=== PATIENT | female | born 1940 | race Caucasian/White ===

== ENCOUNTER → 2017-03-09 | Day surgery (SDC) | payer BC ==
[2017-02-07 15:24] VITALS: Ht 152.4 cm; Wt 79.1 kg
[~2017-03-09] VITALS: Ht 152.4 cm; Wt 79.1 kg
[~2017-03-09] MED LIST: 500ML BSS 0.3ML EPI 1:1000PF IRRIG ONE; ACETAMINOPHEN 325 MG TAB PO PRN; AMVISC PLUS 0.8ML SYRINGE INT OCU ONE; ATROPINE SULFATE 0.1 MG/ML 5ML SYR IV PRN; AcetaZOLAMIDE 250 MG TAB PO SCH; BETAXOLOL HCL 0.25% OP SUSP PER DROP CHARGE OPL SCH; BRIMONIDINE TART 0.2% OP SOLN PER DROP CHARGE ONE; BSS FLUSH ONE; CALC-354 PO; CLTP PO; ENDOCOAT 0.85ML SYRINGE INT OCU ONE; EpHEDrine SULFATE INJ 50 MG/ML AMP IV PRN; EpINEphrine INJ 1MG/ML AMP 1 MG/ML AMP ONE; FENTANYL CITRATE INJ 50 MCG/1 ML 2 ML VIAL IV PRN; FIBE1CHW PO; FLUMAZENIL 0.1 MG/1 ML 10 ML VIAL IV PRN; GLUC10007 PO; HYDROmorphone INJ 2 MG/ML SYR/VIAL IV PRN; LABETALOL HCL IV 5 MG/ML 20ML IV PRN; LACTATED RINGER'S 1000ML 1,000 ML IV SCH; LIDOCAINE 4% OP SOLN DROP CHARGE ONE; LIDOCAINE 4% OP SOLN DROP CHARGE OPL SCH; LIDOCAINE HCL 1% MPF 2 ML VIAL ONE; LISI-729 PO; MEPERIDINE HCL 25 MG/ML CARP IV PRN; MIDAZOLAM HCL 1 MG/ML 2ML VIAL ONE; MIX: 4ML BSS 1ML EPI 1:1000 PF INSTIL ONE; MOXIFLOXACIN OPH SOLN PER DROP CHARGE ONE; MULT-513 PO; NALOXONE HCL 0.4 MG/1 ML VIAL/CARP IV PRN; OCUCOAT 1 ML SOLN IO ONE; ONDANSETRON INJ 2 MG/ML 2 ML VIAL IV PRN; PANT40TA PO; PHENYLEPHRINE 100MCG/ML 5ML SYR IV PRN; POVIDONE-IODINE OP SOLN 30 ML BTL ONE; PRAV20TA PO; PROPARACAINE 0.5% OP SOLN PER DROP CHARGE OPL SCH; TOBRAMYCIN/DEXAMETHASONE OPH OINT PER APPLN CHARGE ONE
--- NOTE | 2017-03-09 06:45 | History & Physical Bridge - [place] ---
H&P Re-Evaluation Bridge Note: I have examined the patient, reviewed the History & Physical and in the interval since the performance of the History & Physical I have noted the following changes of clinical significance: No changes noted
[2017-03-09] MEDS: PHENYLEPHRINE HCL 2.5% OP SOLN PER DROP CHARGE OPL SCH ×2 (06:48→07:01)
[2017-03-09] MEDS: TROPICAMIDE 1% OP SOLN PER DROP CHARGE OPL SCH ×2 (06:49→07:02)
[2017-03-09] MEDS: CYCLOPENTOLATE HCL 1% OP SOLN PER DROP CHARGE OPL SCH ×2 (06:50→07:03)
[2017-03-09] MEDS: MOXIFLOXACIN OPH SOLN PER DROP CHARGE OPL SCH ×2 (06:51→07:04)
--- NOTE | 2017-03-09 07:36 | Discharge Instructions-SurgCtr ---
Discharge Instructions Date of Service Mar 09, 2017. Visit Reason for Visit: Cataract Left Eye Discharge Discharge Diagnosis / Problem: lens implant left eye Discharge Goals Goal(s): Improve function Activity Recommendations Activity Limitations: resume your previous activity Lifting Limitations: no more than 10 pounds Exercise/Sports Limitations: gradually increase as tolerated May Resume Sexual Activity: when tolerated Shower/Bathe: tomorrow Driving or Machine Use: resume 1 day after discharge Anesthesia . Post Anesthesia Instructions: If you have had General Anesthesia or IV Sedation: * Do not drive today. * Resume driving when surgeon permits. * Do not make important decisions or sign legal documents today. * Call surgeon for: 1. Temperature elevations greater than 101 degrees F. 2. Uncontrollable pain. 3. Excessive bleeding. 4. Persistent nausea and vomiting. 5. Medication intolerance (nausea, vomiting or rash). * For nausea and vomiting use only clear liquids such as: tea, soda, bouillon until nausea subsides, then gradually increase diet as tolerated. * If you have any concerns or questions, call your surgeon's office. If physician is unavailable and it is an emergency, call 911 or go to the nearest emergency room. . Instructions / Follow-Up Instructions / Follow-Up ACTIVITY RECOMMENDATIONS: * Light activities. * Mild irritation and blurred vision are common for the first few days. * You may walk outside, read, watch television. * Redness around the white part of the eye is common. MEDICATIONS: Resume previous medications unless instructed otherwise by your surgeon. * Take white Diamox (Acetazolamide) tablet at 1 pm today. Start all eye drops at 1 pm today: * Eye drops (today and tomorrow): Prednisone - one drop in operative eye every 3 hours while awake Ofloxacin - one drop in operative eye every 3 hours while awake SPECIAL CARE INSTRUCTIONS: * Tape plastic shield over eye to sleep at night. Call your doctor at with any concerns or problems. FOLLOW UP VISIT: Follow-up with Dr Lozano at [place] office as scheduled. Diet Recommendations Home Diet: no limitations Procedures Procedures Performed: cataract extraction with lens implant Pending Studies Studies pending at discharge: no Medical Emergencies . Who to Call and When: Medical Emergencies: If at any time you feel your situation is an emergency, please call 911 immediately. . Non-Emergent Contact Non-Emergency issues call your: Unarmed Security Guard Call Non-Emergent contact if: your pain is not controlled [phone] . . "Provider Documentation" section prepared by Oumar Lozano. .
--- NOTE | 2017-03-09 07:38 | [facility] Operative Report ---
Operative Report Date of Service Mar 09, 2017. Operative Report 1. PREOPERATIVE DIAGNOSIS: Senile nuclear cataract, left eye. 2. POSTOPERATIVE DIAGNOSIS: Senile nuclear cataract, left eye. 3. PROCEDURE: Phacoemulsification of left cataract with posterior chamber lens implant, type Bausch [employer] Lomb, model MI60L, power +22.5 diopters. ANESTHESIA: Local standby. SURGEON: Dr. Lozano. COMPLICATIONS: None. OPERATING TIME: 10 minutes. 4. OPERATION AND FINDINGS: DESCRIPTION OF PROCEDURE: The left pupil was dilated. The anesthetic was administered using a topical technique. The left eye was prepped and draped. A speculum was placed. A clear corneal incision was formed. The chamber was filled with Amvisc Plus and Endocoat. Epinephrine solution was used. A paracentesis was placed. A capsulorrhexis was performed. The nucleus was hydrodissected. The lens was removed with phacoemulsification. Time was 2.31 seconds. The aspiration unit was used to remove the cortex. The capsule was filled with Amvisc Plus. The lens implant was folded and placed into the capsule. The incision was hydrated. The Amvisc was aspirated. The wound was secure. The chamber was deep. The pupil was round. Brimonidine, TobraDex ointment and Vigamox solution were placed. The speculum was removed. The patient was returned to the Recovery Room in stable condition. I attest to the content of the Intraoperative Record and any orders documented therein. Any exceptions are noted below. The scribe's documentation has been prepared in my presence, under my direction and personally reviewed by me in its entirety. I confirm that the note above accurately reflects all work, treatment, procedures, and medical decision making performed by me. I personally scribed for Oumar Lozano M.D. (DONALD) on 03/09/17 at 07:38. Electronically submitted by Liya Martínez ([email or web address]).
[2017-03-09 07:40] VITALS: TEMP 36.5
--- NOTE | 2017-03-09 07:46 | Anesthesia Progress Nt - [facility] ---
Anesthesia Post Op Note Date & Time Mar 09, 2017 at 07:46 Vital Signs Pain Intensity: 0 Vital Signs Past 12 Hours Date Time Temp Pulse Resp B/P (MAP) Pulse Ox O2 Delivery O2 Flow Rate FiO2 03/09/17 07:40 36.5 59 16 109/57 (74) 98 Room Air 03/09/17 06:36 36.6 72 16 151/93 (112) 97 Room Air
[2017-03-09 08:10] VITALS: BP 117/81; PULSE 62; O2SAT 98
== END | disposition home or self-care (01) ==
LOC: X.SURG 06:22
PROVIDERS: ATTEND Specialist
DX: H25.12 Age-related nuclear cataract, left eye (principal); I10 Essential (primary) hypertension

== ENCOUNTER → 2017-03-23 | Day surgery (SDC) | payer BC ==
[2017-03-15 14:41] VITALS: Ht 152.4 cm; Wt 79.1 kg
[~2017-03-23] VITALS: Ht 152.4 cm; Wt 79.1 kg
[~2017-03-23] MED LIST changes: -BETAXOLOL HCL 0.25% OP SUSP PER DROP CHARGE OPL SCH; +BETAXOLOL HCL 0.25% OP SUSP PER DROP CHARGE OPR SCH; -CLTP PO; -FENTANYL CITRATE INJ 50 MCG/1 ML 2 ML VIAL IV PRN; -FLUMAZENIL 0.1 MG/1 ML 10 ML VIAL IV PRN; -HYDROmorphone INJ 2 MG/ML SYR/VIAL IV PRN; -LABETALOL HCL IV 5 MG/ML 20ML IV PRN; -LACTATED RINGER'S 1000ML 1,000 ML IV SCH; +LACTATED RINGER'S 1000ML 500 ML IV SCH; -LIDOCAINE 4% OP SOLN DROP CHARGE OPL SCH; +LIDOCAINE 4% OP SOLN DROP CHARGE OPR SCH; -MEPERIDINE HCL 25 MG/ML CARP IV PRN; -NALOXONE HCL 0.4 MG/1 ML VIAL/CARP IV PRN; -PHENYLEPHRINE 100MCG/ML 5ML SYR IV PRN; -PROPARACAINE 0.5% OP SOLN PER DROP CHARGE OPL SCH; +PROPARACAINE 0.5% OP SOLN PER DROP CHARGE OPR SCH; +TROPICAMIDE 0.5% OP SOLN 15 ML BTL OPR SCH
[2017-03-23] MEDS: PHENYLEPHRINE HCL 2.5% OP SOLN PER DROP CHARGE OPR SCH ×2 (08:22→08:29)
[2017-03-23] MEDS: TROPICAMIDE 1% OP SOLN PER DROP CHARGE OPR SCH ×2 (08:23→08:28)
[2017-03-23] MEDS: CYCLOPENTOLATE HCL 1% OP SOLN PER DROP CHARGE OPR SCH ×2 (08:24→08:27)
[2017-03-23] MEDS: MOXIFLOXACIN OPH SOLN PER DROP CHARGE OPR SCH ×2 (08:25→08:35)
--- NOTE | 2017-03-23 09:13 | Discharge Instructions-SurgCtr ---
Discharge Instructions Date of Service Mar 23, 2017. Visit Reason for Visit: Cataract Right Eye Discharge Discharge Diagnosis / Problem: lens implant right eye Discharge Goals Goal(s): Improve function Activity Recommendations Activity Limitations: resume your previous activity Lifting Limitations: no more than 10 pounds Exercise/Sports Limitations: gradually increase as tolerated May Resume Sexual Activity: when tolerated Shower/Bathe: tomorrow Driving or Machine Use: resume 1 day after discharge Anesthesia . Post Anesthesia Instructions: If you have had General Anesthesia or IV Sedation: * Do not drive today. * Resume driving when surgeon permits. * Do not make important decisions or sign legal documents today. * Call surgeon for: 1. Temperature elevations greater than 101 degrees F. 2. Uncontrollable pain. 3. Excessive bleeding. 4. Persistent nausea and vomiting. 5. Medication intolerance (nausea, vomiting or rash). * For nausea and vomiting use only clear liquids such as: tea, soda, bouillon until nausea subsides, then gradually increase diet as tolerated. * If you have any concerns or questions, call your surgeon's office. If physician is unavailable and it is an emergency, call 911 or go to the nearest emergency room. . Instructions / Follow-Up Instructions / Follow-Up ACTIVITY RECOMMENDATIONS: * Light activities. * Mild irritation and blurred vision are common for the first few days. * You may walk outside, read, watch television. * Redness around the white part of the eye is common. MEDICATIONS: Resume previous medications unless instructed otherwise by your surgeon. * Take white Diamox (Acetazolamide) tablet at 1 pm today. Start all eye drops at 1 pm today: * Eye drops (today and tomorrow): Prednisone - one drop in operative eye every 3 hours while awake Ofloxacin - one drop in operative eye every 3 hours while awake SPECIAL CARE INSTRUCTIONS: * Tape plastic shield over eye to sleep at night. Call your doctor at with any concerns or problems. FOLLOW UP VISIT: Follow-up with Dr Lozano at [place] office as scheduled. Diet Recommendations Home Diet: no limitations Procedures Procedures Performed: cataract extraction with lens implant Pending Studies Studies pending at discharge: no Medical Emergencies . Who to Call and When: Medical Emergencies: If at any time you feel your situation is an emergency, please call 911 immediately. . Non-Emergent Contact Non-Emergency issues call your: Bi Lead Call Non-Emergent contact if: your pain is not controlled [phone] . . "Provider Documentation" section prepared by Oumar Lozano. .
--- NOTE | 2017-03-23 09:14 | [facility] Operative Report ---
Operative Report Date of Service Mar 23, 2017. Operative Report 1. PREOPERATIVE DIAGNOSIS: Senile nuclear cataract, right eye. 2. POSTOPERATIVE DIAGNOSIS: Senile nuclear cataract, right eye. 3. PROCEDURE: Phacoemulsification of right cataract with posterior chamber lens implant, type Bausch [employer] Lomb, model MI60L, power +22.5 diopters. ANESTHESIA: Local standby. SURGEON: Dr. Lozano. COMPLICATIONS: None. OPERATING TIME: 10 minutes. 4. OPERATION AND FINDINGS: DESCRIPTION OF PROCEDURE: The right pupil was dilated. The anesthetic was administered using a topical technique. The right eye was prepped and draped. A speculum was placed. A clear corneal incision was formed. The chamber was filled with Amvisc Plus and Endocoat. Epinephrine solution was used. A paracentesis was placed. A capsulorrhexis was performed. The nucleus was hydrodissected. The lens was removed with phacoemulsification. Time was 3.01 seconds. The aspiration unit was used to remove the cortex. The capsule was filled with Amvisc Plus. The lens implant was folded and placed into the capsule. The incision was hydrated. The Amvisc was aspirated. The wound was secure. The chamber was deep. The pupil was round. Brimonidine, TobraDex ointment and Vigamox solution were placed. The speculum was removed. The patient was returned to the Recovery Room in stable condition. I attest to the content of the Intraoperative Record and any orders documented therein. Any exceptions are noted below. The scribe's documentation has been prepared in my presence, under my direction and personally reviewed by me in its entirety. I confirm that the note above accurately reflects all work, treatment, procedures, and medical decision making performed by me. I personally scribed for Oumar Lozano M.D. (DONALD) on 03/23/17 at 09:14. Electronically submitted by Liya Martínez ([email or web address]).
--- NOTE | 2017-03-23 09:29 | Anesthesiology Progress Note ---
Anesthesia Post Op Note Date & Time Mar 23, 2017 at 09:28 Vital Signs Pain Intensity: 0 Vital Signs Past 12 Hours Date Time Temp Pulse Resp B/P (MAP) Pulse Ox O2 Delivery O2 Flow Rate FiO2 03/23/17 08:16 36.6 73 16 122/80 (94) 98 Room Air Notes Mental Status: alert / awake / arousable, participated in evaluation Nausea / Vomiting: adequately controlled Pain: adequately controlled Airway Patency, RR, SpO2: stable & adequate BP & HR: stable & adequate Hydration State: stable & adequate Anesthetic Complications: no major complications apparent
[2017-03-23 09:46] VITALS: BP 128/79; PULSE 57; TEMP 36.5; O2SAT 97
== END | disposition home or self-care (01) ==
LOC: X.SURG 07:26
PROVIDERS: ATTEND Specialist
DX: H25.11 Age-related nuclear cataract, right eye (principal); I10 Essential (primary) hypertension; K21.9 Gastro-esophageal reflux disease without esophagitis

== ENCOUNTER → 2017-05-18 | Day surgery (SDC) | payer BC ==
[2017-05-17 12:19] VITALS: Ht 152.4 cm; Wt 79.1 kg
[~2017-05-18] VITALS: Ht 152.4 cm; Wt 79.1 kg
[~2017-05-18] MED LIST changes: -500ML BSS 0.3ML EPI 1:1000PF IRRIG ONE; +BSS 500ML IRRIG ONE; -ENDOCOAT 0.85ML SYRINGE INT OCU ONE; -MIX: 4ML BSS 1ML EPI 1:1000 PF INSTIL ONE; +MOXIFLOXACIN OPH SOLN PER DROP CHARGE OPR SCH; -OCUCOAT 1 ML SOLN IO ONE; -ONDANSETRON INJ 2 MG/ML 2 ML VIAL IV PRN; -TROPICAMIDE 0.5% OP SOLN 15 ML BTL OPR SCH; +TROPICAMIDE 1% OP SOLN PER DROP CHARGE OPR SCH; +[UNRECOGNIZED DRUG - REMARK] SCH
[2017-05-18] MEDS: TROPICAMIDE 1% OP SOLN PER DROP CHARGE OPR SCH ×2 (09:24→09:27)
[2017-05-18] MEDS: MOXIFLOXACIN OPH SOLN PER DROP CHARGE OPR SCH ×2 (09:25→09:28)
--- NOTE | 2017-05-18 09:43 | Discharge Instructions-SurgCtr ---
Discharge Instructions Date of Service May 18, 2017. Visit Reason for Visit: Right Eye Lens Fragments Discharge Discharge Diagnosis / Problem: removal of cataract fragments right eye Discharge Goals Goal(s): Improve function Activity Recommendations Activity Limitations: resume your previous activity Lifting Limitations: no more than 10 pounds Exercise/Sports Limitations: gradually increase as tolerated May Resume Sexual Activity: when tolerated Shower/Bathe: tomorrow Driving or Machine Use: resume 1 day after discharge Anesthesia . Post Anesthesia Instructions: If you have had General Anesthesia or IV Sedation: * Do not drive today. * Resume driving when surgeon permits. * Do not make important decisions or sign legal documents today. * Call surgeon for: 1. Temperature elevations greater than 101 degrees F. 2. Uncontrollable pain. 3. Excessive bleeding. 4. Persistent nausea and vomiting. 5. Medication intolerance (nausea, vomiting or rash). * For nausea and vomiting use only clear liquids such as: tea, soda, bouillon until nausea subsides, then gradually increase diet as tolerated. * If you have any concerns or questions, call your surgeon's office. If physician is unavailable and it is an emergency, call 911 or go to the nearest emergency room. . Instructions / Follow-Up Instructions / Follow-Up ACTIVITY RECOMMENDATIONS: * Light activities. * Mild irritation and blurred vision are common for the first few days. * You may walk outside, read, watch television. * Redness around the white part of the eye is common. MEDICATIONS: Resume previous medications unless instructed otherwise by your surgeon. * Take white Diamox (Acetazolamide) tablet at 1 pm today. Start all eye drops at 1 pm today: * Eye drops (today and tomorrow): Prednisone - one drop in operative eye every 3 hours while awake Ofloxacin - one drop in operative eye every 3 hours while awake SPECIAL CARE INSTRUCTIONS: * Tape plastic shield over eye to sleep at night. Call your doctor at with any concerns or problems. FOLLOW UP VISIT: Follow-up with Dr Lozano at [facility] as scheduled. Diet Recommendations Home Diet: no limitations Procedures Procedures Performed: cataract fragment removal x2 Pending Studies Studies pending at discharge: no Medical Emergencies . Who to Call and When: Medical Emergencies: If at any time you feel your situation is an emergency, please call 911 immediately. . Non-Emergent Contact Non-Emergency issues call your: Corporate Executive Chef Call Non-Emergent contact if: your pain is not controlled [phone] . . "Provider Documentation" section prepared by Oumar Lozano. .
--- NOTE | 2017-05-18 09:48 | [facility] Operative Report ---
Operative Report Date of Service May 18, 2017. Operative Report 1. PREOPERATIVE DIAGNOSIS: Retained Nuclear Fragment, right eye. 2. POSTOPERATIVE DIAGNOSIS: Same, right eye. 3. PROCEDURE: Aspiration of retained nuclear fragments right eye. ANESTHESIA: Local standby. SURGEON: Dr. Lozano. COMPLICATIONS: None. OPERATING TIME: 5 minutes. 4. OPERATION AND FINDINGS: DESCRIPTION OF PROCEDURE: The right pupil was dilated. The anesthetic was administered using a topical technique. The right eye was prepped and draped. A speculum was placed. A clear corneal incision was formed. The chamber was filled with Amvisc Plus. A paracentesis was placed. A capsulorrhexis was performed. The aspiration unit was used to remove the two cortex fragments. The Amvisc was aspirated. The wound was secure. The chamber was deep. The pupil was round. Brimonidine, TobraDex ointment and Vigamox solution were placed. The speculum was removed. The patient was returned to the Recovery Room in stable condition. I attest to the content of the Intraoperative Record and any orders documented therein. Any exceptions are noted below. The scribe's documentation has been prepared in my presence, under my direction and personally reviewed by me in its entirety. I confirm that the note above accurately reflects all work, treatment, procedures, and medical decision making performed by me. I personally scribed for Oumar Lozano M.D. (DONALD) on 05/18/17 at 09:48. Electronically submitted by Liya Martínez ([facility]).
[2017-05-18 09:49] VITALS: TEMP 36.6
--- NOTE | 2017-05-18 10:07 | Anesthesia Progress Nt - [facility] ---
Anesthesia Post Op Note Date & Time May 18, 2017 at 10:06 Vital Signs Pain Intensity: 0 Vital Signs Past 12 Hours Date Time Temp Pulse Resp B/P (MAP) Pulse Ox O2 Delivery O2 Flow Rate FiO2 05/18/17 09:49 36.6 71 20 126/81 (96) 97 Room Air 05/18/17 09:11 36.9 83 16 172/113 (132) 100 Room Air Notes Mental Status: alert / awake / arousable, participated in evaluation Pt Amnestic to Procedure: Yes Nausea / Vomiting: adequately controlled Pain: adequately controlled Airway Patency, RR, SpO2: stable & adequate BP & HR: stable & adequate Hydration State: stable & adequate Anesthetic Complications: no major complications apparent
[2017-05-18 10:14] VITALS: BP 125/81; PULSE 71; O2SAT 96
== END | disposition home or self-care (01) ==
LOC: X.SURG 08:57
PROVIDERS: ATTEND Specialist
DX: H59.021 Cataract (lens) fragments in eye following cataract surgery, right eye (principal); I10 Essential (primary) hypertension

== ENCOUNTER 2018-08-24 14:29 | Inpatient (IN) ==
[2018-08-24] MEDS ORDERED: ONDANSETRON INJ 2 MG/ML 2 ML VIAL IV PRN (16:31)
[2018-08-24] MEDS ORDERED: ACETAMINOPHEN 325 MG TAB PO PRN (16:31)
[2018-08-24] MEDS ORDERED: NITROGLYCERIN SL 0.4 MG/TAB TAB SL PRN (16:31)
--- NOTE | 2018-08-24 16:57 | History and Physical Report ---
DATE OF ADMISSION: 08/24/2018 CHIEF COMPLAINT: Palpitations, shortness of breath. HISTORY OF PRESENT ILLNESS: This is a 78-year-old female with past medical history significant for hyperlipidemia, hypertension, osteoporosis, history of breast cancer status post left partial mastectomy in 1992, presents with palpitations and shortness of breath. She was in the ER a couple of days ago. She did have palpitations and shortness of breath after walking [address]. At that time, EKG showed PVCs and first-degree AV block and was thought from dehydration, given fluids and discharged home to followup with PCP.. She has a followup appointment with the family doctor today and she is still feeling the same palpitations and short of breath on and off and on and off lightheadedness. In the PCP's office, heart rate was ranging anywhere from bradycardia to tachycardia, the question of tachybrady syndrome and she was directly admitted to the hospital. Currently, resting comfortable and denies any chest pain. She says the shortness of breath comes and goes, sometimes can happen while she was resting and also lightheadedness and palpitations on and off. Denies any headache, no blurred visions, no earache, no runny nose, no sore throat, no difficulty swallowing. Appetite is okay. No recent weight gain or weight loss. No difficulty swallowing. Sleeps okay. Otherwise, ambulates okay. Denies any nausea, no abdominal pain. Normal bowel and bladder movements. No burning micturition, no hematuria, no melena or hematochezia. Has chronic lower extremity edema, no rash seen. Denies any easy bruising or bleeding. ALLERGIES: ASPIRIN, CAUSES BLEEDING. PAST MEDICAL HISTORY: As mentioned above. PAST SURGICAL HISTORY: EGDs, colonoscopies, laparoscopy, lower abdominal hernia repair, left partial mastectomy in 2018, endoscopic ultrasound. MEDICATIONS: The patient is on glucosamine 1000 mg p.o. daily, calcium plus vitamin D 1 tablet daily, lisinopril 5 mg daily, Protonix 40 mg p.o. daily, pravastatin 20 mg p.o. daily, multivitamins tablet daily. FAMILY HISTORY: Significant for mother who had breast cancer, heart disorder and stroke. Sister has stroke. Father had prostate cancer. SOCIAL HISTORY: , quit smoking more than 30 years ago. No alcohol use, no drug use. REVIEW OF SYMPTOMS: As per HPI. Rest of review of systems is negative. PHYSICAL EXAMINATION: GENERAL: The patient is of moderate built, not in acute distress. VITAL SIGNS: Temperature 36.7, pulse 86, respiratory rate 18, blood pressure 149/83, oxygen 98% room air. HEENT: No pallor, no icterus. NECK: No JVD, no neck masses, no carotid bruits. CARDIOVASCULAR: S1, S2 heard, regular rate and rhythm, no murmur, no gallop. RESPIRATORY SYSTEM: Normal AP diameter. No accessory muscle use. No wheezing, no crackles. ABDOMEN: Soft, bowel sounds present. Nontender. No distention. CENTRAL NERVOUS SYSTEM: Cranial nerves II-XII grossly intact. Nonfocal. EXTREMITIES: Lower extremity edema present, no erythema seen. LABORATORIES: Unavailable at this time. ASSESSMENT AND PLAN: This is a 78-year-old female who presents with palpitations, shortness of breath going on for several days. 1. Palpitations and shortness of breath, going on for several days and also with lightheadedness on and off. Recently in the ER, EKG showed PVCs and first-degree AV block. Recent stress echo about 1 year ago was unremarkable. We will admit to tele floor. Monitor on tele floor. Will Get EKG. Serial cardiac enzymes, echocardiogram. Questionable tachybrady. We will consult cardiology for further recommendations. 2. Elevated dimer. CTA chest No PE. Follow lower extremity Doppler. 3. History of hyperlipidemia. Continue home statin and check fasting lipid profile. 4. Lower extremity edema. chronic. Lympedema? Follow doppler. Follow echo. 3. Gastroesophageal reflux disease. Continue Protonix. 4. Hypertension, on lisinopril. We will monitor the blood pressure. 5. History of breast cancer, status post left partial mastectomy in 1982. 6. Deep venous thrombosis prophylaxis, SCDs for now. 5. Disposition: Close monitoring in tele floor. Level 1 full code. MTDD
--- NOTE | 2018-08-24 16:58 | XRay Report ---
SINGLE VIEW CHEST CLINICAL HISTORY: Dyspnea. FINDINGS: An AP, portable, upright chest radiograph is compared to study dated 08/22/2018. The examina tion is degraded by portable technique and patient rotation. The heart is enlarged and there is athe rosclerotic calcification of the thoracic aorta. The pulmonary vasculature is noncongested. Bibasilar atelectasis is observed. No airspace consolidation or pleural effusion is identified. No pneumothora x is seen. The skeletal structures are osteopenic. The bony thorax is grossly intact. Surgical clips are noted in the left axilla. IMPRESSION: Cardiomegaly with no acute cardiopulmonary abnormality. Electronically signed by: Tej Warren M.D. 08/24/2018 4:56 PM
[2018-08-24 17:20] LABS: Basophils # (auto) 0.03 K/uL (0-0.2); Basophils % (auto) 0.4 %; Eosinophils # (auto) 0.08 K/uL (0-0.5); Hematocrit (blood only) 42.2 % (37-47); Hemoglobin 14.5 g/dL (12.0-16.0); Immature Granulocytes # (auto) 0.01 K/uL (0.00-0.02); Immature Granulocytes % (auto) 0.1 %; Lymphocytes # (auto) 2.17 K/uL (1.2-3.4); Lymphocytes % (auto) 26.2 %; Mean Corpuscular Hgb Conc 34.4 g/dL (32-36); Mean Corpuscular Volume 90.4 fL (80-100); Mean Platelet Volume 10.8 fL (7.4-10.4); Monocytes # (auto) 0.54 K/uL (0.11-0.59); Monocytes % (auto) 6.5 %; Neutrophils # (auto) 5.45 K/uL (1.4-6.5); Neutrophils % (auto) 65.8 %; Platelet Count 278 K/uL (130-400); RDW Coefficient of Variation 13.4 % (11.5-14.5); Red Blood Count 4.67 M/uL (4.2-5.4); White Blood Count 8.28 K/uL (4.8-10.8)
[2018-08-24 17:38] LABS: Partial Thromboplastin Time 27.4 Seconds (21.0-31.0); Prothrombin Time 10.6 Seconds (9.0-12.0)
[2018-08-24 17:40] LABS: Alanine Aminotransferase 21 U/L (12-78); Albumin Level 3.9 gm/dl (3.4-5.0); Aspartate Aminotransferase 16 U/L (15-37); BUN Creatinine Ratio 19.1 (10-20); Blood Urea Nitrogen 13 mg/dl (7-18); Calcium 8.8 mg/dl (8.5-10.1); Carbon Dioxide 24 mmol/L (21-32); Chloride 109 mmol/L (98-107); Creatinine Clr Calc Pharmacy 60.2 ml/min; D Dimer 690 ug/L FEU (0-500); Est GFR (African American) 96.6; Est GFR (Non-African American) 83.4; Glucose 86 mg/dl (70-99); Magnesium 2.1 mg/dl (1.8-2.4); Potassium 3.8 mmol/L (3.5-5.1); Sodium 139 mmol/L (136-145)
[2018-08-24 17:51] LABS: Albumin Globulin Ratio 1.1 (0.9-2); Alkaline Phosphatase 72 U/L (45-117); Bilirubin,Total 0.7 mg/dl (0.2-1); Globulin 3.5 gm/dl (2.5-4.0); Total Protein 7.4 gm/dl (6.4-8.2); Troponin I < 0.015 ng/ml (0-0.045)
[2018-08-24] MEDS ORDERED: OPTIRAY 320 125ml IV PRN (18:23)
--- NOTE | 2018-08-24 18:48 | CT Scan Report ---
CT ANGIOGRAM OF THE CHEST CLINICAL HISTORY: Dyspnea. COMPARISON STUDY: Chest x-ray dated 08/24/2018. TECHNIQUE: Following the IV administration of 119 cc of Optiray 320, CT angiogram of the chest was pe rformed from the upper abdomen to the thoracic inlet utilizing the pulmonary embolus protocol. Images are reviewed in the axial, sagittal, and coronal planes. 3-D MIPS images are created and assessed. I V contrast was administered without complication. A dose lowering technique was utilized adhering to the principles of ALARA. CT DOSE: 281.24 mGy.cm FINDINGS: Thyroid: Imaged portions of the thyroid gland are normal in size and attenuation. Thoracic aorta: The thoracic aorta is normal in caliber and demonstrates standard 3-vessel arch anato my. No dissection is seen. Pulmonary vasculature: The pulmonary trunk is normal in caliber. There are no filling defects identif ied in main, lobar, or segmental pulmonary branches to suggest pulmonary embolus. Heart: The heart is enlarged and without pericardial effusion. Lungs and pleural spaces: There are foci of bibasilar scarring/atelectasis. No airspace consolidation or pleural effusion is identified. The trachea and central airways are clear. Subpleural scarring is noted in the anterior left upper lobe, likely treatment related. Mediastinum: There is no mediastinal lymphadenopathy. A 2.0 cm pretracheal nodule seen on image #188 is hyperdense and likely represents thyroid tissue. Joy: Clear. Axillae: There is no axillary lymphadenopathy. Surgical clips are noted in the left axilla. Upper abdomen: Partially visualized upper abdominal viscera is within normal limits. Skeletal structures: The skeletal structures are osteopenic. Degenerative change is noted in the shou lders and thoracic spine. No lytic or blastic bony lesions are seen. IMPRESSION: 1. There is no evidence of pulmonary embolus in the main, lobar, or segmental pulmonary arteries. 2. There is no airspace consolidation or pleural effusion. 3. Cardiomegaly. Electronically signed by: Tej Warren M.D. 08/24/2018 6:47 PM
--- NOTE | 2018-08-24 21:01 | Ultrasound Report ---
ULTRASOUND BILATERAL LOWER EXTREMITY VENOUS CLINICAL HISTORY: Dyspnea. Clinical concern for deep venous thrombosis. COMPARISON STUDY: Right lower extremity venous ultrasound dated 01/12/2006. TECHNIQUE: Real-time, grayscale, and color Doppler sonography of the deep veins of the right and left lower extremity was performed from the inguinal crease to the calf. Compression and augmentation wer e utilized. FINDINGS: There is no sonographic evidence of deep venous thrombosis identified in the right or left lower extremity. The common femoral, superficial femoral, and popliteal veins are patent and normally compressible bilaterally. The greater saphenous vein and the profunda femoris vein at the junction w ith the common femoral vein are clear in both legs. The visualized calf veins are patent bilaterally. IMPRESSION: There is no sonographic evidence of deep venous thrombosis identified in the right or lef t lower extremity. Electronically signed by: Tej Warren M.D. 08/24/2018 8:59 PM
--- NOTE | 2018-08-25 03:02 | Consultation Report ---
DATE OF CONSULTATION: 08/24/2018 REFERRING PHYSICIAN: Wai Valencia MD PRIMARY CARE PHYSICIAN: Dr. Cain. INDICATIONS: Palpitations, shortness of breath. HISTORY OF PRESENT ILLNESS: The patient is a 78-year-old female whose history is notable for hypertension, hyperlipidemia, past history of breast carcinoma, who has recently developed symptoms of palpitations and mild exertional dyspnea, now intermittent dyspnea at rest, which resulted in ER presentation 2 days ago. Evaluation at that time was unrevealing, though telemetry revealed intermittent ventricular ectopy. The patient was given mild fluid hydration and discharged. Chronic first-degree AV block was noted on EKGs. No acute changes to suggest ischemia or significant electrolyte abnormality. The patient represented to primary care physician's office today once again describing symptoms of palpitations and heart pounding, symptoms of breathlessness at times and often occurring even at rest. She notes no specific exertional relationship; notes no syncope or near syncope; notes no chest pain or discomfort; notes no unexplained fevers, chills, or infections; notes no cough, hoarseness, wheeze or hemoptysis; notes no bleeding difficulties; notes no melena, hematochezia, dysuria or hematuria. Appetite and weight have been generally stable. She is usually active and feeling well. Does senior [employer] classes at least 2 days per week, and notes no specific limitations with such. She has undergone prior stress testing approximately 1 year ago in August of 2017 with patient having no evidence of stress-induced ischemia, the patient exercising for 6 minutes on a Levi protocol with appropriate heart rate and mildly hypertensive blood pressure response. She is now comfortable. Notes no complaints sitting in bed in the hospital. Telemetry on admission demonstrated sinus rhythm with first-degree AV block, intermittent ventricular ectopy, and intermittent bigeminy. REVIEW OF SYSTEMS: As above or otherwise negative. ALLERGIES: NOTED TO BE BLEEDING ISSUES WITH ASPIRIN USAGE INCLUDING GASTRIC ULCER. MEDICATIONS: On admission were calcium carbonate with D 2 tablets per day, cranberry plus vitamin C 1 capsule per day, glucosamine sulfate 1000 mg p.o. daily, Fiber Select Gummies, lisinopril 5 mg p.o. daily, multivitamin per day, pantoprazole 40 mg p.o. daily, and pravastatin 20 mg p.o. daily. PAST SURGICAL HISTORY: Notable for prior left partial mastectomy in 1992. EGD has been performed in 2012 and 2012 as well as 2019 for history of gastric ulcer. FAMILY HISTORY: Notable for mother with a pacemaker. SOCIAL HISTORY: The patient is a prior smoker, but none recently. No significant alcohol use. No [id number] medication use of significance. PHYSICAL EXAMINATION: GENERAL: The patient is a comfortable, age-appropriate female in no acute distress. VITAL SIGNS: Reveals a heart rate of 68-90, blood pressure is 149/83. The patient is afebrile. O2 saturations are 98% on room air. HEENT: Normocephalic, atraumatic. Nares without discharge. Throat was clear. NECK: Supple without thyromegaly, lymphadenopathy, or JVD. There are no carotid bruits. Carotid pulses are 2/4 without delay. LUNGS: Clear to auscultation. CARDIOVASCULAR: Regular. There are audible ventricular ectopic beats and intermittent bigeminy. ABDOMEN: Soft, nontender. There is no palpable hepatosplenomegaly. There is no hepatojugular reflux. EXTREMITIES: Without cyanosis or clubbing. There is 1+ to trace peripheral edema. There is no palpable cord or Homans sign. NEUROLOGIC: The patient is intact. DATA: EKG is pending. EKG done in outpatient setting today revealed sinus rhythm with first-degree AV block, poor R-wave progression across the anterior precordial leads and inferior leads, rate 90 beats per minute. Findings are similar to study of August 2017. LABORATORY STUDIES: Done on 08/22/2018 revealed normal white cell count, hemoglobin, electrolytes, and differential. No troponin or lipase elevation. IMAGING DATA: Chest x-ray reveals flattening of the left atrial border with a normal size cardiac silhouette. IMPRESSION: The patient is a 78-year-old female with recent symptoms of palpitations and breathlessness. Telemetry is demonstrating frequent ventricular ectopy and intermittent bigeminy with negative initial evaluation in the Emergency Room. PLAN: Echocardiogram has been ordered for today. We will maintain on telemetry overnight given symptoms. The patient will be kept n.p.o. in a.m. to assess needs for further testing. In the interim, additional laboratory studies will be ordered including TSH, D-dimer. The patient is currently comfortable without acute complaint and agreeable to plan.
[2018-08-25 05:23] LABS: Chol HDL Ratio 2; Cholesterol 145 mg/dl (0-200); HDL Cholesterol 64 mg/dl; LDL Cholesterol Calculated 73 mg/dl; Triglycerides 38 mg/dl (0-150); Troponin I < 0.015 ng/ml (0-0.045); VLDL Cholesterol 8 mg/dl
[2018-08-25 05:37] LABS: Basophils # (auto) 0.01 K/uL (0-0.2); Basophils % (auto) 0.2 %; Eosinophils # (auto) 0.15 K/uL (0-0.5); Eosinophils % (auto) 2.7 %; Hematocrit (blood only) 37.6 % (37-47); Hemoglobin 12.8 g/dL (12.0-16.0); Immature Granulocytes # (auto) 0.01 K/uL (0.00-0.02); Immature Granulocytes % (auto) 0.2 %; Lymphocytes # (auto) 1.77 K/uL (1.2-3.4); Lymphocytes % (auto) 31.5 %; Mean Corpuscular Volume 90.4 fL (80-100); Mean Platelet Volume 10.3 fL (7.4-10.4); Monocytes # (auto) 0.55 K/uL (0.11-0.59); Monocytes % (auto) 9.8 %; Neutrophils # (auto) 3.13 K/uL (1.4-6.5); Neutrophils % (auto) 55.6 %; Platelet Count 252 K/uL (130-400); RDW Coefficient of Variation 13.4 % (11.5-14.5); Red Blood Count 4.16 M/uL (4.2-5.4); White Blood Count 5.62 K/uL (4.8-10.8)
[2018-08-25 05:54] LABS: BUN Creatinine Ratio 20.4 (10-20); Calcium 7.9 mg/dl (8.5-10.1); Est GFR (African American) 94.6; Est GFR (Non-African American) 81.6; Potassium 3.9 mmol/L (3.5-5.1)
[2018-08-25] MEDS ORDERED: PRAVASTATIN SOD 20 MG TAB PO SCH (09:00)
[2018-08-25] MEDS ORDERED: MULTIVITAMIN TAB PO SCH (09:00)
[2018-08-25] MEDS ORDERED: PANTOprazole 40 MG TAB PO SCH (09:00)
[2018-08-25] MEDS ORDERED: LISINOPRIL 5 MG TAB PO SCH (09:00)
--- NOTE | 2018-08-25 15:51 | Discharge Summary ---
Date of Service August 25, 2018 Admission HPI Per Admitting Provider CHIEF COMPLAINT: Palpitations, shortness of breath. HISTORY OF PRESENT ILLNESS: This is a 78-year-old female with past medical history significant for hyperlipidemia, hypertension, osteoporosis, history of breast cancer status post left partial mastectomy in 1992, presents with palpitations and shortness of breath. She was in the ER a couple of days ago. She did have palpitations and shortness of breath after [place] [address] [place] [address]. At that time, EKG showed PVCs and first-degree AV block and was thought from dehydration, given fluids and discharged home to followup with PCP.. She has a followup appointment with the family doctor today and she is still feeling the same palpitations and short of breath on and off and on and off lightheadedness. In the PCP's office, heart rate was ranging anywhere from bradycardia to tachycardia, the question of tachybrady syndrome and she was directly admitted to the hospital. Currently, resting comfortable and denies any chest pain. She says the shortness of breath comes and goes, sometimes can happen while she was resting and also lightheadedness and palpitations on and off. Denies any headache, no blurred visions, no earache, no runny nose, no sore throat, no difficulty swallowing. Appetite is okay. No recent weight gain or weight loss. No difficulty swallowing. Sleeps okay. Otherwise, ambulates okay. Denies any nausea, no abdominal pain. Normal bowel and bladder movements. No burning micturition, no hematuria, no melena or hematochezia. Has chronic lower extremity edema, no rash seen. Denies any easy bruising or bleeding. ALLERGIES: ASPIRIN, CAUSES BLEEDING. PAST MEDICAL HISTORY: As mentioned above. PAST SURGICAL HISTORY: EGDs, colonoscopies, laparoscopy, lower abdominal hernia repair, left partial mastectomy in 2018, endoscopic ultrasound. MEDICATIONS: The patient is on glucosamine 1000 mg p.o. daily, calcium plus vitamin D 1 tablet daily, lisinopril 5 mg daily, Protonix 40 mg p.o. daily, pravastatin 20 mg p.o. daily, multivitamins tablet daily. FAMILY HISTORY: Significant for mother who had breast cancer, heart disorder and stroke. Sister has stroke. Father had prostate cancer. SOCIAL HISTORY: , quit smoking more than 30 years ago. No alcohol use, no drug use. REVIEW OF SYMPTOMS: As per HPI. Rest of review of systems is negative. Admission Exam Per Admitting Provider PHYSICAL EXAMINATION: GENERAL: The patient is of moderate built, not in acute distress. VITAL SIGNS: Temperature 36.7, pulse 86, respiratory rate 18, blood pressure 149/83, oxygen 98% room air. HEENT: No pallor, no icterus. NECK: No JVD, no neck masses, no carotid bruits. CARDIOVASCULAR: S1, S2 heard, regular rate and rhythm, no murmur, no gallop. RESPIRATORY SYSTEM: Normal AP diameter. No accessory muscle use. No wheezing, no crackles. ABDOMEN: Soft, bowel sounds present. Nontender. No distention. CENTRAL NERVOUS SYSTEM: Cranial nerves II-XII grossly intact. Nonfocal. EXTREMITIES: Lower extremity edema present, no erythema seen. Principal Diagnosis Palpitations and shortness of breath -- likely from PVCs Discharge Exam Vital Signs (Past 24 Hours): Last Vital Signs Temp 36.7 C 08/25/18 15:44 Pulse 70 08/25/18 15:44 Resp 18 08/25/18 15:44 BP 117/75 08/25/18 15:44 Pulse Ox 96 08/25/18 15:44 Physical Exam: General- oriented x 3, not in distress, speaks in sentences with no effort or accessory muscle use Head- atraumatic Eyes- PERRL, EOMI, anicteric ENT- oropharynx clear Neck- supple, no JVD, no adenopathy, no thyromegaly; carotids +2/2, no bruits appreciated Lungs- clear to auscultation bilaterally, no rales/wheezes Heart- normal rate, regular rhythm; no murmurs Abdomen- normal bowel sounds, nondistended, soft, nontender, no masses or hepatosplenomegaly Extremities- no pretibial edema, no calf tenderness; peripheral pulses intact Neuro- alert, oriented x 3; CN 2-12 grossly intact; motor 5/5 bilaterally;sensation 100% on all extremities; no other gross focal neurologic deficits Skin- warm & dry Discharge Data Allergies Allergy/AdvReac Type Severity Reaction Status Date / Time aspirin AdvReac Intermediate HX Verified 08/22/18 12:13 BLEEDING ULCERS Consultations 08/24/18 16:31 Consult Case Management - Discharge Planning Routine 08/25/18 08:00 Consult Cardiology Routine Ordered Studies 08/24/18 17:43 CT angio chest PE protocol Urgent IMPRESSION: 1. There is no evidence of pulmonary embolus in the main, lobar, or segmental pulmonary arteries. 2. There is no airspace consolidation or pleural effusion. 3. Cardiomegaly. US venous doppler LE BI Urgent IMPRESSION: There is no sonographic evidence of deep venous thrombosis identified in the right or left lower extremity. Hospital Course (1) Palpitations: 1. Palpitations and shortness of breath -- likely from PVCs -- acute coronary syndrome ruled out troponins negative, EKG non ischemic -- [facility] [employer] Dr. Pace consulted s/p stress echo:negative for stress induced ischemia -- palpitations felt to be from PVCs betablocker not recommended secondary to 1st degree av block, magnesium once a day recommended -- ff up with Cardiology Clinic for Cardiac Monitoring placement 2. Elevated dimer -- 690 -- CTA chest No PE. Doppler LE: no DVT 3. History of hyperlipidemia. -- LDL 73 Gastroesophageal reflux disease. Continue Protonix. Hypertension, on lisinopril. History of breast cancer, status post left partial mastectomy in 1982. Disposition d/c home ff up with PCP in 3-5 days ff up with [facility] in 2 weeks Total Time Total Time Spent Total Time Spent (In Minutes): 30 minutes Discharge Plan Discharge Items Patient Disposition: Home - Self-Care Reason For Visit: arrhythmia Discharge Diagnosis: PALPITATIONS, LIKELY FROM PVC'S (PREMATURE VENTRICULAR CONTRACTION) Discharge Goals: Diagnostic testing and Therapeutic intervention Activity: As commented below Activity Comment: NO HEAVY EXERTION UNTIL RE-EVALUATED BY PRIMARY CARE PHYSICIAN Lifting: Wait until after follow-up appointment Exercise/Sports: Wait until after follow-up appointment Driving/Machine Use Comment: NO DRIVING UNTIL ALLOWED BY CHEMISTRY DEPARTMENT CHAIR Non-emergency contact: Primary Care Provider and [facility] Call non-emergency contact if: you have any medication questions, your symptoms worsen and you have a fever Follow-up/Referrals: Janell Cain MD [Primary Care Provider] - 08/31/18 2:05 pm Diet: Heart Healthy Add Provider Instructions: PLEASE FOLLOW UP WITH CHEMISTRY DEPARTMENT CHAIR DR. PACE IN 2 WEEKS FOR PLACEMENT OF CELL OPERATION SUPERVISOR. TEL . NO. CALL PRIMARY CARE PHYSICIAN OR RETURN TO THE ER IMMEDIATELY IF WITH WORSENING OF SYMPTOMS, DIZZINESS, LIGHTHEADEDNESS, WEAKNESS. ALWAYS STAY WELL HYDRATED. Prescriptions: New magnesium oxide 400 mg magnesium tablet 400 mg PO DAILY Qty: 30 RF: 2 Continued multivitamin Tablet 1 tab PO DAILY RF: 0 pantoprazole 40 mg tablet,delayed release (DR/EC) 40 mg PO DAILY RF: 0 pravastatin 20 mg tablet 20 mg PO DAILY RF: 0 glucosamine sulfate 1,000 mg Capsule 1,000 mg PO QAM RF: 0 Fiber Select Gummies 2-100 gram-mcg Tablet,Chewable 1 tab PO DAILY RF: 0 Caltrate 600 + D 600 mg (1,500 mg)-800 unit Tablet,Chewable 2 tab PO DAILY RF: 0 Cranberry Plus Vitamin C 140-100 mg Capsule 1 cap PO DAILY RF: 0 lisinopril 5 mg Tablet 5 mg PO DAILY RF: 0 Stand-Alone Forms: [facility] Discharge Orders: Discharge Order (Routine); Ordered 08/25/18 Ordered By: Bulmaro Kirk Admission Data Admit Date/Time: 08/24/18 16:31 Attending Provider: Wai Valencia Admit Provider: Wai Valencia Primary Care Provider: Janell Cain Other Providers: Pablo Pace ; Bulmaro Kirk Service: Telemetry Other Interventions: Discharge Summary Assessment (RN) Last Done: 08/25/18 15:44 DC Date/Time DO NOT enter until pt leaves facility: 08/25/18 15:52
--- NOTE | 2018-08-25 15:51 | Hospitalist Progress Note ---
Date of Service August 25, 2018 delayed entry date of service as noted above Assessment & Plan (1) Palpitations: ASSESSMENT AND PLAN: This is a 78-year-old female who presents with palpitations, shortness of breath going on for several days. 1. Palpitations and shortness of breath, going on for several days and also with lightheadedness on and off. -- acute coronary syndrome ruled out troponins negative, EKG non ischemic -- [employer] Dr. Pace consulted s/p stress echo:negative for stress induced ischemia -- palpitations felt to be from PVCs betablocker not recommended secondary to 1st degree av block, magnesium once a day recommended -- ff up with Cardiology Clinic for Cardiac Monitoring placement 2. Elevated dimer -- 690 -- CTA chest No PE. Doppler LE: no DVT 3. History of hyperlipidemia. -- LDL 73 Gastroesophageal reflux disease. Continue Protonix. Hypertension, on lisinopril. History of breast cancer, status post left partial mastectomy in 1982. Disposition d/c home ff up with PCP in 3-5 days ff up with [employer] in 2 weeks Subjective ff up for palpitations seen resting in bed, comfortable denies chest pain, palpitations, dyspnea, dizziness while admitted s/p stress test no other symptoms states she is ready and would like to be discharged Physical Exam Vital Signs (Past 24 Hours): Last Vital Signs Temp 36.7 C 08/25/18 15:44 Pulse 70 08/25/18 15:44 Resp 18 08/25/18 15:44 BP 117/75 08/25/18 15:44 Pulse Ox 96 08/25/18 15:44 Physical Exam: General- oriented x 3, not in distress, speaks in sentences with no effort or accessory muscle use Head- atraumatic Eyes- PERRL, EOMI, anicteric ENT- oropharynx clear Neck- supple, no JVD, no adenopathy, no thyromegaly; carotids +2/2, no bruits appreciated Lungs- clear to auscultation bilaterally, no rales/wheezes Heart- normal rate, regular rhythm; no murmurs Abdomen- normal bowel sounds, nondistended, soft, nontender, no masses or hepatosplenomegaly Extremities- no pretibial edema, no calf tenderness; peripheral pulses intact Neuro- alert, oriented x 3; CN 2-12 grossly intact; motor 5/5 bilaterally;sensation 100% on all extremities; no other gross focal neurologic deficits Skin- warm & dry
== END 2018-08-25 15:52 | disposition home or self-care (01) | DRG 310 ==
LOC: 2S

== ENCOUNTER 2023-11-09 19:13 | Inpatient (IN) ==
[2023-11-09 20:22] LABS: Basophils # (auto) 0.05 K/uL (0.00-0.20); Basophils % (auto) 0.6 %; Eosinophils # (auto) 0.13 K/uL (0.00-0.50); Eosinophils % (auto) 1.4 %; Hematocrit (blood only) 41.3 % (37.0-47.0); Hemoglobin 14.1 g/dl (12.0-16.0); Immature Granulocytes # (auto) 0.03 K/uL (0.01-0.20); Immature Granulocytes % (auto) 0.3 %; Lymphocytes # (auto) 1.48 K/uL (1.20-3.40); Lymphocytes % (auto) 16.4 %; Mean Corpuscular Hemoglobin 30.6 pg (25.0-34.0); Mean Corpuscular Hgb Conc 34.1 g/dL (32.0-36.0); Mean Corpuscular Volume 89.6 fL (80.0-100.0); Mean Platelet Volume 10.3 fL (9.4-12.4); Monocytes # (auto) 0.47 K/uL (0.11-0.59); Monocytes % (auto) 5.2 %; Neutrophils # (auto) 6.87 K/uL (1.40-6.50); Neutrophils % (auto) 76.1 %; Platelet Count 303 K/uL (130-400); RDW Coefficient of Variation 13.2 % (11.5-14.5); Red Blood Count 4.61 M/uL (4.20-5.40); White Blood Count 9.03 K/ul (4.8-10.8)
[2023-11-09 20:35] LABS: Albumin Globulin Ratio 1.5 (0.9-2); Albumin Level 4.5 gm/dl (3.4-5.0); BUN Creatinine Ratio 21.4 (10-20); Bilirubin,Total 0.6 mg/dl (0.2-1.0); Calcium 9.9 mg/dl (8.6-10.3); Creatinine Clr Calc Pharmacy 56.8 ml/min; Est GFR (African American) 92.9 ml/min; Est GFR (Non-African American) 80.1 ml/min; Globulin 3.1 gm/dl (2.5-4.0); Total Protein 7.6 gm/dl (6.0-8.3)
[2023-11-09 21:08] LABS: Appearance Urine Clear (Clear); Bacteria Urine Automated None Seen (None Seen); Bilirubin Urine Negative (Negative); Blood Urine Negative (Negative); Cast Urine Automated 0-2 /lpf (0-2); Color Urine Yellow; Glucose Urine UA Negative (Negative); Ketones Urine Negative (Negative); Leukocyte Esterase Urine 2+ (Negative); Nitrite Urine Negative (Negative); Protein Urine Negative (Negative); RBC Urine Automated 0-2 /hpf (0-2); Specific Gravity Urine 1.012 (1.000-1.030); Urobilinogen Urine Negative (Negative)
[2023-11-09] MEDS: OPTIRAY 320 100ml IV ONE (22:01)
--- NOTE | 2023-11-09 23:11 | CT Scan Report ---
Exam(s): CT ABDOMEN + PELVIS With Contrast IV Amt: 94 cc opti 320 EXAM: CT Abdomen and Pelvis With Intravenous Contrast CLINICAL HISTORY: Reason for exam: lower abd pain, hx of diverticulitis. TECHNIQUE: Axial computed tomography images of the abdomen and pelvis with intravenous contrast. CTDI is 26.19 mGy and DLP is 1141.36 mGy-cm. Automated exposure control was utilized for the study. A dose lowering technique was utilized adhering to the principles of ALARA. CONTRAST: Patient received 94 cc opti 320 of IV contrast COMPARISON: No relevant prior studies available. FINDINGS: Lung bases: Unremarkable. No mass. No consolidation. ABDOMEN: Liver: Unremarkable. No focal hepatic lesion. Gallbladder and bile ducts: Unremarkable. No calcified stones. No ductal dilation. Pancreas: Unremarkable. No mass. No ductal dilation. Spleen: Unremarkable. No splenomegaly. Adrenals: Unremarkable. No mass. Kidneys and ureters: Unremarkable. No solid mass. No hydronephrosis. Stomach and bowel: Dilated small bowel measuring up to 3.2 cm, consistent with small bowel obstruction. Likely from postoperative adhesions. Transition point likely in the pelvis. Diverticulosis, without acute diverticulitis. PELVIS: Appendix: No findings to suggest acute appendicitis. Bladder: Unremarkable. No mass. Reproductive: Prominent endometrial complex measuring up to 3.1 cm for the patient's age. Endometrial hyperplasia/cancer cannot be excluded. ABDOMEN and PELVIS: Intraperitoneal space: Unremarkable. No free air. No significant fluid collection. Bones/joints: Degenerative changes of the spine. No acute fracture. No dislocation. Soft tissues: Status post ventral abdominal wall hernia repair. Vasculature: Atherosclerotic changes of the aorta. No abdominal aortic aneurysm. Lymph nodes: Unremarkable. No enlarged lymph nodes. IMPRESSION: 1. Dilated small bowel measuring up to 3.2 cm, consistent with small bowel obstruction. Likely from postoperative adhesions. Transition point likely in the pelvis. 2. Prominent endometrial complex measuring up to 3.1 cm for the patient's age. Endometrial hyperplasia/cancer cannot be excluded. 3. Status post ventral abdominal wall hernia repair. Electronically signed by: Sudheer Rushing MD 11/09/23 23:10 PM
[2023-11-09] MEDS: SODIUM CHLORIDE 0.9% 1,000 ML IV SCH (23:27)
--- NOTE | 2023-11-09 23:39 | History & Physical Report ---
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 Surgery consult Re: SBO Urine CS, ceftriaxone DVT prophylaxis. Lovenox subcu Full code Patient requesting updates provider. Mr. Matti Cheung, contact #[phone]. Text document was generated using [employer] voice recognition software. It may contain grammatical or spelling errors. Kindly contact undersigned for clarification of any documentation item in question. ADDENDUM 11/09, 3AM Patient heart rate noted to be 30s around 2:30 AM as per RN. Second-degree AV block Mobitz type II on rhythm strip as per phototypesetting equipment monitor. Patient felt lightheaded during episode. SBP currently 140s, heart rate 60s AP Symptomatic bradycardia PCU transfer Hold beta-tali for now Pacer pads on Atropine as needed symptomatic bradycardia Cardiology consult Re: Symptomatic bradycardia, History of Present Illness Chief Complaint: Abdominal pain Primary Care Provider: Janell Cain MD History obtained from patient, family, and records. Medical history significant for valvular heart disease (mild MR/TR, TTE 2018), hypertension, hyperlipidemia, left breast cancer status post surgery/radiation/tamoxifen Rx, prediabetes, past tobacco abuse. Last confinement August 2018 for palpitations attributed to PVCs. This morning, patient noted achy lower abdominal discomfort reminiscent of diverticulitis attack. Some constipation. No nausea, no emesis. No fever, no chills. No headache, no chest pain, no SOB. Patient brought to ER by family. Initial SBP 200s. Medical History as above Patient home beta-tali increased in frequency last month following ER visit for uncontrolled BP, dizziness, SOB, palpitations. Outpatient Zio patch ordered by PCP last month showed Fifteen patient triggered events were submitted and two diary events were submitted. Symptoms correlated with sensed premature ventricular contractions and premature atrial contractions. The overall frequency of the premature ventricular contractions was moderate, accounting for 1% of the total QRS complexes. No symptoms were associated with relatively brief episodes of supraventricular tachycardia. Surgical History : Partial mastectomy left, hernia repair, breast biopsy, cataract surgeries Family History : Dementia, breast cancer, heart disease, stroke Personal/Social history : Past tobacco abuse, no EtOH intake, retired [employer] employee Allergies Allergy/AdvReac Type Severity Reaction Status Date / Time aspirin AdvReac Intermediate HX Verified 11/09/23 23:31 BLEEDING ULCERS Home Medications Medication Instructions Recorded Confirmed Type pantoprazole 40 mg tablet,delayed 40 mg PO QAM 08/22/18 11/10/23 History release pravastatin 20 mg tablet 20 mg PO DAILY 08/22/18 11/10/23 History lisinopril 5 mg tablet 5 mg PO QAM 08/24/18 11/10/23 History hydrochlorothiazide 25 mg tablet 25 mg PO 2XWK 11/09/23 11/10/23 History metoprolol succinate 25 mg 12.5 mg PO AMHS 11/09/23 11/10/23 History tablet,extended release 24 hr B.animalis-B.bifidum-B.infantis-B.longum 1 tab PO QAM 11/10/23 11/10/23 History 10 mg-15 mg tablet,delay rel Turmeric Curcumin 5-1000mg 1,000 mg PO DAILY 11/10/23 11/10/23 History apple cider vinegar 300 mg tablet 300 mg PO DAILY 11/10/23 11/10/23 History calcium carbonate 600 mg-vitamin 2 tab PO DAILY 11/10/23 11/10/23 History D3 5 mcg (200 unit) tablet (Calcium 600 + D(3)) cholecalciferol (vitamin D3) 50 50 mcg PO DAILY 11/10/23 11/10/23 History mcg (2,000 unit) tablet (Vitamin D3) cranberry extract 500 mg capsule 1,000 mg PO DAILY 11/10/23 11/10/23 History denosumab 60 mg/mL subcutaneous 60 mg subcut .EVERY 6 MONTHS 11/10/23 11/10/23 History syringe (Prolia) glucosamine-chondroitin 250 mg-200 2 tab PO DAILY 11/10/23 11/10/23 History mg tablet (Osteo Bi-Flex) magnesium 250 mg tablet 250 mg PO QAM 11/10/23 11/10/23 History multivitamin with minerals 2 tab PO DAILY 11/10/23 11/10/23 History (Hair,Skin and Nails tablet) nutritional supplement-fiber oral 2 ea PO DAILY 11/10/23 11/10/23 History liquid Past Med/Surg History Problem List (Updated 11/10/23 @ 01:57 by Thaddeus Ferreira MD) Asymptomatic hypertensive urgency SBO (small bowel obstruction) (Acute) Palpitations HLD (hyperlipidemia) (Chronic) Senile osteoporosis (Chronic) History of breast cancer (Chronic) Peptic ulcer disease (Chronic) Diverticulosis (Chronic) History of partial mastectomy of left breast (Chronic) History of hernia repair (Chronic) History of colonoscopy with polypectomy (Chronic) History of esophagogastroduodenoscopy (EGD) (Chronic) HTN (hypertension) (Chronic) Medical History No significant family history Anemia HTN (hypertension) Surgical History No significant past surgical history Social History Smoking Status: Never smoker Second Hand Exposure: No; Do You Dip or Chew Tobacco: No; Hx Alcohol Use: No Hx Substance Use: No Preferred Language: Cameroonian Communication Ability: Effective Back Closer Required: No Beliefs That Will Affect Care: None Current Living Situation: Spouse Feels Safe at Home: Yes Assistive Devices: None Review of Systems Review of Systems: As per HPI, all other systems reviewed and negative Physical Exam Physical Exam: GENERAL: Slightly uncomfortable, obese, pleasant, no respiratory distress SKIN: Normal color, warm HEENT: [place] palpebral conjunctivae, no ptosis, dry buccal mucosa NECK : Supple, short neck, no tenderness CHEST : CTA, no tenderness HEART : RRR, no obvious murmurs ABDOMEN: distention, hypogastric tenderness EXTREMITIES : Minimal LE swelling, no LE tenderness, no other conspicuous deformities noted NEUROLOGIC : Coherent, no facial asymmetry, no other gross focality Results & Data Results & Data Vital Signs (Past 12 Hours) Vital Signs Temp Pulse Pulse Resp BP BP Pulse Ox 11/09/23 22:30 82 22 95 11/09/23 22:20 83 19 172/81 H 97 11/09/23 22:07 87 21 97 11/09/23 21:31 72 14 179/89 H 96 11/09/23 21:00 69 17 96 11/09/23 20:30 68 15 97 11/09/23 20:25 73 20 96 11/09/23 20:25 73 20 204/99 H 96 11/09/23 20:14 76 20 95 11/09/23 20:14 76 11/09/23 19:17 36.6 C 85 18 173/113 H 95 O2 Del Method 11/09/23 22:30 Room Air 11/09/23 22:20 Room Air 11/09/23 22:07 Room Air 11/09/23 21:31 Room Air 11/09/23 21:00 Room Air 11/09/23 20:30 Room Air 11/09/23 20:25 Room Air 11/09/23 20:25 Room Air 11/09/23 20:14 Room Air 11/09/23 20:14 11/09/23 19:17 Room Air Laboratory Results Laboratory Results WBC 9.03 K/ul (4.8-10.8) 11/09/23 19:45 RBC 4.61 M/uL (4.20-5.40) 11/09/23 19:45 Hgb 14.1 g/dl (12.0-16.0) 11/09/23 19:45 Hct 41.3 % (37.0-47.0) 11/09/23 19:45 MCV 89.6 fL (80.0-100.0) 11/09/23 19:45 MCH 30.6 pg (25.0-34.0) 11/09/23 19:45 MCHC 34.1 g/dL (32.0-36.0) 11/09/23 19:45 RDW Std Deviation 43.0 fL (36.4-46.3) 11/09/23 19:45 RDW Coeff of Prachi 13.2 % (11.5-14.5) 11/09/23 19:45 Plt Count 303 K/uL (130-400) 11/09/23 19:45 MPV 10.3 fL (9.4-12.4) 11/09/23 19:45 Immature Gran % (Auto) 0.3 % 11/09/23 19:45 Neut % (Auto) 76.1 % 11/09/23 19:45 Lymph % (Auto) 16.4 % 11/09/23 19:45 [place] % (Auto) 5.2 % 11/09/23 19:45 Eos % (Auto) 1.4 % 11/09/23 19:45 Baso % (Auto) 0.6 % 11/09/23 19:45 Neut # (Auto) 6.87 K/uL (1.40-6.50) H 11/09/23 19:45 Lymph # (Auto) 1.48 K/uL (1.20-3.40) 11/09/23 19:45 [place] # (Auto) 0.47 K/uL (0.11-0.59) 11/09/23 19:45 Eos # (Auto) 0.13 K/uL (0.00-0.50) 11/09/23 19:45 Baso # (Auto) 0.05 K/uL (0.00-0.20) 11/09/23 19:45 Immature Gran # (Auto) 0.03 K/uL (0.01-0.20) 11/09/23 19:45 Sodium 138 mmol/L (136-145) 11/09/23 19:45 Potassium 4.0 mmol/L (3.5-5.1) 11/09/23 19:45 Chloride 105 mmol/L (98-107) 11/09/23 19:45 Carbon Dioxide 27 mmol/L (21-32) 11/09/23 19:45 Anion Gap 6 (3-11) 11/09/23 19:45 BUN 15 mg/dl (6-23) 11/09/23 19:45 Creatinine 0.70 mg/dl (0.6-1.2) 11/09/23 19:45 Est Cr Clr Drug Dosing 56.8 ml/min 11/09/23 19:45 Est GFR ( Amer) 92.9 ml/min 11/09/23 19:45 Est GFR (Non-Af Amer) 80.1 ml/min 11/09/23 19:45 BUN/Creatinine Ratio 21.4 (10-20) H 11/09/23 19:45 Glucose 111 mg/dl (70-99(Fasting)) H 11/09/23 19:45 Calcium 9.9 mg/dl (8.6-10.3) 11/09/23 19:45 Total Bilirubin 0.6 mg/dl (0.2-1.0) 11/09/23 19:45 AST 22 U/L (13-39) 11/09/23 19:45 ALT 17 U/L (7-52) 11/09/23 19:45 Alkaline Phosphatase 49 U/L (34-104) 11/09/23 19:45 Total Protein 7.6 gm/dl (6.0-8.3) 11/09/23 19:45 Albumin 4.5 gm/dl (3.4-5.0) 11/09/23 19:45 Globulin 3.1 gm/dl (2.5-4.0) 11/09/23 19:45 Albumin/Globulin Ratio 1.5 (0.9-2) 11/09/23 19:45 Lipase 20 U/L (11-82) 11/09/23 19:45 Urine Color Yellow 11/09/23 Unknown Urine Appearance Clear (Clear) 11/09/23 Unknown Urine pH 6.0 (4.5-7.5) 11/09/23 Unknown Ur Specific [place] 1.012 (1.000-1.030) 11/09/23 Unknown Urine Protein Negative (Negative) 11/09/23 Unknown Urine Glucose (UA) Negative (Negative) 11/09/23 Unknown Urine Ketones Negative (Negative) 11/09/23 Unknown Urine Blood Negative (Negative) 11/09/23 Unknown Urine Nitrite Negative (Negative) 11/09/23 Unknown Urine Bilirubin Negative (Negative) 11/09/23 Unknown Urine Urobilinogen Negative (Negative) 11/09/23 Unknown Ur Leukocyte Esterase 2+ (Negative) H 11/09/23 Unknown Urine WBC (Auto) 6-10 /hpf (0-5) H 11/09/23 Unknown Urine RBC (Auto) 0-2 /hpf (0-2) 11/09/23 Unknown U Hyaline Cast (Auto) 0-2 /lpf (0-2) 11/09/23 Unknown U Epithel Cells (Auto) 3-5 /hpf (0-2) H 11/09/23 Unknown Urine Bacteria (Auto) None Seen (None Seen) 11/09/23 Unknown Impressions Abdomen/Pelvis CT 11/09/23 19:47 Exam(s): CT ABDOMEN + PELVIS With Contrast IV Amt: 94 cc opti 320 EXAM: CT Abdomen and Pelvis With Intravenous Contrast CLINICAL HISTORY: Reason for exam: lower abd pain, hx of diverticulitis. TECHNIQUE: Axial computed tomography images of the abdomen and pelvis with intravenous contrast. CTDI is 26.19 mGy and DLP is 1141.36 mGy-cm. Automated exposure control was utilized for the study. A dose lowering technique was utilized adhering to the principles of ALARA. CONTRAST: Patient received 94 cc opti 320 of IV contrast COMPARISON: No relevant prior studies available. FINDINGS: Lung bases: Unremarkable. No mass. No consolidation. ABDOMEN: Liver: Unremarkable. No focal hepatic lesion. Gallbladder and bile ducts: Unremarkable. No calcified stones. No ductal dilation. Pancreas: Unremarkable. No mass. No ductal dilation. Spleen: Unremarkable. No splenomegaly. Adrenals: Unremarkable. No mass. Kidneys and ureters: Unremarkable. No solid mass. No hydronephrosis. Stomach and bowel: Dilated small bowel measuring up to 3.2 cm, consistent with small bowel obstruction. Likely from postoperative adhesions. Transition point likely in the pelvis. Diverticulosis, without acute diverticulitis. PELVIS: Appendix: No findings to suggest acute appendicitis. Bladder: Unremarkable. No mass. Reproductive: Prominent endometrial complex measuring up to 3.1 cm for the patient's age. Endometrial hyperplasia/cancer cannot be excluded. ABDOMEN and PELVIS: Intraperitoneal space: Unremarkable. No free air. No significant fluid collection. Bones/joints: Degenerative changes of the spine. No acute fracture. No dislocation. Soft tissues: Status post ventral abdominal wall hernia repair. Vasculature: Atherosclerotic changes of the aorta. No abdominal aortic aneurysm. Lymph nodes: Unremarkable. No enlarged lymph nodes. IMPRESSION: 1. Dilated small bowel measuring up to 3.2 cm, consistent with small bowel obstruction. Likely from postoperative adhesions. Transition point likely in the pelvis. 2. Prominent endometrial complex measuring up to 3.1 cm for the patient's age. Endometrial hyperplasia/cancer cannot be excluded. 3. Status post ventral abdominal wall hernia repair. Electronically signed by: Sudheer Rushing MD 11/09/23 23:10 PM Diagnostic Findings EKG as per my interpretation : Rate 75, LAD, LAFB, 1 AVB, anterolateral and inferior infarcts, T wave abnormalities inferior leads
--- NOTE | 2023-11-10 00:16 | Emergency Department Note ---
History of Present Illness General Chief Complaint: GI Assessment Stated Complaint: DIVERTICULITIS, BACK PAIN, GAS/BLOATING Time Seen by Provider: 11/09/23 19:59 History of Present Illness Provider Complaint: abdominal pain Onset (ago): 7 hour(s) Pain Consistency: intermittent Location: LLQ Migration to: LUQ Severity: moderate Maximum Pain Intensity: 6 Current Pain Intensity: 6 Quality: + cramping, + stabbing, + aching, + sharp and + dull Relieved By: + nothing Exacerbated By: + nothing Context: + history of similar episodes (Feels like previous diverticulitis); no foreign travel, no possible food poisoning, no sick contacts, no recent antibiotic use, no recent surgery/procedure or no recent injury Associated Symptoms: no nausea, no vomiting, no diarrhea, no fever, no chills, no constipation, no dysuria, no hematemesis, no melena, no hematuria and no syncope Home Medications Medication Instructions Recorded Confirmed Type pantoprazole 40 mg tablet,delayed 40 mg PO QAM 08/22/18 11/10/23 History release pravastatin 20 mg tablet 20 mg PO DAILY 08/22/18 11/10/23 History lisinopril 5 mg tablet 5 mg PO QAM 08/24/18 11/10/23 History hydrochlorothiazide 25 mg tablet 25 mg PO 2XWK 11/09/23 11/10/23 History metoprolol succinate 25 mg 12.5 mg PO AMHS 11/09/23 11/10/23 History tablet,extended release 24 hr Allergies Allergy/AdvReac Type Severity Reaction Status Date / Time aspirin AdvReac Intermediate HX Verified 11/09/23 23:31 BLEEDING ULCERS Past Med/Surg History Problem List (Updated 11/10/23 @ 00:24 by Cortes Marcos MD) SBO (small bowel obstruction) (Acute) Palpitations HLD (hyperlipidemia) (Chronic) Senile osteoporosis (Chronic) History of breast cancer (Chronic) Peptic ulcer disease (Chronic) Diverticulosis (Chronic) History of partial mastectomy of left breast (Chronic) History of hernia repair (Chronic) History of colonoscopy with polypectomy (Chronic) History of esophagogastroduodenoscopy (EGD) (Chronic) HTN (hypertension) (Chronic) Medical History No significant family history Anemia HTN (hypertension) Surgical History No significant past surgical history Social History Smoking Status: Never smoker Second Hand Exposure: No; Do You Dip or Chew Tobacco: No; Hx Alcohol Use: No Hx Substance Use: No Preferred Language: Frisian Communication Ability: Effective Preschool Program Director Required: No Beliefs That Will Affect Care: None Current Living Situation: Spouse Feels Safe at Home: Yes Assistive Devices: None Physical Exam 2 Vital Signs: Vital Signs - 24 hr 11/09/23 19:17 11/09/23 20:14 11/09/23 20:14 Temperature 36.6 C Temperature Source Temporal Artery Sc an Pulse Rate 85 76 76 Pulse Rate [Apical ] Pulse Rate from Sp O2 Sensor 75 Pulse Rhythm Pulse Rhythm [Apic al] Respiratory Rate 18 20 Respiratory Effort / Characteristics Non-Labored Respiratory Depth Normal Respiratory Patter n Blood Pressure 173/113 H Blood Pressure [Le ft Arm] Blood Pressure [place] 133 Blood Pressure [place] [Left Arm] Pulse Oximetry 95 95 Oxygen Delivery Me thod Room Air Room Air Sepsis Recent Feve r Within 48 Hours No Sepsis New/Unexpla ined Change in Men conrad Status No Sepsis Action Take n by Nursing No Action Required 11/09/23 20:25 11/09/23 20:25 11/09/23 20:30 Temperature Temperature Source Pulse Rate 73 68 Pulse Rate [Apical ] 73 Pulse Rate from Sp O2 Sensor 68 Pulse Rhythm Regular Pulse Rhythm [Apic al] Regular Respiratory Rate 20 20 15 Respiratory Effort / Characteristics Non-Labored Sponta neous Respiratory Depth Normal Respiratory Patter n Regular Blood Pressure Blood Pressure [Le ft Arm] 204/99 H Blood Pressure [place] Blood Pressure [place] [Left Arm] 134 Pulse Oximetry 96 96 97 Oxygen Delivery Me thod Room Air Room Air Room Air Sepsis Recent Feve r Within 48 Hours Sepsis New/Unexpla ined Change in Men conrad Status Sepsis Action Take n by Nursing 11/09/23 21:00 11/09/23 21:31 11/09/23 22:07 Temperature Temperature Source Pulse Rate 69 72 87 Pulse Rate [Apical ] Pulse Rate from Sp O2 Sensor 69 72 Pulse Rhythm Pulse Rhythm [Apic al] Respiratory Rate 17 14 21 Respiratory Effort / Characteristics Respiratory Depth Respiratory Patter n Blood Pressure 179/89 H Blood Pressure [Le ft Arm] Blood Pressure [place] 119 Blood Pressure [place] [Left Arm] Pulse Oximetry 96 96 97 Oxygen Delivery Me thod Room Air Room Air Room Air Sepsis Recent Feve r Within 48 Hours Sepsis New/Unexpla ined Change in Men conrad Status Sepsis Action Take n by Nursing 11/09/23 22:20 11/09/23 22:30 Temperature Temperature Source Pulse Rate 83 82 Pulse Rate [Apical ] Pulse Rate from Sp O2 Sensor 83 82 Pulse Rhythm Pulse Rhythm [Apic al] Respiratory Rate 19 22 Respiratory Effort / Characteristics Respiratory Depth Respiratory Patter n Blood Pressure 172/81 H Blood Pressure [Le ft Arm] Blood Pressure [place] 111 Blood Pressure [place] n [Left Arm] Pulse Oximetry 97 95 Oxygen Delivery Me thod Room Air Room Air Sepsis Recent Feve r Within 48 Hours Sepsis New/Unexpla ined Change in Men conrad Status Sepsis Action Take n by Nursing Physical Exam: Physical Exam GENERAL: She is oriented to person, place, and time. She appears well-developed and well-nourished. She does not appear distressed. HENT: Exam performed. -Head: Normocephalic and atraumatic. -Right Ear: External ear normal. No mastoid erythema -Left Ear: External ear normal. No mastoid erythema -Mouth/Throat: The oropharynx is clear and moist. No trismus in the jaw. No dental abscesses or uvula swelling. No oropharyngeal exudate or tonsillar abscesses. EYES: Conjunctivae and EOM are normal.Right eye exhibits no discharge. Left eye exhibits no discharge. No scleral icterus. NECK: Normal range of motion. Neck supple. No JVD present. No tracheal deviation and normal range of motion present. CV: Normal rate, regular rhythm, normal heart sounds and intact distal pulses. There is no peripheral edema. Palpable radial pulses bue. PULM/CHEST: Effort normal and breath sounds normal. No respiratory distress. No stridor. She has no wheezes. She has no rales. -Chest Wall: She exhibits no tenderness. ABD: The abdomen is soft. Bowel sounds are normal. She has no distension. No mass is present. There is tenderness to palpation of the left lower quadrant and left upper quadrant. There is no rebound, no guarding, no Barnett's sign and no tenderness at McBurney's point. Rovsig negative MUSC/SKEL: Normal range of motion. There is no peripheral edema, tenderness or deformity. NEURO: Motor and sensation grossly intact. SKIN: Skin is warm and dry. She is not diaphoretic. PSYCH: She has a normal mood and affect. Behavior is normal. Judgment and thought content normal. Course Course 1958: The patient was evaluated in room B8. A complete history and physical exam was performed Cardiac monitoring: An order was placed for continuous cardiac monitoring. The monitor shows a rate of 80 with sinus rhythm interpreted by de 2315: Vital signs stable. Labs within normal limits. Imaging shows SBO. [facility] on [facility]. Administered Medications Sodium Chloride (Nss) 1,000 mls @ 60 mls/hr IV .[id number] GABY Stop: 12/09/23 23:14 Last Admin: 11/09/23 23:27 Dose: 80 mls/hr Documented By: GLADYS Discontinued Medications Ioversol (Optiray 320 100ml) 94 ml IV ONCE ONE Stop: 11/09/23 22:01 Last Admin: 11/09/23 22:01 Dose: 94 ml Documented By: BRYSON Medical Decision Making Laboratory Data Attestation: I reviewed the patient's lab results. 11/09/23 19:45 11/09/23 19:45 Lab Results 11/09/23 11/09/23 Range/Units 19:45 Unknown WBC 9.03 (4.8-10.8) K/ul RBC 4.61 (4.20-5.40) M/uL Hgb 14.1 (12.0-16.0) g/dl Hct 41.3 (37.0-47.0) % MCV 89.6 (80.0-100.0) fL MCH 30.6 (25.0-34.0) pg MCHC 34.1 (32.0-36.0) g/dL RDW Std Deviation 43.0 (36.4-46.3) fL RDW Coeff of Prachi 13.2 (11.5-14.5) % Plt Count 303 (130-400) K/uL MPV 10.3 (9.4-12.4) fL Immature Gran % (Auto) 0.3 % Neut % (Auto) 76.1 % Lymph % (Auto) 16.4 % [place] % (Auto) 5.2 % Eos % (Auto) 1.4 % Baso % (Auto) 0.6 % Neut # (Auto) 6.87 H (1.40-6.50) K/uL Lymph # (Auto) 1.48 (1.20-3.40) K/uL [place] # (Auto) 0.47 (0.11-0.59) K/uL Eos # (Auto) 0.13 (0.00-0.50) K/uL Baso # (Auto) 0.05 (0.00-0.20) K/uL Immature Gran # (Auto) 0.03 (0.01-0.20) K/uL Sodium 138 (136-145) mmol/L Potassium 4.0 (3.5-5.1) mmol/L Chloride 105 (98-107) mmol/L Carbon Dioxide 27 (21-32) mmol/L Anion Gap 6 (3-11) BUN 15 (6-23) mg/dl Creatinine 0.70 (0.6-1.2) mg/dl Est Cr Clr Drug Dosing 56.8 ml/min Est GFR ( Amer) 92.9 ml/min Est GFR (Non-Af Amer) 80.1 ml/min BUN/Creatinine Ratio 21.4 H (10-20) Glucose 111 H (70-99(Fasting)) mg/dl Calcium 9.9 (8.6-10.3) mg/dl Total Bilirubin 0.6 (0.2-1.0) mg/dl AST 22 (13-39) U/L ALT 17 (7-52) U/L Alkaline Phosphatase 49 (34-104) U/L Total Protein 7.6 (6.0-8.3) gm/dl Albumin 4.5 (3.4-5.0) gm/dl Globulin 3.1 (2.5-4.0) gm/dl Albumin/Globulin Ratio 1.5 (0.9-2) Lipase 20 (11-82) U/L Urine Color Yellow Urine Appearance Clear (Clear) Urine pH 6.0 (4.5-7.5) Ur Specific [place] 1.012 (1.000-1.030) Urine Protein Negative (Negative) Urine Glucose (UA) Negative (Negative) Urine Ketones Negative (Negative) Urine Blood Negative (Negative) Urine Nitrite Negative (Negative) Urine Bilirubin Negative (Negative) Urine Urobilinogen Negative (Negative) Ur Leukocyte Esterase 2+ H (Negative) Urine WBC (Auto) 6-10 H (0-5) /hpf Urine RBC (Auto) 0-2 (0-2) /hpf U Hyaline Cast (Auto) 0-2 (0-2) /lpf U Epithel Cells (Auto) 3-5 H (0-2) /hpf Urine Bacteria (Auto) None Seen (None Seen) Imaging Data Radiologist's Impression: Abdomen/Pelvis CT 11/09/23 19:47 Exam(s): CT ABDOMEN + PELVIS With Contrast IV Amt: 94 cc opti 320 EXAM: CT Abdomen and Pelvis With Intravenous Contrast CLINICAL HISTORY: Reason for exam: lower abd pain, hx of diverticulitis. TECHNIQUE: Axial computed tomography images of the abdomen and pelvis with intravenous contrast. CTDI is 26.19 mGy and DLP is 1141.36 mGy-cm. Automated exposure control was utilized for the study. A dose lowering technique was utilized adhering to the principles of ALARA. CONTRAST: Patient received 94 cc opti 320 of IV contrast COMPARISON: No relevant prior studies available. FINDINGS: Lung bases: Unremarkable. No mass. No consolidation. ABDOMEN: Liver: Unremarkable. No focal hepatic lesion. Gallbladder and bile ducts: Unremarkable. No calcified stones. No ductal dilation. Pancreas: Unremarkable. No mass. No ductal dilation. Spleen: Unremarkable. No splenomegaly. Adrenals: Unremarkable. No mass. Kidneys and ureters: Unremarkable. No solid mass. No hydronephrosis. Stomach and bowel: Dilated small bowel measuring up to 3.2 cm, consistent with small bowel obstruction. Likely from postoperative adhesions. Transition point likely in the pelvis. Diverticulosis, without acute diverticulitis. PELVIS: Appendix: No findings to suggest acute appendicitis. Bladder: Unremarkable. No mass. Reproductive: Prominent endometrial complex measuring up to 3.1 cm for the patient's age. Endometrial hyperplasia/cancer cannot be excluded. ABDOMEN and PELVIS: Intraperitoneal space: Unremarkable. No free air. No significant fluid collection. Bones/joints: Degenerative changes of the spine. No acute fracture. No dislocation. Soft tissues: Status post ventral abdominal wall hernia repair. Vasculature: Atherosclerotic changes of the aorta. No abdominal aortic aneurysm. Lymph nodes: Unremarkable. No enlarged lymph nodes. IMPRESSION: 1. Dilated small bowel measuring up to 3.2 cm, consistent with small bowel obstruction. Likely from postoperative adhesions. Transition point likely in the pelvis. 2. Prominent endometrial complex measuring up to 3.1 cm for the patient's age. Endometrial hyperplasia/cancer cannot be excluded. 3. Status post ventral abdominal wall hernia repair. Electronically signed by: Sudheer Rushing MD 11/09/23 23:10 PM [facility] Narrative 195: The patient was evaluated in room B8. A complete history and physical exam was performed Cardiac monitoring: An order was placed for continuous cardiac monitoring. The monitor shows a rate of 80 with sinus rhythm interpreted by de 2315: Vital signs stable. Labs within normal limits. Imaging shows SBO. [facility] on consult. Impression & Plan SBO (small bowel obstruction) Discharge Plan Visit Data Chief Complaint: GI Assessment Stated Complaint: DIVERTICULITIS, BACK PAIN, GAS/BLOATING ED Provider: Cortes Marcos Discharge Problem: SBO (small bowel obstruction) Patient Disposition: Admitted As Inpatient Forms Stand Alone Forms: [facility] Prescriptions Prescriptions: No Action pantoprazole 40 mg tablet,delayed release (DR/EC) 40 mg PO QAM pravastatin 20 mg tablet 20 mg PO DAILY lisinopril 5 mg Tablet 5 mg PO QAM metoprolol succinate 25 mg tablet extended release 24 hr 12.5 mg PO AMHS hydrochlorothiazide 25 mg tablet 25 mg PO 2XWK Rx Instructions: may take as needed for edema Referrals Referrals: Janell Cain MD [Primary Care Provider] -
[2023-11-10] MEDS ORDERED: PROMETHAZINE HCL 6.25 MG in SODIUM CHLORIDE 0.9% 50 ML IV PRN (00:22)
[2023-11-10] MEDS ORDERED: MoRPHine SULFATE 2 MG/ML CARP IV PRN (00:22)
[2023-11-10] MEDS: ACETAMINOPHEN 1,000 MG/100 ML VIAL IV STA (00:59)
[2023-11-10] MEDS: METOPROLOL TARTRATE 1 MG/ML VIAL IV STA (00:59)
[2023-11-10] MEDS: bisacodyL 10 MG SUPP PR STA (00:59)
[2023-11-10] MEDS: cefTRIAXone SODIUM 2,000 MG/50 ML BAG IV STA (01:51)
[2023-11-10] MEDS ORDERED: ATROPINE SULFATE 0.1 MG/ML 10ML SYR IV PRN (03:06)
[2023-11-10 05:14] LABS: Thyroid Stimulating Hormone 2.686 uIu/ml (0.300-4.500)
--- NOTE | 2023-11-10 07:54 | Electrocardiogram Report ---
Test Reason : Blood Pressure : / mmHG Vent. 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
[2023-11-10] MEDS: ENOXAPARIN INJ 40 MG/0.4 ML SYR SQ SCH (08:14)
[2023-11-10] MEDS: PANTOprazole 40 MG TAB PO SCH (08:15)
[2023-11-10] MEDS: lisinopril 5 MG TAB PO SCH (08:15)
[2023-11-10] MEDS: PRAVASTATIN SOD 20 MG TAB PO SCH (08:16)
--- NOTE | 2023-11-10 08:25 | Cardiology Consultation ---
Date of Consultation November 10, 2023 Assessment & Plan (1) SBO (small bowel obstruction): (2) Asymptomatic hypertensive urgency: (3) Premature ventricular contraction: Plan Patient admitted for abdominal pain and diagnosed with small bowel obstruction. Hypertensive on arrival to ER. Strong situational component and underlying discomfort contributing. Treated with IV Lopressor overnight for HTN urgency and there was concern regarding episode of transient bradycardia on security monitor. After further review, these strips are consistent with NSR with 1st degree AV block and PVC's in the form of bigeminy. The PVC's were not being conducted and counted by the security monitor. There was no evidence of significant bradycardia or high degree AV block. Home dose metoprolol succinate 12.5 mg BID was held/discontinued. She had recent outpatient ZIO without bradyarrhythmias and rare PVC's. Recommend resuming metoprolol succinate 12.5 mg BID at this time. Acceptable to titrate lisinopril as needed for BP support. Surgery has been consulted for SBO obstruction. Will proceed with updated echo for further potential preop risk stratification given HTN, PVC's and outpatient echo pending. Acceptable to remove pacer pads at this time. Case discussed with Dr. Pace I spent a total of 60 minutes on the date of service in preparation, delivery, and documentation of the care provided to this patient, excluding any time spent in the performance of separately billed services. Meenakshi Doshi PA-C Department of Cardiology, [facility] This chart was completed in part utilizing Speech Voice Recognition Software. Grammatical errors, random word insertions, pronoun errors, and incomplete sentences are an occasional consequence of this system due to software limitations, ambient noise, and hardware issues. Any formal questions or concerns about the content, text, or information contained within the body of this dictation should be directly addressed to the provider for clarification. Supervising Physician Co-Signing Physician Notes Patient was seen and personally examined. Full assessment and plan as outlined by advanced provider as above. Care and management discussed and personally endorsed 83-year-old female presented with abdominal pain and discomfort evidence of partial small bowel obstruction. While on telemetry was noted to have transient bigeminy with artifactual lowering of heart rate on the monitor (ventricular ectopy not detected) No pauses or bradycardia arrhythmias As above beta-tali resumed for chronic ventricular ectopy suppression Echocardiogram to be completed this hospitalization Will follow as clinical course progresses I spent a total of 25 minutes on the date of service in preparation, delivery, and documentation of the care provided to this patient, excluding any time spent in the performance of separately billed services. This chart was completed in part utilizing Speech Voice Recognition Software. Grammatical errors, random word insertions, pronoun errors, and incomplete sentences are an occasional consequence of this system due to software limitations, ambient noise, and hardware issues. Any formal questions or concerns about the content, text, or information contained within the body of this dictation should be directly addressed to the provider for clarification. History of Present Illness Reason for Consultation: Bradycardia Requesting Physician: Dr. Cancion Attending Physician: Mundo Cancino MD History of Present Illness Patient is a 83 year old female who was admitted to [facility] with abdominal pain. Diagnosed with SBO. Upon admission found to have hypertensive urgency and possible transient bradycardia noted on telemetry. Cardiology was consulted. Known to [facility], Dr. Pace. History includes: 1. Hypertension 2. PVC's 3. Dyslipidemia Several months ago, patient was in to see PCP due to dizziness and SOB. Her BP was high and metoprolol was increased. She was scheduled for an echo and ZIO monitor. Echo not yet done as an outpatient. ZIO monitor in September 2023 demonstrated NSR with occ PVC and non sustained runs of SVT. No bradyarrhythmias. Echo was not yet done. Patient reported interval improvement in her dizziness and BP with metoprolol adjustment to 12.5 mg BID. Patient reports she has been in normal state of health until yesterday morning when she developed lower abdominal discomfort. She felt she had recurrent diverticulitis. She presented to the ER. Systolic blood pressure was elevated. CT scan revealed possible SBO. Also possible 3.1 cm endometrial mass. To treat systolic BP, she was treated with IV Lopressor. There was concerns where she developed transient bradycardia after this initiation. Strips reviewed personally demonstrated NSR with long 1st degree AV block and PVC's in pattern of ventricular bigeminy. NO significant bradycardia or high degree AV block noted. Patient reports she was asymptomatic and unaware of anything wrong until everyone rushed into her room. This morning, patient resting in bed. Abdominal pain persists, but improved from admission. Small BM noted this morning per patient. No nausea or vomiting. Surgery has been consulted. Currently patient denies chest pain, dyspnea, palpitations, dizziness. Allergies Allergy/AdvReac Type Severity Reaction Status Date / Time aspirin AdvReac Intermediate HX Verified 11/09/23 23:31 BLEEDING ULCERS Home Medications Medication Instructions Recorded Confirmed Type pantoprazole 40 mg tablet,delayed 40 mg PO QAM 08/22/18 11/10/23 History release pravastatin 20 mg tablet 20 mg PO DAILY 08/22/18 11/10/23 History lisinopril 5 mg tablet 5 mg PO QAM 08/24/18 11/10/23 History hydrochlorothiazide 25 mg tablet 25 mg PO 2XWK 11/09/23 11/10/23 History metoprolol succinate 25 mg 12.5 mg PO AMHS 11/09/23 11/10/23 History tablet,extended release 24 hr B.animalis-B.bifidum-B.infantis-B.longum 1 tab PO QAM 11/10/23 11/10/23 History 10 mg-15 mg tablet,delay rel Turmeric Curcumin 5-1000mg 1,000 mg PO DAILY 11/10/23 11/10/23 History apple cider vinegar 300 mg tablet 300 mg PO DAILY 11/10/23 11/10/23 History calcium carbonate 600 mg-vitamin 2 tab PO DAILY 11/10/23 11/10/23 History D3 5 mcg (200 unit) tablet (Calcium 600 + D(3)) cholecalciferol (vitamin D3) 50 50 mcg PO DAILY 11/10/23 11/10/23 History mcg (2,000 unit) tablet (Vitamin D3) cranberry extract 500 mg capsule 1,000 mg PO DAILY 11/10/23 11/10/23 History denosumab 60 mg/mL subcutaneous 60 mg subcut .EVERY 6 MONTHS 11/10/23 11/10/23 History syringe (Prolia) glucosamine-chondroitin 250 mg-200 2 tab PO DAILY 11/10/23 11/10/23 History mg tablet (Osteo Bi-Flex) magnesium 250 mg tablet 250 mg PO QAM 11/10/23 11/10/23 History multivitamin with minerals 2 tab PO DAILY 11/10/23 11/10/23 History (Hair,Skin and Nails tablet) nutritional supplement-fiber oral 2 ea PO DAILY 11/10/23 11/10/23 History liquid Patient History Medical History No significant family history Anemia HTN (hypertension) Surgical History No significant past surgical history Social History Smoking Status: Never smoker Second Hand Exposure: No; Do You Dip or Chew Tobacco: No; Hx Alcohol Use: No Hx Substance Use: No Preferred Language: Icelandic Communication Ability: Effective Video Manager Required: No Beliefs That Will Affect Care: None Current Living Situation: Spouse Feels Safe at Home: Yes Assistive Devices: None Review of Systems Review of Systems: All systems reviewed & are unremarkable except as noted in HPI & below Physical Exam Constitutional: well developed; no acute distress Respiratory: normal respiratory effort, lungs clear to auscultation Cardiovascular: Rate/Rhythm: regular rate and regular rhythm Heart Sounds: no murmur Vessels: no JVD Extremities: + edema (1+ LE edema) Gastrointestinal (Abdomen): Inspection/Auscultation: abdomen normal to inspection; abdomen not distended Percussion/Palpation: + abdomen tender (mild diffuse tenderness) Neurologic: PERRL, EOMI, accommodation nl, no face palsy, no dysarthria Psychiatric: A+Ox3, euthymic affect Results & Data Vital Signs (Past 12 Hours) Vital Signs Pulse Pulse Resp BP BP Pulse Ox O2 Del Method 11/10/23 07:33 61 11/10/23 03:00 56 L 13 147/81 H 94 Room Air 11/10/23 02:45 63 13 164/78 H 97 Room Air 11/10/23 02:26 36 L 11/10/23 02:00 72 17 165/72 H 95 Room Air 11/10/23 01:40 82 19 153/94 H 95 Room Air 11/10/23 01:16 77 21 163/84 H 95 Room Air 11/10/23 01:00 85 178/90 H 11/10/23 01:00 85 17 178/90 H 96 Room Air 11/10/23 00:59 86 178/90 H 11/10/23 00:48 85 20 96 Room Air 11/10/23 00:30 85 17 179/97 H 96 Room Air 11/10/23 00:22 86 11/10/23 00:00 88 19 177/130 H 96 Room Air 11/09/23 23:30 81 16 189/92 H 96 Room Air 11/09/23 23:28 84 15 171/97 H 96 Room Air 11/09/23 23:00 81 23 93 Room Air 11/09/23 22:30 82 22 95 Room Air 11/09/23 22:20 83 19 172/81 H 97 Room Air 11/09/23 22:07 87 21 97 Room Air 11/09/23 21:31 72 14 179/89 H 96 Room Air 11/09/23 21:00 69 17 96 Room Air 11/09/23 20:30 68 15 97 Room Air 11/09/23 20:25 73 20 96 Room Air 11/09/23 20:25 73 20 204/99 H 96 Room Air Laboratory Results Cardiac Enzymes 11/09/23 Range/Units 19:45 AST 22 (13-39) U/L CBC 11/09/23 Range/Units 19:45 WBC 9.03 (4.8-10.8) K/ul RBC 4.61 (4.20-5.40) M/uL Hgb 14.1 (12.0-16.0) g/dl Hct 41.3 (37.0-47.0) % Plt Count 303 (130-400) K/uL Neut # (Auto) 6.87 H (1.40-6.50) K/uL Lymph # (Auto) 1.48 (1.20-3.40) K/uL [place] # (Auto) 0.47 (0.11-0.59) K/uL Eos # (Auto) 0.13 (0.00-0.50) K/uL Baso # (Auto) 0.05 (0.00-0.20) K/uL Comprehensive Metabolic Panel 11/09/23 Range/Units 19:45 Sodium 138 (136-145) mmol/L Potassium 4.0 (3.5-5.1) mmol/L Chloride 105 (98-107) mmol/L Carbon Dioxide 27 (21-32) mmol/L BUN 15 (6-23) mg/dl Creatinine 0.70 (0.6-1.2) mg/dl Glucose 111 H (70-99(Fasting)) mg/dl Calcium 9.9 (8.6-10.3) mg/dl AST 22 (13-39) U/L ALT 17 (7-52) U/L Alkaline Phosphatase 49 (34-104) U/L Total Protein 7.6 (6.0-8.3) gm/dl Albumin 4.5 (3.4-5.0) gm/dl Intake and Output 11/09/23 11/10/23 11/10/23 22:59 06:59 14:59 Intake Total 278 / 278 Balance 278 / 278 Intake: IV 278 / 278 Acetaminophen 1,000 mg In 100 100 / 100 ml @ 400 mls/hr IV NOW STA Rx#: [id number] Sodium Chloride 0.9% 1,000 ml @ 128 / 128 60 mls/hr IV .[id number] Rx#: [id number] SODIUM 2,000 mg In 50 / 50 50 ml @ 100 mls/hr IV ONE STA Rx#:[id number] Other: Weight 83 kg 83.2 kg Weight Measurement Method Chair Scale Built in [facility] Patient Weight 11/11/23 06:59 Weight 83.2 kg Diagnostic Findings Telemetry reviewed: NSR with occ PVC's. The telemetry strips in question in regards to the bradycardic episode are Sinus with 1st degree AV block and PVC's (low voltage) in a pattern of bigeminy. EKG from admission: NSR with long first degree AV block. Possible old inferior and anterior infarct with poor R wave progression No significant change from previous Repeat EKG from 3:00AM: NSR with PVC and 1st degree AV block poor R wave progression. No change from previous other than PVC's Abdominal CT report reviewed from admission: IMPRESSION: 1. Dilated small bowel measuring up to 3.2 cm, consistent with small bowel obstruction. Likely from postoperative adhesions. Transition point likely in the pelvis. 2. Prominent endometrial complex measuring up to 3.1 cm for the patient's age. Endometrial hyperplasia/cancer cannot be excluded. 3. Status post ventral abdominal wall hernia repair. Prior outside data: ZIO monitor report reviewed from September 2023 Final Interpretation Patient had a min HR of 51 bpm, max HR of 156 bpm, and avg HR of 69 bpm. Predominant underlying rhythm was Sinus Rhythm. First Degree AV Block was present. 27 Supraventricular Tachycardia runs occurred, the run with the fastest interval lasting 15 beats with a max rate of 156 bpm, the longest lasting 18 beats with an avg rate of 96 bpm. Isolated SVEs were rare (<1.0%), SVE Couplets were rare (<1.0%), and SVE Triplets were rare (<1.0%). Isolated VEs were occasional (1.0%, [id number]), VE Couplets were rare (<1.0%, 155), and VE Triplets were rare (<1.0%, 13). Ventricular Bigeminy and Trigeminy were present. Fifteen patient triggered events were submitted and two diary events were submitted. Symptoms correlated with sensed premature ventricular contractions and premature atrial contractions. The overall frequency of the premature ventricular contractions was moderate, accounting for 1% of the total QRS complexes. No symptoms were associated with relatively brief episodes of supraventricular tachycardia. Medications Administered Current Inpatient Medications Atropine Sulfate (Atropine Sulfate 0.1 Mg/Ml 10ml Syr) 1 mg IV Q3M PRN PRN Reason: symptomatic bradycardia Stop: 12/10/23 03:05 Enoxaparin Sodium (Enoxaparin Inj 40 Mg/0.4 Ml Syr) 40 mg SQ [facility] Stop: 12/10/23 08:59 Last Admin: 11/10/23 08:14 Dose: 40 mg Sodium Chloride (Nss) 1,000 mls @ 60 mls/hr IV .[id number] [facility] Stop: 12/09/23 23:14 Last Infusion: 11/10/23 01:03 Dose: 60 mls/hr Promethazine HCl 6.25 mg/ (Sodium Chloride) 50.25 mls @ 201 mls/hr IV Q6H PRN PRN Reason: Nausea And Vomiting Stop: 12/10/23 00:21 Acetaminophen (Ofirmev) 1,000 mg in 100 mls @ 400 mls/hr IV Q8H PRN PRN Reason: pain/fever Stop: 11/13/23 00:21 Ceftriaxone Sodium (Rocephin) 2,000 mg in 50 mls @ 100 mls/hr IV Q24H [facility] Stop: 11/21/23 05:59 Lisinopril (Lisinopril 5 Mg Tab) 5 mg PO QAM [facility] Stop: 12/10/23 08:59 Last Admin: 11/10/23 08:15 Dose: 5 mg Morphine Sulfate (Morphine Sulfate 2 Mg/Ml Carp) 2 mg IV Q6H PRN PRN Reason: Pain Stop: 11/24/23 00:21 Pantoprazole Sodium (Pantoprazole 40 Mg Tab) 40 mg PO QAM [facility] Stop: 12/10/23 08:59 Last Admin: 11/10/23 08:15 Dose: 40 mg Pravastatin Sodium (Pravastatin Sod 20 Mg Tab) 20 mg PO DAILY [facility] Stop: 12/10/23 08:59 Last Admin: 11/10/23 08:16 Dose: 20 mg
[2023-11-10] MEDS ORDERED: METOPROLOL SUCC 25MG EXT REL TAB PO SCH (09:00)
--- NOTE | 2023-11-10 11:06 | Surgery Consultation ---
Date of Consultation November 10, 2023 Assessment & Plan (1) SBO (small bowel obstruction): Her CT images and results were personally viewed and interpreted by myself She is already improved since admission and has a fairly benign abdominal exam No plans for surgery at this point Keep NPO for today If she has a more significant return of bowel function, can give clears later Will follow History of Present Illness Reason for Consultation: SBO Attending Physician: Mundo Cancino MD History of Present Illness This is an 83 yo female who presented last evening with several hours of left- sided abdominal pain, sharp in nature that would come in waves. She is never had this type of pain in the past. She was belching a fair amount, but had no nausea or vomiting. She came to the emergency room and a CT of the abdomen pelvis was performed that revealed a small bowel obstruction. She states that her abdominal pain is much improved at this point compared to when she was admitted. She had a small bowel movement this morning. She states she is passing some flatus. She did have a large ventral hernia repair in the with mesh, otherwise no other abdominal surgeries. She does not take any blood thinners. Allergies Allergy/AdvReac Type Severity Reaction Status Date / Time aspirin AdvReac Intermediate HX Verified 11/09/23 23:31 BLEEDING ULCERS Home Medications Medication Instructions Recorded Confirmed Type pantoprazole 40 mg tablet,delayed 40 mg PO QAM 08/22/18 11/10/23 History release pravastatin 20 mg tablet 20 mg PO DAILY 08/22/18 11/10/23 History lisinopril 5 mg tablet 5 mg PO QAM 08/24/18 11/10/23 History hydrochlorothiazide 25 mg tablet 25 mg PO 2XWK 11/09/23 11/10/23 History metoprolol succinate 25 mg 12.5 mg PO AMHS 11/09/23 11/10/23 History tablet,extended release 24 hr B.animalis-B.bifidum-B.infantis-B.longum 1 tab PO QAM 11/10/23 11/10/23 History 10 mg-15 mg tablet,delay rel Turmeric Curcumin 5-1000mg 1,000 mg PO DAILY 11/10/23 11/10/23 History apple cider vinegar 300 mg tablet 300 mg PO DAILY 11/10/23 11/10/23 History calcium carbonate 600 mg-vitamin 2 tab PO DAILY 11/10/23 11/10/23 History D3 5 mcg (200 unit) tablet (Calcium 600 + D(3)) cholecalciferol (vitamin D3) 50 50 mcg PO DAILY 11/10/23 11/10/23 History mcg (2,000 unit) tablet (Vitamin D3) cranberry extract 500 mg capsule 1,000 mg PO DAILY 11/10/23 11/10/23 History denosumab 60 mg/mL subcutaneous 60 mg subcut .EVERY 6 MONTHS 11/10/23 11/10/23 History syringe (Prolia) glucosamine-chondroitin 250 mg-200 2 tab PO DAILY 11/10/23 11/10/23 History mg tablet (Osteo Bi-Flex) magnesium 250 mg tablet 250 mg PO QAM 11/10/23 11/10/23 History multivitamin with minerals 2 tab PO DAILY 11/10/23 11/10/23 History (Hair,Skin and Nails tablet) nutritional supplement-fiber oral 2 ea PO DAILY 11/10/23 11/10/23 History liquid Patient History Medical History No significant family history Anemia HTN (hypertension) Surgical History No significant past surgical history Social History Smoking Status: Never smoker Second Hand Exposure: No; Do You Dip or Chew Tobacco: No; Hx Alcohol Use: No Hx Substance Use: No Preferred Language: Guyanese Communication Ability: Effective Stage Set Designer Required: No Beliefs That Will Affect Care: None Current Living Situation: Spouse Other Information That Helps Us Care for You: No Feels Safe at Home: Yes Safety Concerns: Feels Safe At This Time Assistive Devices: Glasses and Hearing Aid - Bilateral Review of Systems Constitutional: no fever and no chills Eyes: no blind spots and no worsening vision Ear, Nose, Mouth, Throat: no ear pain and no dizziness Respiratory: no cough and no dyspnea Cardiovascular: no chest pain and no dyspnea on exertion Gastrointestinal: + abdominal pain and + belching; no naus ea, no vomiting, no constipation and no diarrhea/loose stools Genitourinary: no dysuria and no urinary urgency Musculoskeletal: no back pain and no neck pain Integumentary: no acne, no skin ulcer and no erythema Neurologic: no headache(s), no confusion and no memory loss Psychiatric: no behavioral changes and no depression Hematologic / Lymphatic: no easy bleeding and no easy bruising Physical Exam Constitutional: WD/WN, vitals as above Eyes: PERRL, conjunctivae normal, anicteric sclerae ENMT: external ear and nose normal, oropharynx normal Neck: trachea midline, no thyromegaly Respiratory: normal respiratory effort, lungs clear to auscultation Cardiovascular: RRR, no murmur, no edema Gastrointestinal (Abdomen): Inspection/Auscultation: abdomen normal to inspection; abdomen not distended Percussion/Palpation: + abdomen tender (Mild generalized) and abdomen soft; no guarding and no hernia Musculoskeletal: no cyanosis or clubbing, extremities motor strength 5/5 Skin: no rashes, warm and dry Neurologic: PERRL, EOMI, accommodation nl, no face palsy, no dysarthria Psychiatric: A+Ox3, euthymic affect Results & Data Vital Signs (Past 12 Hours) Vital Signs Temp Pulse Pulse Resp BP BP Pulse Ox 11/10/23 10:31 36.5 C 69 16 179/86 H 96 11/10/23 07:33 61 11/10/23 03:00 56 L 13 147/81 H 94 11/10/23 02:45 63 13 164/78 H 97 11/10/23 02:26 36 L 11/10/23 02:00 72 17 165/72 H 95 11/10/23 01:40 82 19 153/94 H 95 11/10/23 01:16 77 21 163/84 H 95 11/10/23 01:00 85 178/90 H 11/10/23 01:00 85 17 178/90 H 96 11/10/23 00:59 86 178/90 H 11/10/23 00:48 85 20 96 11/10/23 00:30 85 17 179/97 H 96 11/10/23 00:22 86 11/10/23 00:00 88 19 177/130 H 96 11/09/23 23:30 81 16 189/92 H 96 11/09/23 23:28 84 15 171/97 H 96 O2 Del Method 11/10/23 10:31 Room Air 11/10/23 07:33 11/10/23 03:00 Room Air 11/10/23 02:45 Room Air 11/10/23 02:26 11/10/23 02:00 Room Air 11/10/23 01:40 Room Air 11/10/23 01:16 Room Air 11/10/23 01:00 11/10/23 01:00 Room Air 11/10/23 00:59 11/10/23 00:48 Room Air 11/10/23 00:30 Room Air 11/10/23 00:22 11/10/23 00:00 Room Air 11/09/23 23:30 Room Air 11/09/23 23:28 Room Air PG Care Time/CCT Total # of Minutes Spent Total Time Spent with Patient: Total time spent is greater than 50% in coordination of care (as documented) at patient's floor/unit and/or counseling patient: Coding Level of Care Code 28840 INT INP/OBS CARE 3/75MIN Diagnoses SBO (small bowel obstruction) K56.609
--- NOTE | 2023-11-10 12:20 | Electrocardiogram Report ---
Test Reason : Blood Pressure : / mmHG Vent. 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
[2023-11-10] MEDS: METOPROLOL SUCC 25MG EXT REL TAB PO SCH (13:31)
[2023-11-10 13:51] LABS: Cdiff Toxin B Gene (2yr or >) Positive Cdiff Gene (Neg)
[2023-11-10 14:25] LABS: Cdiff Antigen Negative; Cdiff Toxin A+B Negative Cdiff Toxin (Negative)
[2023-11-10] MEDS ORDERED: hydrALAZINE HCL 20 MG/ML VIAL IV PRN (14:36)
--- NOTE | 2023-11-10 14:42 | Hospitalist Progress Note ---
Date of Service November 10, 2023 Assessment & Plan (1) Asymptomatic hypertensive urgency: Plan: 83-year-old female with PMH of HTN, HLD, left breast cancer status post surgery/radiation/tamoxifen treatment, prediabetes, past tobacco abuse presented to the ED 11/08 with complaint of lower abdominal discomfort reminiscent of diverticulitis attack. Patient also complained of constipation. Denied any nausea or vomiting or fever or chills or headache or dizziness. Her initial labs SBPs was in 200s at presentation. She is being managed for the following: Small bowel obstruction Patient presenting with lower abdominal pain and constipation Admitting CTAP consistent with small bowel obstruction likely from postoperative adhesions. N.p.o., IV fluids. Pain management. General surgery on board, appreciate recommendation. Patient is moving gas, reports improvement in her lower belly pain. Hypertensive urgency: Initial SBP's in 200s, likely secondary to pain secondary to a small bowel obstruction. Expect to improve with improvement in SBO. As needed blood pressure medication, continue home blood pressure medication. Telemetry monitoring. Blood pressure getting better. Abnormal admitting CTAP: Endometrial complex measuring up to 3.1 cm, follow-up with gynecology upon discharge. Complicated UTI: Continue with ceftriaxone 11/10, follow urine culture. Concern for symptomatic bradycardia: Patient heart rate noted to be 30s around 2:30 AM as per RN on 11/09. Patient felt lightheaded during episode per HnP. Card io on board - no evidence of significant bradycardia or high degree AV block, appreciate recs. Other chronic medical conditions: Continue with/resume home meds as and when a ble. valvular heart disease (mild MR/TR, TTE 2018) hyperlipidemia on statin Rx left breast cancer status post surgery/radiation/tamoxifen Rx, in remission prediabetes, 5.9 last July 2023 past tobacco abuse DVT prophylaxis. Lovenox subcu Full code Patient Mr. Matti Cheung, contact #[phone]. Text document was generated using [email or web address] voice recognition software. It may contain grammatical or spelling errors. Kindly contact undersigned for clarification of any documentation item in question. Admission and Anticipated Discharge Date Admission Date: November 09, 2023 Subjective Patient was seen and examined at bedside. Patient was lying in bed, on room air, NAD, resting comfortably. Patient reports moving gas today, reports improvement in her abdominal pain. Patient denies febrile illness or cough or chest pain or dizziness. Physical Exam Physical Exam: GENERAL: Slightly uncomfortable, obese, pleasant, no respiratory distress SKIN: Normal color, warm HEENT: [place] palpebral conjunctivae, no ptosis, dry buccal mucosa NECK : Supple, short neck, no tenderness CHEST : CTA, no tenderness HEART : RRR, no obvious murmurs ABDOMEN: distention, hypogastric tenderness mild EXTREMITIES : Minimal LE swelling, no LE tenderness, no other conspicuous deformities noted NEUROLOGIC : Coherent, no facial asymmetry, no other gross focality Results & Data Results & Data Vital Signs (Past 12 Hours) Vital Signs Temp Pulse Pulse Resp BP BP Pulse Ox 11/10/23 13:21 36.5 C 78 16 162/80 H 97 11/10/23 11:26 36.5 C 70 19 173/100 H 99 11/10/23 10:31 36.5 C 69 16 179/86 H 96 11/10/23 07:33 61 11/10/23 03:00 56 L 13 147/81 H 94 11/10/23 02:45 63 13 164/78 H 97 O2 Del Method 11/10/23 13:21 Room Air 11/10/23 11:26 Room Air 11/10/23 10:31 Room Air 11/10/23 07:33 11/10/23 03:00 Room Air 11/10/23 02:45 Room Air
--- OUTSIDE RECORDS SUMMARY | 2023-11-10 22:51 | External Medical Summary | Summary of Care ---
Author Name Unknown Organization [facility] Address [address] [place] [address] Phone [phone] Care Team Providers Care Field Reviewer Name Role Phone Janell Cain MD Primary Care Provider + Reason for Visit * Reason Onset Date Comments Adult Annual Wellness Visit, Subsequent Visit Encounter Details Date Type Department Care Team (Late st Contact Info) Description 11/09/2023 10:00 AM EDT Nurse Only Ancillary [facility] [address] [place] [address] [facility] [address] [place] [address] Adult Annual Wellness Visit, Subsequent Visit Allergies Active Allergy Reactions Criticality Noted Date Comments Aspirin 11/28/2015 bleeding Bleeding-stomach ulcers documented as of this encounter (statuses as of 11/09/2023) Medications Medication Sig Dispensed Refills Start Date End Date Status metroNIDAZOLE, topical, (METROCREAM) 0.75 % creamIndications :Rosacea Apply topically to affected area 2 times a day. apply to affected area. 45 g 1 08/31/2017 Active Cranberry-Vitami n C 81830-866 MG Oral Capsule 02/20/2018 Active Calcium Citrate-Vitamin D (CITRACAL/VITAMI N D) 250-200 MG-UNIT per tablet Take 1 Tab by mouth daily. 30 Tab 11 06/01/2018 Active Additional Information Patient taking differently: 2 TabletOral Daily(AM), Informant: Patient, Reported on 08/03/2022 denosumab (PROLIA) 60 MG/ML injection Inject 60 mg under the skin every 6 months. Active Glucosamine Sulfate 1000 MG CAPS DAILY IN THE MORNING 08/22/2018 Active Apple Cider Vinegar 188 MG Oral Capsule Take by mouth. Active Vitamin D 50 MCG (2000 UT) Oral Capsule Take 2,000 Units by mouth daily. Active Triamcinolone Acetonide 0.5 % External CreamIndications :Insect bite of left upper arm with local reaction, initial encounter Apply topically to affected area 4 times a day. To affected area for one week 60 g 12/21/2020 Active hydroCHLOROthiaz aj 25 MG Oral Tablet (Hydrodiuril)Ind ications:HTN, goal below 140/90,Contusion of left chest wall, initial encounter Take two days per week and as needed for edema 100 Tablet 3 10/13/2022 Active Nystatin 992217 UNIT/GM External OintmentIndicati ons:Candidal intertrigo Apply topically to affected area 2 times a day. To affacted area for two weeks. 30 g 2 12/01/2022 Active Pantoprazole Sodium 40 MG Oral Tablet Delayed Release (Protonix)Indica tions:GERD (gastroesophagea l reflux disease) Take 1 Tablet by mouth in the morning. 90 Tablet 3 12/16/2022 Active Pravastatin Sodium 20 MG Oral Tablet (Pravachol) TAKE 1 TABLET DAILY 90 Tablet 3 04/04/2023 Active Lisinopril 5 MG Oral Tablet (Prinivil) Take 1 Tablet by mouth in the morning. 90 Tablet 1 05/26/2023 Active Metoprolol Succinate ER 25 MG Oral Tablet Extended Release 24 Hour (toPROL XL)Indications:H TN, goal below 140/90 Take 0.5 Tablets by mouth in the morning and 0.5 Tablets before bedtime. 90 Tablet 3 10/06/2023 Active Magnesium 250 MG Oral Tablet Take 1 Tablet by mouth in the morning. Active Turmeric Curcumin 5-1000 MG Oral Capsule Take by mouth. Activ e Hair Skin & Nails Advanced Oral Tablet Take by mouth. Active Probiotic Daily Oral Capsule Take 1 Capsule by mouth in the morning. Active Juice Plus Fibre Oral Liquid Take by mouth. Active DAILY MULTIPLE VITAMINS PO TABS 1 TABLET DAILY 05/28/2014 4 Discontinued Magnesium Oxide 400 MG Tablet DAILY 08/25/2018 4 Discontinued documented as of this encounter (statuses as of 11/09/2023) Active Problems Problem Noted Date Diagnosed Date Prediabetes 08/22/2023 Overview: Per Prediabetes protocol Senile osteoporosis 03/05/2020 Personal history of malignant neoplasm of breast 02/24/2018 BMI 35-39 ISOLATED (SEE ACTUAL BMI) 11/24/2009 Overview: Per Obesity Protocol, #19 Other osteoporosis without current pathological fracture 11/15/2008 Overview: ICD-10 update of inactive term ADVANCE DIRECTIVE INFORMATION 02/08/2005 HTN, goal below 140/90 Hyperlipidemia with target LDL less than 130 Overview: ICD-10 update of inactive term Aspirin contraindicated documented as of this encounter (statuses as of 11/09/2023) Resolved Problems Problem Noted Date Diagnosed Date Resolved Date Malignant neoplasm of lower- inner quadrant of female breast 02/08/2005 02/24/2018 Overview: 1992 HTN, goal below 140/90 11/30 documented as of this encounter (statuses as of 11/09/2023) Immunizations Name Administration Dates Next Due COVID-19 mRNA, LNP-s, No Pre serve, 2-Dose Series ([employer]) 09/17/2021,04/04/2021,08/25/2020,07/21 COVID-19, MRNA-LNP, 23-24, P F, 30 MCG/0.3 mL, 12 YRS AND ABOVE, IM (PFIZER-Comirnaty) 03/30/2023 Covid-19, Mrna, Lnp-s, Pf, B ivalent, 30 Mcg, IM, 12 yrs and above (Pfizer) 03/25/2022 H1N1 2009 Influenza, IM 07/03/2009 Pneumococcal Conjugate Vacc, 13 Valent (Prevnar) 11/28/2015 Pneumococcal Conjugate Vacci ne, 7 Valent 08/09/2005 Pneumococcal Polysaccharide PPV23 (Pneumovax) 01/05/2010 Seasonal Influenza Virus Vac cine, Unspecified Formulation 03/30/2023,03/25/2022,05/26/2021,03/20,03/18/2020,04/16/2019,04/17/2018 ,04/13/2017,06/01/2016,03/08/2014,04/14,03/28/2012,04/08/2011, 0,04/27/2009,04/27/2008,04/19/2006 Seasonal Influenza, Quad, Na ronal (Flumist) 04/17/2018 Seasonal Influenza, Quadrivalent, ID 05/26/2021, 03/18/2020 Seasonal Influenza, Quadriva lent, No Preserve, IM 04/13/2017,06/01/2016,04/20/2015 Seasonal Influenza, Split, I IV3, With Preserve, Inj 03/08/2014,05/11/2013,03/28/2012,04/08,03/24/2010,04/27/2009,04/27/2008 ,04/19/2006 Seasonal Influenza, Trivalen t, Adjuvanted, 65+ yrs 03/20/2020,04/16/2019 Seasonal Influenza, Trivalen t, High Dose, No Preserve, IM 03/25/2022 TD, Preservative Free 11/19/2002 TDAP (age 10 and older)(Boostrix) 09/07/2022, Varicella Zoster Vaccine (Adult) 01/12/2013 Zoster Vaccine Recombinant (Shingrix) ,03/28/2020,03/28/2020,07/26 documented as of this encounter Social History Tobacco Use Types Packs/Day Years Used Date Smoking Tobacco: Former Smokeless Tobacco: Never Tobacco Cessation:Counseling Given: Not Answered Comments:>30 yrs. ago quit / only smoked for a couple yrs. Alcohol Use Standard Drinks/Week Comments No 0 (1 standard drink = 0.6 oz pur e alcohol) PHQ-2 Answer Date Recorded PHQ Adult Total Score 0 11/02/2022 Hunger Vital Sign Answer Date Recorded Within the past 12 months, y ou worried that your food would run out before you got the money to buy more. Never true 11/03/19 Within the past 12 months, t he food you bought just didn't last and you didn't have money to get more. Never true 11/02/2022 Sex and Gender Information Value Date Recorded Sex Assigned at Female 01/16/2019 8:36 AM EDT Gender Identity Female 01/16/2019 8:36 AM EDT Sexual Orientation Straight 10/24/2021 11 :24 PM EDT Job Start Date Occupation Industry Not on file Not on file Not on file documented as of this encounter Last Filed Vital Signs Vital Sign Reading Time Taken Comments Blood Pressure 134/70 11/09/2023 10:10 AM EDT Pulse 76 11/09/2023 10:10 AM EDT Temperature 37.2 C (98.9 F) 11/09/2023 10:10 AM E DT Respiratory Rate - - Oxygen Saturation - - Inhaled Oxygen Concentration - - Weight 83 kg (182 lb 14.4 oz) 11/09/2023 10:10 A M EDT Height 152.4 cm (5') 11/09/2023 10:10 AM EDT Body Mass Index 35.72 11/09/2023 10:10 AM EDT documented in this encounter Patient Instructions * Patient Instructions* Alxea Real RN - 11/09/2023 10:03 AM EDT Hi Ms. Cheung, As your primary care physician, I know that regular visits with my patients who have several chronic conditions can go a long way in helping you stay healthy. Many times, the clinic team and I are in touch with you and/or other care team members between office visits to adjust medications, discuss any changes in your health, and review our care plan to make sure it is still meeting your needs. I am dedicated to helping you take a more active role in your overall care. It is important that there are resources available to you, so I created a personalized plan of care with a Health Calendar for you, which is included on the next page of this letter. Below is a list that summarizes your electronic health record: Health Maintenance Due: Health Maintenance Due Topic Date Due COVID-19 Vaccine ( season) 2023 *NEPHROLOGY REFERRAL DUE TO RESISTANT HTN Never done Current Medication List: (as of Visit date not found (in office), Visit date not found (telemedicine) ) Current Outpatient Medications Medication Sig Dispense Refill DAILY MULTIPLE VITAMINS PO TABS 1 TABLET DAILY metroNIDAZOLE, topical, (METROCREAM) 0.75 % cream Apply topically to affected area 2 times a day. apply to affected area. 45 g 1 Cranberry-Vitamin C 33199-235 MG Oral Capsule Calcium Citrate-Vitamin D (CITRACAL/VITAMIN D) 250-200 MG-UNIT per tablet Take 1 Tab by mouth daily. (Patient taking differently: Take 2 Tablets by mouth in the morning.) 30 Tab 11 denosumab (PROLIA) 60 MG/ML injection Inject 60 mg under the skin every 6 months. Glucosamine Sulfate 1000 MG CAPS DAILY IN THE MORNING Magnesium Oxide 400 MG Tablet DAILY Apple Cider Vinegar 188 MG Oral Capsule Take by mouth. Vitamin D 50 MCG (2000 UT) Oral Capsule Take 2,000 Units by mouth daily. Triamcinolone Acetonide 0.5 % External Cream Apply topically to affected area 4 times a day. Toaffected area for one week 60 g 0 hydroCHLOROthiazide 25 MG Oral Tablet (Hydrodiuril) Take two days per week and as needed for edema 100 Tablet 3 Nystatin 246565 UNIT/GM External Ointment Apply topically to affected area 2 times a day. To affacted area for two weeks. 30 g 2 Pantoprazole Sodium 40 MG Oral Tablet Delayed Release (Protonix) Take 1 Tablet by mouth in the morning. 90 Tablet 3 Pravastatin Sodium 20 MG Oral Tablet (Pravachol) TAKE 1 TABLET DAILY 90 Tablet 3 Lisinopril 5 MG Oral Tablet (Prinivil) Take 1 Tablet by mouth in the morning. 90 Tablet 1 Metoprolol Succinate ER 25 MG Oral Tablet Extended Release 24 Hour (toPROL XL) Take 0.5 Tabletsby mouth in the morning and 0.5 Tablets before bedtime. 90 Tablet 3 No current facility-administered medications for this visit. Current List of Allergies: (as of Visit date not found (in office), Visit date not found (telemedicine) ) Review of patient's allergies indicates: Allergen Reactions Aspirin bleeding Bleeding-stomach ulcers Most Recent Lab Results: Results for orders placed or performed in visit on 09/28/23 25-HYDROXY VITAMIN D Result Value Ref Range 25-Hydroxy Vitamin D 42 >19 ng/mL CALCIUM Result Value Ref Range Calcium 9.8 8.4 - 10.2 mg/dL CREATININE Result Value Ref Range Creatinine 0.8 0.5 - 1.0 mg/dL Estimated Glomerular Filtration Rate 74 >=60 mL/min Sincerely, Janell Cain MD 11/09/2023 [facility] Calendar (as of Visit date not found (in office), Visit date not found (telemedicine) ) Care needs Care needs Last completed Due next COVID-19 Vaccine ( season) 2023 07/31/2023 Discussion about referral to a hypertension specialist --- Never done Bone Density 06/09/2022 06/09/2024 A1C blood sugar test 07/29/2023 07/29/2024 Kidney Function Test 09/28/2023 09/27/2024 Urine albumin/creatinine test 01/28/2022 01/28/2025 Colonoscopy 02/12/2021 02/12/2026 Diphtheria, tetanus & pertussis vaccines (3 - Td or Tdap) 09/07/2022 09/07/2032 As you look over the recommended services, be sure to check with your insurance company to determine what's covered. [employer] is a great tool that helps you review your medical record online, including test results, doctor notes and your health summary. You can also schedule appointments with me and other members of your care team, request prescription refills and ask for advice related to your medical conditions at [email or web address]. Patient Instructions - Fall Prevention (This education is for all patients over 65 regardless of symptoms) Remember to take your current medications as prescribed. In order to prevent falls, you are encouraged to: Exercise Utilize assistive/adaptive devices Avoid multifocal lenses when walking Avoid hazards in home Maintain a regular toileting schedule Any questions please contact our office. Preventing Falls in the Home (This education is for all patients over 65 regardless of symptoms) As you get older, falls are more likely. Thats because your reaction time slows. Your muscles and joints may also get stiffer, making them less flexible. Illness, medications, and vision changes can also affect your balance. A fall could leave you unable to live on your own. To make your home safer, follow these tips: Floors Put nonskid pads under area rugs Remove throw rugs Replace worn floor coverings Tack carpets firmly to each step on carpeted stairs. Put nonskid strips on the edges of uncarpeted stairs Keep floors and stairs free of clutter and cords Arrange furniture so there are clear pathways Clean up any spills right away Bathrooms Install grab bars in the tub or shower Apply nonskid strips or put a nonskid rubber mat in the tub or shower Sit on a bath chair to bathe Use bathmats with nonskid backing Lighting Keep a flashlight in each room Put a nightlight along the pathway between the bedroom and the bathroom Pat Patient Education Copyright 2008 - 2010 Pat except where otherwise noted Kegel Exercises Kegel exercises dont require special clothing or equipment. Theyre easy to learn and simple to do. And if you do them right, no one can tell youre doing them, so they can be done almost anywhere. Your doctor, nurse, or physical therapist can answer any questions you have and help you get started. A Weak Pelvic Floor The pelvic floor muscles may weaken due to aging, and vaginal childbirth, injury, surgery, chronic cough, or lack of exercise. If the pelvic floor is weak, your bladder and other pelvic organs may sag out of place. The urethra may also open too easily and allow urine to leak out. Kegel exercises can help you strengthen your pelvic floor muscles so they can better support the pelvic organs and control urine flow. How Kegel Exercises Are Done Try each of the Kegel exercises described below. When youre doing them, try not to move your leg, buttock, or stomach muscles. While youre urinating, try to stop the flow of urine. Start and stop it as often as you can. Contract as if you were stopping your urine stream, but do it when youre not urinating. Tighten your rectum as if trying not to pass gas. Contract your anus, but dont move your buttocks. Helpful Hints Do your Kegels as often as you can. The more you do them, the faster youll feel the results. Pick an activity you do often as a reminder. For instance, do your Kegels every time you sit down. Tighten your pelvic floor before you sneeze, get up from a chair, cough, laugh, or lift. This protects your pelvic floor from injury and can help prevent urine leakage. Try to hold each Kegel for a slow count to five. You probably wont be able to hold them for thatlong at first, but keep practicing. It will get easier as your pelvic floor gets stronger. Eventually, special weights that you place in your vagina may be recommended to help make your Kegels even more effective. Pat Patient Education Copyright 2008 - 2010 Pat except where otherwise noted. documented in this encounter Progress Notes * Alexa Real, RN - 11/09/2023 10:03 AM EDT Adult Annual Wellness Visit: Maria A Cheung is a 83 year old female who presents for an Adult Annual Wellness Visit. Depression Screening: Did the patient complete the screening questionnaire for Depression? Yes Is the patient's total score for Depression 15 or greater? No, no further intervention needed, unless requested by patient. Did the patient answer positively to the suicide question? No, no further intervention needed, unless requested by patient. In general, compared to other people your age, what would you say that your health is? Very Good Ht Readings from Last 1 Encounters: 11/09/23 1.524 m (5') Wt Readings from Last 1 Encounters: 11/09/23 83 kg (182 lb 14.4 oz) Body Mass Index: BMI Greater than 30 Body mass index is 35.72 kg/m. 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 Bite by unspecified animal(E906.5) cat bite ~11/19/02, completed 1/2 of rabies series, cat ok after ~14 days Breast cancer (HCC) 1991 left breast Diverticulitis of colon 2004 Cscope HTN, goal below 140/90 Hyperlipidemia LDL goal < 130 Malignant neoplasm of female breast (HCC) 1992 Breast; s/p XRT L breast lumpctomy and tamoxifen; in clinical trial now Peptic ulcer Personal history of radiation therapy 1992 Past Surgical History: Procedure Laterality Date ANESTH, LOWER ABDOMEN HERNIA REPAIR 1999 laprascopic BREAST BIOPSY Left 1991 malignant CATARACT SURGERY,COMPLEX Bilateral 2019 CATARACT SURGERY,COMPLEX 2015 COLONOSCOPY 10/2004 polyp ascending colon COLONOSCOPY, DIAGNOSTIC (RECTUM) 02/03/2011 diverticulosis COLONOSCOPY, DIAGNOSTIC (RECTUM) 01/07/2016 hyperplastic polyp, diverticulosis, repeat 5 yrs/COLONOSCOPY FLEXIBLE PROXIMAL DIAGNOSTIC performedby Santiago Kelly DO at ENDOSCOPY [facility] COLONOSCOPY, DIAGNOSTIC (RECTUM) 02/12/2021 non-thrombosed external hemorrhoids, 1-5mm ceceum, moderate diverticulosis in sigmoid colon, internal hemorrhoids /benign adenomatous polyp / 5 year recall / COLONOSCOPY FLEXIBLE PROXIMAL DIAGNOSTIC performed by Santiago Kelly DO at [facility] EGD, FLEXIBLE, DIAGNOSTIC 05/19/2012 UPPER GI ENDOSCOPY DIAGNOSTIC performed by Aleyda Bender MD at [facility] EGD, FLEXIBLE, DIAGNOSTIC 06/14/2012 UPPER GI ENDOSCOPY DIAGNOSTIC performed by Aleyda Bender MD at [facility] NO EVIDENCE OF CANCEROUS CHANGES EGD, FLEXIBLE, DIAGNOSTIC 04/17/2014 healing antral ulcer, with possible submucosal antral mass/ESOPHAGOGASTRODUODENOSCOPY (EGD), FLEXIBLE, TRANSORAL, DIAGNOSTIC performed by Aleyda Bender MD at [facility] EGD, FLEXIBLE, DIAGNOSTIC 03/04/2014 PUD, repeat 6-8 wks/inpt @ [facility] EGD, FLEXIBLE, DIAGNOSTIC 04/29/2015 normal, repeat EUS 1 yr/ESOPHAGOGASTRODUODENOSCOPY (EGD), FLEXIBLE, TRANSORAL, DIAGNOSTIC performedby Aleyda Bender MD at [facility] EGD, FLEXIBLE, DIAGNOSTIC 02/12/2021 z-line regular 38cm, enlarged gastric folds of the antrum / no speicmens collected / ESOPHAGOGASTRODUODENOSCOPY (EGD), FLEXIBLE, TRANSORAL, DIAGNOSTIC performed by Santiago Kelly DO at [facility] EGD, W/ENDOSCOPIC US 04/23/2014 benign cells on bx, repeat EGD 1 yr/ESOPHAGOGASTRODUODENOSCOPY (EGD), FLEXIBLE, TRANSORAL, ENDOSCOPIC ULTRASOUND performed by Santiago Kelly DO at [facility] EGD, W/ENDOSCOPIC US 04/27/2016 stromal cell (smooth muscle) neoplasm, inflammatory changes on bx, repeat 1.5 yrs/ESOPHAGOGASTRODUODENOSCOPY (EGD), FLEXIBLE, TRANSORAL, ENDOSCOPIC ULTRASOUND performed by Santiago Kelly DO at [facility] EGD, W/ENDOSCOPIC US 06/15/2018 gastric ulcer, inflammatory changes on bx, stromal cell (smooth muscle) neoplasm, repeat 2 yrs/ESOPHAGOGASTRODUODENOSCOPY (EGD), FLEXIBLE, TRANSORAL, ENDOSCOPIC ULTRASOUND performed by Santiago Kelly DO at [facility]COPY [facility] INFORMATION Left 06/29/2017 06/29/2017 excision of lipoma from left side of neck - office procedure DR. Francois MASTECTOMY, PARTIAL Left 1992 RADIATION THERAPY Left 1991 STRESS ECHO (EXERCISE) 06/2005 nl EF, no ischemia Family History Problem Relation Name Age of Onset Heart Disorder Mother Stroke Mother Breast Cancer Mother Dementia Mother Prostate cancer Father Stroke Sister No Known Problems Son No Known Problems Son No Known Problems Son No Known Problems Daughter Has patient ever had cancer? History of cancer, type: breast and location: left Social History Tobacco Use Smoking status: Former Smokeless tobacco: Never Tobacco comments: >30 yrs. ago quit / only smoked for a couple yrs. Substance Use Topics Alcohol use: No Vaping/E-Cigarette Use Vaping/E-Cigarette Use Never User Vaping/E-Cigarette Substances Vaping/E-Cigarette Devices Tobacco/Alcohol screening completed today? Yes Hospital Care: Admissions (within the last year): Not Applicable ER within 30 days: No Does the patient have an Advance Directives/Living Will? Yes Last Physical Exam: Last physical exam: 10/05 Does patient see primary provider regularly? Yes Does patient see other providers? Yes, Specialist Patient Care Team updated? Yes Review of patient's allergies indicates: Allergen Reactions Aspirin bleeding Bleeding-stomach ulcers Immunization History Administered Date(s) Administered COVID-19 mRNA, LNP-s, No Preserve, 2-Dose Series ([employer]) 07/21/2020, 08/25/2020, 04/04/2021, 09/17/2021 COVID-19, LNP-s, No Preserve, Andre-sucrose, Ages 12+ (Pfizer) 09/17/2021 COVID-19, MRNA-LNP, 23-24, PF, 30 MCG/0.3 mL, 12 YRS AND ABOVE, IM (PFIZER- Comirnaty) 03/30/2023 Covid-19, Mrna, Lnp-s, Pf, Bivalent, 30 Mcg, IM, 12 yrs and above (Pfizer) 03/25/2022 H1N1 2009 Influenza, IM 07/03/2009 Pneumococcal Conjugate Vacc, 13 Valent (Prevnar) 11/28/2015 Pneumococcal Conjugate Vaccine, 7 Valent 08/09/2005 Pneumococcal Polysaccharide PPV23 (Pneumovax) 01/05/2010 Seasonal Influenza Virus Vaccine, Unspecified Formulation 04/19/2006, 04/27/2008, 04/27/2009, 03/24/2010, 04/08/2011, 03/28/2012, 05/11/2013, 03/08/2014, 06/01/2016, 04/13/2017, 04/17/2018, 04/16/2019, 03/18/2020, 03/20/2020, 05/26/2021, 03/25/2022, 03/30/2023 Seasonal Influenza, Quad, Nasal (Flumist) 04/17/2018 Seasonal Influenza, Quadrivalent, ID 03/18/2020, 05/26/2021 Seasonal Influenza, Quadrivalent, No Preserve, IM 04/20/2015, 06/01/2016, 04/13/2017 Seasonal Influenza, Split, IIV3, With Preserve, Inj 04/19/2006, 04/27/2008, 04/27/2009, 03/24/2010,04/08/2011, 03/28/2012, 05/11/2013, 03/08/2014 Seasonal Influenza, Trivalent, Adjuvanted, 65+ yrs 04/16/2019, 03/20/2020 Seasonal Influenza, Trivalent, High Dose, No Preserve, IM 03/25/2022 TD - Tetanus/Diptheria (ADULT) 11/19/2002 TD, Preservative Free 11/19/2002 TDAP (age 10 and older)(Boostrix) 06/28/2012, 09/07/2022 Varicella Zoster Vaccine (Adult) 01/12/2013 Zoster Vaccine Recombinant (Shingrix) 07/26/2019, 03/28/2020, 03/28/2020, 06/10/2020 Current Outpatient Medications Medication Sig Dispense Refill metroNIDAZOLE, topical, (METROCREAM) 0.75 % cream Apply topically to affected area 2 times a day. apply to affected area. 45 g 1 Cranberry-Vitamin C 16185-218 MG Oral Capsule Calcium Citrate-Vitamin D (CITRACAL/VITAMIN D) 250-200 MG-UNIT per tablet Take 1 Tab by mouth daily. (Patient taking differently: Take 2 Tablets by mouth in the morning.) 30 Tab 11 Glucosamine Sulfate 1000 MG CAPS DAILY IN THE MORNING Apple Cider Vinegar 188 MG Oral Capsule Take by mouth. Vitamin D 50 MCG (2000 UT) Oral Capsule Take 2,000 Units by mouth daily. Triamcinolone Acetonide 0.5 % External Cream Apply topically to affected area 4 times a day. To affected area for one week 60 g 0 hydroCHLOROthiazide 25 MG Oral Tablet (Hydrodiuril) Take two days per week and as needed for edema 100 Tablet 3 Nystatin 608832 UNIT/GM External Ointment Apply topically to affected area 2 times a day. To affacted area for two weeks. 30 g 2 Pantoprazole Sodium 40 MG Oral Tablet Delayed Release (Protonix) Take 1 Tablet by mouth in the morning. 90 Tablet 3 Pravastatin Sodium 20 MG Oral Tablet (Pravachol) TAKE 1 TABLET DAILY 90 Tablet 3 Lisinopril 5 MG Oral Tablet (Prinivil) Take 1 Tablet by mouth in the morning. 90 Tablet 1 Metoprolol Succinate ER 25 MG Oral Tablet Extended Release 24 Hour (toPROL XL) Take 0.5 Tablets by mouth in the morning and 0.5 Tablets before bedtime. 90 Tablet 3 Magnesium 250 MG Oral Tablet Take 1 Tablet by mouth in the morning. Turmeric Curcumin 5-1000 MG Oral Capsule Take by mouth. Hair Skin & Nails Advanced Oral Tablet Take by mouth. Probiotic Daily Oral Capsule Take 1 Capsule by mouth in the morning. Juice Plus Fibre Oral Liquid Take by mouth. denosumab (PROLIA) 60 MG/ML injection Inject 60 mg under the skin every 6 months. No current facility-administered medications for this visit. Patient Active Problem List Diagnosis ADVANCE DIRECTIVE INFORMATION Other osteoporosis without current pathological fracture HTN, goal below 140/90 BMI 35-39 ISOLATED (SEE ACTUAL BMI) Hyperlipidemia with target LDL less than 130 Aspirin contraindicated Personal history of malignant neoplasm of breast Senile osteoporosis Prediabetes Medication Compliance: Patient is able to obtain all of her medications? Yes Patient takes medications as prescribed? Yes Patient manages own medications: Yes Patient uses a pill box? No Dental Exam: Yes: Every 6 Months Eye Screening: Yes: Every year Are you having trouble with hearing? Yes Do you use an assistive device to help your hearing? Yes Exercise Screening: does not exercise regularly Nutrition Assessment: Eats a balanced diet Pain Screening: Are you having any pain? No Sleep Screening Tool 'STOP': Do you snore? No Do you feel fatigued during the day? No Do you wake up feeling like you haven't slept? No Have you been told you stop breathing at night? No Do you gasp for air or choke while sleeping? No Have you been told you have Sleep Apnea? No Do you have high blood pressure or are on medication(s) to control high blood pressure? Yes SCORE: If you check YES to two or more questions, make a referral for Obstructive Sleep Apnea Patient and Caregiver Support System: Patient lives with a spouse Means of Transportation: Drives. Not a concern. Patient lives in Two Story - How many stairs: 17 steps with a railing to the 2nd floor and 11 stepsto the 2nd floor with a railing Community Resources: Not Applicable Functional Status and ADL Skills: Has patient ever had an amputation? No Functional Assessment: 100- Normal, no complaints, no evidence of disease Ambulation: Patient ambulates without assistive device. Independent Dressing: Gets clothes and dresses without any assistance: Independent Able to move freely in chair or bed including turning over: Independent Repositioning (bed or chair): Not applicable Transfers: Independent Toileting: Goes to bathroom, uses toilet, arranges clothes and returns without any assistance: Independent Toileting: continent of bladder and continent of bowel Feeding: Self Bathing: Self; tub/shower Requires none assistance with ADLs. Instrumental ADL's: Shopping: Independent Housekeeping: Independent Handling Finances: Independent DME Vendor Name: Not Applicable Fall Risk Assessment: Can the patient demonstrate that she can stand from a sitting position? Yes Has the patient had a fall within the last 6 months? No Does the patient have a problem with her gait or balance? No Does the patient take 4 or more prescription medicines? Yes Does the patient use sedatives or narcotics? No Fall Risk Factors Present: Uses more than 4 medications Older than age 70 Orv-Ka-zbo-Go Test: Time began at 1000. Patient stood from sitting position and walked approximately 10 feet, returned and sat down. Total time for tqh-qz-vne-go test was 10 seconds. Qlz-Yi-dky-Go Test completed? Yes Gender Specific Preventative Plan: Health Maintenance Topic Date Due COVID-19 Vaccine ( season) 2023 *NEPHROLOGY REFERRAL DUE TO RESISTANT HTN Never done DXA Scan 06/09/2024 HbA1c 07/29/2024 GFR 09/27/2024 Depression Screening 11/08/2024 Albumin/Creatinine Ratio 01/28/2025 Colonoscopy 02/12/2026 DTaP,Tdap,and Td Vaccines (3 - Td or Tdap) 09/07/2032 VITAMIN D LEVEL ONCE IN A LIFETIME-USE SMARTSET# [id number] Completed Influenza Vaccine (FLU shot) Completed Zoster Vaccines Completed Pneumococcal Vaccine: 65+ Years Completed Hepatitis B Aged Out MENINGOCOCCAL (MENACTRA/MENVEO) Aged Out GARDASIL-HPV IMMUNIZATION SERIES Aged Out RETIRED - COLONOSCOPY-EVERY 5 YRS AGES 18-100 Discontinued Follow Up/ Referrals/Handouts: No further action needed Routine general medical examination at a health care facility (Primary) Risk and functional assessment AWV completed today Senile osteoporosis -continue following with Rheumatology Prediabetes -continue following with pcp Hemoglobin AIC Results: Lab Results Component Value Date/Time HEMOGLOBIN A1C - [facility] 5.9 (H) 07/29/2023 08:58 AM HEMOGLOBIN A1C - [facility] 5.6 02/03/2023 07:27 AM HEMOGLOBIN A1C - [facility] 5.5 01/28/2022 01:24 PM HEMOGLOBIN A1C - [facility] 5.8 (H) 07/10/2019 11:46 AM HEMOGLOBIN A1C - [facility] 5.4 11/11/2015 10:09 AM HEMOGLOBIN A1C - [facility] 5.6 02/16/2012 07:58 AM Personal history of malignant neoplasm of breast -continue yearly mammograms Hyperlipidemia with target LDL less than 130 - Med reconciliation completed and compliance discussed. - pt to continue present medications. Lipid Panel Results: Results for orders placed or performed in visit on 07/29/20 LIPID PANEL WITHOUT DIRECT LDL Result Value Ref Range Triglycerides 66 <=174 mg/dL Cholesterol 182 <200 mg/dL HDL Cholesterol 74 >49 mg/dL Non-HDL Cholesterol 108 <=159 mg/dL LDL Cholesterol 95 <=129 mg/dL Results for orders placed or performed in visit on 07/29/23 LIPID PANEL WITH DIRECT LDL IF TG IS HIGH Result Value Ref Range Triglycerides 59 <=174 mg/dL Cholesterol 197 <200 mg/dL HDL Cholesterol 80 >49 mg/dL Non-HDL Cholesterol 117 <=159 mg/dL LDL Cholesterol 105 <=129 mg/dL HTN, goal below 140/90 - Med reconciliation completed and compliance discussed. - pt to continue present medications. BP Readings from Last 3 Encounters: 11/09/23 134/70 10/06/23 152/80 10/05/23 156/90 BMI 35-39 ISOLATED (SEE ACTUAL BMI) -start working on exercising now that the weather is nice again BMI Readings from Last 3 Encounters: 11/09/23 35.72 kg/m 10/06/23 34.94 kg/m 08/11/23 33.42 kg/m Follow Up: Return in 1 year (on 11/08/2024) for 12 month Subsequent Adult Wellness Visit. | For: 12 month Subsequent Adult Wellness Visit | Check-out note: 12 month Subsequent Adult Wellness Visit Would patient like to schedule next AWV visit? Yes Alexa Real RN AD8 Dementia Screening Interview Person answering questions: patient Remember, "Yes, a change" indicates that there has been a change in the last several years caused by cognitive (thinking and memory) problems 1. Problems with judgement (eg: problems making decisions, bad financial decisions, problems with thinking). No (0) 2. Less interest in hobbies/activities. No (0) 3. Repeats the same things over and over (questions, stories, or statements). No (0) 4. Trouble learning how to use a tool, appliance, or gadget (eg: VCR, computer, microwave, remote control). No (0) 5. Forgets correct month or year. No (0) 6. Trouble handling complicated financial affairs (eg: balancing checkbook, income taxes, paying bills). No (0) 7. Trouble remembering appointments. No (0) 8. Daily problems with thinking and/or memory. No (0) TOTAL AD8: 0 - AD8 Dementia Screening Score The final score is a sum of the number items marked "Yes, A Change". 0 - 1: Normal cognition; 2 or greater: Cognitive impairments is likely to be present - further testing required documented in this encounter Miscellaneous Notes * Pt Handout (on AVS) - Alexa Real RN - 11/09/2023 10:25 AM EDT 71690 Preventing Falls: How to Prepare and What to Do Falling is not something you want to think about. But it can make a big difference to plan ahead. If you're prepared, you'll know how to get help. And you'll be less likely to panic if you fall. Thismeans you'll be able to do what's needed to get help right away. How to prepare Have someone check on you daily, either in person or by phone. Keep a list of emergency numbers near the phone. Always have a way to call for help. Keep a cell phone with you at all times. Or talk with your healthcare provider about how to set up a home monitoring service. This involves wearing a small device around your neck or wrist. If you fall, you can press the button on the device. This alerts emergency responders. Talk with your healthcare provider about an exercise program that's right for you. Regular exercise may reduce the risk of falling and the risk for injury related to a fall. Have good lighting in your home. Don't use throw rugs, because they can raise your risk of tripping and falling. Add grab bars in the bathroom to help reduce the risk of falling. Small changes canmake your home safer. Talk with your healthcare provider about making your home safer. What to do if you fall Above all, try to stay calm: If you start to fall, try to relax your body. This will reduce the impact of the fall. After you fall, press your monitor button, or use your phone to call for help. Don't davidson to get up. First, make sure you're not hurt. Roll onto your side, then crawl to a chair. Pull yourself up onto the chair slowly. Get checked if you struck your head, lost consciousness, were confused afterward, or have any other concerns for injury. Tell your healthcare provider that you fell. They can check you for injuries as needed, try to determine what made you fall, and help prevent you from falling again. A note to family and friends If you're with a loved one when they start to fall, don't try to stop the fall. Ease the person to the floor carefully, so neither of you gets hurt. Don't leave the person alone. And don't try to move them, especially if they may have hurt their head or neck. Check for injuries. If help is needed right away, call 911. Last Reviewed Date: 05/13/202219996955-3308 [employer]. All rights reserved. This information is not intended as a substitute for professional medical care. Always follow your healthcare professional's instructions. * Pt Handout (on AVS) - Alexa Real RN - 11/09/2023 10:24 AM EDT Images from the original note were not included. 78562 Exercises to Prevent Falls Certain types of exercises may help make you less likely to fall. Try the ones below or do other exercises that your healthcare provider suggests. Depending on your health, you may need to start slowly. Don't let that stop you. Even small amountsof exercise can help you. Talk with your healthcare provider before starting any exercise program. Improve balance Many types of exercise can help improve balance. Abida chi and yoga are good examples. Here's anotherone to try. You can do it anytime and almost anywhere. Stand next to a counter or solid support. Push yourself up onto your tiptoes. Hold for 5 seconds. If you start to lose your balance, hold on to the counter. Rest and repeat 5 times. Work up to holding for 20 to 30 seconds, if you can. Increase flexibility Being more flexible makes it easier for you to move around safely. Try exercises like the seatedhamstring stretch. o Sit in a chair and put one foot on a stool. o Straighten your leg and reach with both hands down either side of your leg. Reach as far down your leg as you can. o Hold for about 20 seconds. o Go back to the starting position. Then repeat 5 times. Switch legs. o o Build strength o Resistance exercises help build strength. You can do them without equipment. Or you can use weights, elastic bands, or special machines. One such exercise is called the biceps curl. You can hold a 1-pound weight or even a can of soup. Do this exercise at least 3 times a week. Strive for every day. Sit up straight in a chair. Keep your elbow close to your body and your wrist straight. Bend your arm, moving your hand up to your shoulder. Then slowly lower your arm. Repeat 5 times. Switch to the other arm. Build your staying power Aerobic exercises make your heart and lungs stronger so you can keep moving longer. Walking and swimming are 2 of the best types of exercises you can do. Using a stationary bike is great, too. Find an aerobic exercise that you enjoy. Start slowly and build up. Even 5 minutes is helpful. Aim for a goal of 30 minutes, at least 3 times a week. You don't have to do 30 minutes in 1 session. Break it up and walk a little throughout the day. Starting out safely and slowly Start easy. Slowly work up to doing more. Talk with your healthcare provider about the best exercises for you. Call senior centers or health clubs about exercise programs. If needed, have a family member watch you walk every so often to check your stability. Exercise with a friend. Choose an activity you both enjoy. Be sure to gently warm up and cool down. Drink fluids, such as water, to stay hydrated. If your provider recommended that you limit fluids, ask them how much is OK to drink while exercising. Consider abida chi or yoga to strengthen your balance. Try exercises that you can do anytime, anywhere. Here are 2 examples. Have someone with you whenyou first try these: o Practice walking by placing one foot right in front of the other. o Stand up and sit down 10 times. Repeat this throughout the day. Last Reviewed Date: 04/13/202219991628-2827 [employer]. All rights reserved. This information is not intended as a substitute for professional medical care. Always follow your healthcare professional's instructions. documented in this encounter Plan of Treatment Upcoming Encounters Date Type Department Care Team (Late st Contact Info) Description 12/13/2023 9:00 AM EDT Office Visit Cardiology, [facility] [place] [address] [id number] Pablo Pace MD [address] [address] 12/23/2023 2:30 PM EDT Cardiac Studies Cardiac Studies, [facility] [place] [address] [id number] 02/09/2024 8:20 AM EDT Office Visit General Internal Medicine [facility] [place] [address] [facility] [place] [address] Janell Cain MD [address] [facility] [place] [address] [address] 04/03/2024 10:00 AM EDT Office Visit [address] [place] [address] Liya Meade PA-C [address] [place] [address] [place] [address] 04/10/2024 8:30 AM EDT Office Visit Rheumatology [facility] [address] [place] [address] Espinoza Lazo CRNP [address] [place] [address] 04/11/2024 11:00 AM EDT Office Visit General Internal Medicine [facility] [place] [address] [facility] [place] [address] Janell Cain MD [address] [facility] [place] [address] Health Maintenance Due Date Last Done Comments COVID-19 Vaccine ( season) 2023 03/30/2023, 03/25/2022, 09/17/2021, Additional history exists *NEPHROLOGY REFERRAL DUE TO RESISTANT HTN 10/08/2023 DXA Scan 06/09/2024 06/09/2022, 05/14, 05/30/2018, Additional history exists HbA1c 07/29/2024 07/29/2023, 01/12, 01/28/2022, Additional history exists GFR 09/27/2024 09/28/2023, 07/14, 02/03/2023, Additional history exists Depression Screening 11/08/2024 11/09/2023, 11/03/19 24 Albumin/Creatinine Ratio 01/28/2025 022, 07/10/2019, 08/25/2017, Additional history exists Colonoscopy 02/12/2026 02/12/2021, 07/2020, 01/07/2016, Additional history exists DTaP,Tdap,and Td Vaccines (3 - Td or Tdap) 09/07/2032 09/07/2022, 06/28/2012, 11/19/2002, Additional history exists Pneumococcal Vaccine: 65+ Years Completed 11/28/2015, 01/05/2010 Zoster Vaccines Completed 06/10/2020, 03/13, 03/28/2020, Additional history exists RETIRED - COLONOSCOPY-EVERY 5 YRS AGES 18-100 Discontinued 02/12/2021, 02/12/2021, 01/07/2016, Additional history exists Influenza Vaccine (FLU shot) Completed 03/30/2023, 03/25/2022, 03/25/2022, Additional history exists VITAMIN D LEVEL ONCE IN A LIFETIME-USE SMARTSET# [id number] Completed 09/28/2023, 03/30/2023, 01/26/2021, Additional history exists GARDASIL-HPV IMMUNIZATION SERIES Aged Out No longer eligible based on patient's age to complete this topic Hepatitis B Aged Out No longer eligi ble based on patient's age to complete this topic MENINGOCOCCAL (MENACTRA/MENVEO) Aged Out No longer eligible based on patient's age to complete this topic documented as of this encounter Medical Devices Not on filedocumented as of this encounter Visit Diagnoses Diagnosis Routine general medical examination at a health care facility- Primary Risk and functional assessment Screening for unspecified condition Senile osteoporosis Prediabetes Other abnormal glucose Personal history of malignant neoplasm of breast Hyperlipidemia with target LDL less than 130 Other and unspecified hyperlipidemia HTN, goal below 140/90 Unspecified essential hypertension BMI 35-39 ISOLATED (SEE ACTUAL BMI) Morbid obesity documented in this encounter Care Teams Field Reviewer Relationship Specialty Start Date End Date Janell Cain MD [address] [place] [address] PCP - General 10/28/08 documented as of this encounter
--- OUTSIDE RECORDS SUMMARY | 2023-11-10 22:52 | External Medical Summary | Summary of Care ---
Author Name Unknown Organization [facility] Address [address] [place] [address] Phone [phone] Care Team Providers Care Intelligence Chief Name Role Phone Janell Cain MD Primary Care Provider + Reason for Visit * Reason Onset Date Comments Order Request 09/23/2023 prolia Encounter Details Date Type Department Care Team (Late st Contact Info) Description 09/23/2023 Telephone Rheumatology [facility] [address] [place] [address] Espinoza Lazo CRNP [address] [place] [address] Order Request (prolia) Allergies Active Allergy Reactions Criticality Noted Date Comments Aspirin 11/28/2015 bleeding Bleeding-stomach ulcers documented as of this encounter (statuses as of 10/10/2023) Medications Medication Sig Dispensed Refills Start Date End Date Status DAILY MULTIPLE VITAMINS PO TABS 1 TABLET DAILY 0 05/28/2014 Acti ve metroNIDAZOLE, topical, (METROCREAM) 0.75 % creamIndications :Rosacea Apply topically to affected area 2 times a day. apply to affected area. 45 g 1 08/31/2017 Active Cranberry-Vitami n C 53019-398 MG Oral Capsule 0 02/20/2018 Active Calcium Citrate-Vitamin D (CITRACAL/VITAMI N D) 250-200 MG-UNIT per tablet Take 1 Tab by mouth daily. 30 Tab 11 06/01/2018 Active Additional Information Patient taking differently: 2 TabletOral Daily(AM), Informant: Patient, Reported on 08/03/2022 denosumab (PROLIA) 60 MG/ML injection Inject 60 mg under the skin every 6 months. 0 Active Glucosamine Sulfate 1000 MG CAPS DAILY IN THE MORNING 0 08/22/2018 Active Magnesium Oxide 400 MG Tablet DAILY 0 08/25/2018 Active Apple Cider Vinegar 188 MG Oral Capsule Take by mouth. 0 Active Vitamin D 50 MCG (2000 UT) Oral Capsule Take 2,000 Units by mouth daily. 0 Active Triamcinolone Acetonide 0.5 % External CreamIndications :Insect bite of left upper arm with local reaction, initial encounter Apply topically to affected area 4 times a day. To affected area for one week 60 g 0 12/21/2020 Active hydroCHLOROthiaz aj 25 MG Oral Tablet (Hydrodiuril)Ind ications:HTN, goal below 140/90,Contusion of left chest wall, initial encounter Take two days per week and as needed for edema 100 Tablet 3 10/13/2022 Active Nystatin 898002 UNIT/GM External OintmentIndicati ons:Candidal intertrigo Apply topically [...] Take 0.5 Tablets by mouth in the morning. 45 Tablet 3 06/20/2023 4 Discontinue d(Medicatio n/Dose Changed) Hospital, Clinic, or Other Facility Administered Medication Ordered Dose Route Frequency Start Date End Date Status Denosumab (Prolia) subcut inj 60 mgIndications:Senile osteoporosis 60 mg SC ONCE 10/05/2023 10/05/2023 Ended documented as of this encounter (statuses as of 10/10/2023) Active Problems Problem Noted Date Diagnosed Date [...] as of this encounter (statuses as of 10/10/2023) Resolved Problems Problem Noted Date Diagnosed Date Resolved Date Malignant neoplasm of lower- inner quadrant of female breast 02/08/2005 02/24/2018 Overview: 1992 HTN, goal below 140/90 11/30 documented as of this encounter (statuses as of 10/10/2023) Immunizations Name Administration Dates Next Due COVID-19 mRNA, LNP-s, No Pre serve, 2-Dose Series ([place]) 09/17/2021,04/04/2021,08/25/2020,07/21 Covid-19, Mrna, Lnp-s, Pf, B ivalent, 30 Mcg, IM, 12 yrs and above ([place]) 03/25/2022 H1N1 2009 Influenza, IM 07/03/2009 Pneumococcal Conjugate Vacc, 13 Valent (Prevnar) 11/28/2015 Pneumococcal Conjugate Vacci ne, 7 Valent 08/09/2005 Pneumococcal Polysaccharide PPV23 (Pneumovax) 01/05/2010 Seasonal Influenza Virus Vac cine, Unspecified Formulation 03/25/2022,05/26/2021,03/20/2020,03/18,04/16/2019,04/17/2018,04/13/2017 ,06/01/2016,03/08/2014,05/11/2013,03/13,04/08/2011,03/24/2010, 9,04/27/2008,04/19/2006 Seasonal Influenza, Quad, Na ronal (Flumist) 04/17/2018 Seasonal Influenza, Quadrivalent, ID 05/26/2021, 03/18/2020 Seasonal Influenza, Quadriva lent, No Preserve, IM 04/13/2017,06/01/2016,04/20/2015 Seasonal Influenza, Split, I IV3, With Preserve, Inj 03/08/2014,05/11/2013,03/28/2012,04/08,03/24/2010,04/27/2009,04/27/2008 ,04/19/2006 Seasonal Influenza, Trivalen t, Adjuvanted, 65+ yrs 03/20/2020,04/16/2019 Seasonal Influenza, Trivalen t, High Dose, No Preserve, IM 03/25/2022 TD - Tetanus/Diptheria (ADULT) 11/19/2002 TDAP (age 10 and older)(Boostrix) 09/07/2022, Varicella Zoster Vaccine (Adult) 01/12/2013 Zoster Vaccine Recombinant (Shingrix) ,03/28/2020,03/28/2020,07/26 documented as of this encounter Social History Tobacco Use Types Packs/Day Years Used Date Smoking Tobacco: Former Smokeless Tobacco: Never Comments:>30 yrs. ago quit / only smoked [...] money to buy more. Never true 11/03/19 23 Within the past 12 months, t he [...] on file documented as of this encounter Miscellaneous Notes * Telephone Encounter - Fany Bhat LPN - 10/10/2023 3:51 PM EDT Pt had her labs done on 09/28/23 * Telephone Encounter - Espinoza Lazo CRNP - 09/23/2023 3:23 PM EDT Please note patient needs updated labs before next Prolia in March. Please advise patient to get updated labs before fall appointment. Orders placed at this time. Thank you, [facility] Rheumatology Department * Telephone Encounter - Brook Bhat LPN - 09/23/2023 3:02 PM EDT Chart reviewed and labs noted to be within normal limits. Patient has been seen within the last 12 months by a Rheumatology provider. Prolia authorization approved and updated in referral. Last injection has been > 6 months and 1 day. CAM orders pended for signature. documented in this encounter Plan of Treatment Upcoming Encounters Date Type Department Care Team (Late st Contact Info) Description 11/08/2023 11:00 AM EDT Nurse Only Ancillary [facility] [address] [place] [address] Ju[place], Nurse Annual Wellness [facility] [address] [place] [address] 12/13/2023 9:00 AM EDT [facility] [address] [address] Pablo Pace MD [address] [place] [address] 12/22/2023 10:20 AM EDT Office Visit Otolaryngology [facility] [address] [place] [address] Mar Singh PA-C [address] [place] [address] 12/23/2023 2:30 PM EDT Cardiac Studies Cardiac Studies, [facility] [address] [place] [address] 02/09/2024 8:20 AM EDT Office Visit General Internal Medicine [facility] [address] [place] [address] [address] Janell Cain MD 200 [facility] [place] [address] 04/03/2024 10:00 AM EDT Office Visit [address] [place] [address] Liya Meade PA-C [address] [place] [address] [place] [address] 04/10/2024 8:30 AM EDT Office Visit Rheumatology [place] [address] [facility] [place] [address] Espinoza Lazo CRNP [facility]0 [address] [facility] [place] [address] 04/11/2024 11:00 AM EDT Office Visit General Internal Medicine [facility] [address] [place] [address] [address] Janell Cain MD 200 [facility] [place] [address] Health Maintenance Due Date Last Done Comments *NEPHROLOGY REFERRAL DUE TO RESISTANT HTN 10/08/2023 Depression Screening 11/03/2023 11/02/2022 DXA Scan 06/09/2024 06/09/2022, 05/14, 05/30/2018, Additional history exists HbA1c 07/29/2024 07/29/2023, 01/12, 01/28/2022, Additional history exists GFR 09/27/2024 09/28/2023, 07/14, 02/03/2023, Additional history exists Albumin/Creatinine Ratio 01/28/2025 022, 07/10/2019, 08/25/2017, Additional history exists Colonoscopy 02/12/2026 02/12/2021, 07/2020, 01/07/2016, Additional history exists DTaP,Tdap,and Td Vaccines (3 - Td or Tdap) 09/07/2032 09/07/2022, 06/28/2012, 11/19/2002, Additional history exists Pneumococcal Vaccine: 65+ Years Completed 11/28/2015, 01/05/2010 Zoster Vaccines Completed 06/10/2020, 03/13, 03/28/2020, Additional history exists RETIRED - COLONOSCOPY-EVERY 5 YRS AGES 18-100 Discontinued 02/12/2021, 02/12/2021, 01/07/2016, Additional history exists COVID-19 Vaccine Completed 03/30/2023, , 09/17/2021, Additional history exists Influenza Vaccine (FLU shot) Completed 03/30/2023, 03/25/2022, 03/25/2022, Additional history exists VITAMIN D LEVEL ONCE IN A LIFETIME-USE SMARTSET# [id number] Completed 09/28/2023, 03/30/2023, 01/26/2021, Additional history exists [...] Not on filedocumented as of this encounter Results * CREATININE (09/28/2023 9:52 AM EDT) Creatinine 0.8 0.5 - 1.0 mg/dL 09/28/2023 12:00 PM EDT [facility] 56-02 Estimated Glomerular Filtration Rate 74 >=60 mL/min 09/28/2023 12:00 PM EDT [facility] [place] [address] Comment:eGFR is calculated b ased on the CKD-EPI 2020 equation Blood Venous blood specimen / Unknown Venipuncture / Unknown 09/28/2023 9:52 AM EDT 09/28/2023 9:52 AM EDT Espinoza MALONEY LAB BLOOD ORDERAB LES Performing Organization Address City/[facility] Co de Phone Number [place] [address] [address] [place] [address] * CALCIUM (09/28/2023 9:52 AM EDT) Calcium 9.8 8.4 - 10.2 mg/dL 09/28/2023 12:00 PM EDT [facility] [place] [address] Blood Venous blood specimen / Unknown Venipuncture / Unknown 09/28/2023 9:52 AM EDT 09/28/2023 9:52 AM EDT Espinoza MALONEY LAB BLOOD ORDERAB LES Performing Organization Address [facility] de Phone Number [place] [address] [address] [place] [address] * 25-HYDROXY VITAMIN D (09/28/2023 9:52 AM EDT) 25-Hydroxy Vitamin D 42 >19 ng/mL 09/28/2023 7:53 PM EDT LABORATORY [facility] Blood Venous blood specimen / Unknown Venipuncture / Unknown 09/28/2023 9:52 AM EDT 09/28/2023 9:52 AM EDT Narrative LABORATORY [facility] - 09/28/2023 7:53 PM EDT Deficient: <20 ng/mL Insufficient: 20-29 ng/mL Recommended/Optimum:30-50 ng/mL Vitamin D intoxication is rare. If suspicious of Vitamin D toxicity, evaluation of serum Calcium and PTH is recommended. Espinoza MALONEY LAB BLOOD ORDERAB LES LABORATORY [facility] [address] [place] [facility] [place] [address] documented in this encounter Visit Diagnoses Diagnosis Senile osteoporosis- Primary documented in this encounter Care Teams Intelligence Chief Relationship Specialty Start Date End Date Janell Cain MD 200 [facility] [place] [address] PCP - General 10/28/08 documented as of this encounter
--- OUTSIDE RECORDS SUMMARY | 2023-11-10 22:52 | External Medical Summary | Summary of Care ---
Author Name Unknown Organization [facility] Address [address] [place] [address] Phone [phone] Care Team Providers Care Public Health Veterinarian Name Role Phone Janell Cain MD Primary Care Provider + Reason for Visit * Reason Onset Date Comments Appointment 10/06/2023 Encounter Details Date Type Department Care Team (Late st Contact Info) Description 10/06/2023 Telephone General Internal Medicine [facility] [address] [place] [address] Janell Cain MD [address] [place] [address] Appointment Allergies Active Allergy Reactions Criticality Noted Date Comments Aspirin 11/28/2015 bleeding Bleeding-stomach ulcers documented as of this encounter (statuses as of 10/06/2023) Medications Medication Sig Dispensed Refills Start Date End Date Status DAILY MULTIPLE VITAMINS PO TABS 1 TABLET DAILY 0 05/28/2014 Acti ve metroNIDAZOLE, topical, (METROCREAM) 0.75 % creamIndications:R osacea Apply topically to affected area 2 times a day. apply to affected area. 45 g 1 08/31/2017 Active Cranberry-Vitamin C 61757-308 MG Oral Capsule 0 02/20/2018 Active Calcium Citrate-Vitamin D (CITRACAL/VITAMIN D) 250-200 MG-UNIT [...] 0 Active Triamcinolone Acetonide 0.5 % External CreamIndications:I nsect bite of left upper arm with local reaction, initial encounter Apply topically to affected area 4 times a day. To affected area for one week 60 g 0 12/21/2020 Active hydroCHLOROthiazid e 25 MG Oral Tablet (Hydrodiuril)Indic ations:HTN, goal below 140/90,Contusion of left chest wall, initial encounter Take two days per week and as needed for edema 100 Tablet 3 10/13/2022 Active Nystatin 141714 UNIT/GM External OintmentIndication s:Candidal intertrigo Apply topically to affected area 2 times a day. To affacted area for two weeks. 30 g 2 12/01/2022 Active Pantoprazole Sodium 40 MG Oral Tablet Delayed Release (Protonix)Indicati ons:GERD (gastroesophageal reflux disease) Take 1 Tablet by mouth in the morning. 90 Tablet 3 12/16/2022 Active Pravastatin Sodium 20 MG Oral Tablet (Pravachol) TAKE 1 TABLET DAILY 90 Tablet 3 04/04/2023 Active Lisinopril 5 MG Oral Tablet (Prinivil) Take 1 Tablet by mouth in the morning. 90 Tablet 1 05/26/2023 Active Metoprolol Succinate ER 25 MG Oral Tablet Extended Release 24 Hour (toPROL XL)Indications:HTN , goal below 140/90 Take 0.5 Tablets by mouth in the morning and 0.5 Tablets before bedtime. 90 Tablet 3 10/06/2023 Active documented as of this encounter (statuses as of 10/06/2023) Active Problems Problem Noted Date Diagnosed Date [...] as of this encounter (statuses as of 10/06/2023) Resolved Problems Problem Noted Date Diagnosed Date Resolved Date Malignant neoplasm of lower- inner quadrant of female breast 02/08/2005 02/24/2018 Overview: 1992 HTN, goal below 140/90 11/30 documented as of this encounter (statuses as of 10/06/2023) Immunizations Name Administration Dates Next Due COVID-19 mRNA, LNP-s, No Pre serve, 2-Dose Series (dotloop) 09/17/2021,04/04/2021,08/25/2020,07/21 Covid-19, Mrna, Lnp-s, Pf, B ivalent, 30 Mcg, IM, 12 yrs and above (dotloop) 03/25/2022 H1N1 2009 Influenza, IM 07/03/2009 Pneumococcal [...] t, High Dose, No Preserve, IM 03/25/2022 TDAP (age 10 and older)(Boostrix) 09/07/2022, Varicella [...] encounter Miscellaneous Notes * Telephone Encounter - Osiel Aguilar OSA - 10/06/2023 2:14 PM EDT Procedure: CARDIOLOGY REFERRAL OP Status: Needs Scheduling (Mgum-dk-Wuzerqh Pending) Requested appt date: Authorizing: Janell Cain MD in GEN INT [facility] POD3 Referral: [id number] (Pending Review) Priority: Within 30 days (routine) Diagnosis: SOB (shortness of breath) [R06.02] Please assist patient with scheduling appointment within [address] Pace documented in this encounter Plan of Treatment Upcoming Encounters Date Type Department Care Team (Late st Contact Info) Description 11/08/2023 11:00 AM EDT Nurse Only Ancillary [facility] 132 [facility] [place] [address] [facility], Nurse Annual Wellness [facility] 132 [facility] [address] 12/22/2023 10:20 AM EDT Office Visit [facility] [place] 132 [facility] [place] [address] Mar Singh PA-C 132 [facility] [place] [address] 02/09/2024 8:20 AM EDT Office Visit General Internal Medicine [facility] [address] [place] [address] Janell Cain MD 200 [facility] [place] [address] 04/03/2024 10:00 AM EDT Office Visit Dermatology, [address] [place] [address] Liya Meade PA-C [address] [place] [address] [place] [address] 04/10/2024 8:30 AM EDT Office Visit Rheumatology [facility] [address] [facility] [place] [address] Espinoza Lazo CRNP [facility]0 [facility] [place] [address] 04/11/2024 11:00 AM EDT Office Visit General Internal Medicine [facility] [address] [place] [address] Janell Cain MD [address] [facility] [place] [address] Health Maintenance Due Date Last Done Comments Depression Screening 11/03/2023 11/02/2022 DXA Scan 06/09/2024 06/09/2022, 05/14, 05/30/2018, Additional history exists HbA1c 07/29/2024 07/29/2023, 01/12, 01/28/2022, Additional history exists GFR 09/27/2024 09/28/2023, 07/14, 02/03/2023, Additional history exists Albumin/Creatinine Ratio 01/28/2025 022, 07/10/2019, 08/25/2017, Additional history exists COLONOSCOPY-EVERY 5 YRS AGES 18-100 02/12/2026 02/12/2021, 02/12/2021, 01/07/2016, Additional history exists DTaP,Tdap,and Td Vaccines (3 - Td or Tdap) 09/07/2032 09/07/2022, 06/28/2012, 11/19/2002, Additional history exists Pneumococcal Vaccine: 65+ Years Completed 11/28/2015, 01/05/2010 Zoster Vaccines Completed 06/10/2020, 03/13, 03/28/2020, Additional history exists COVID-19 Vaccine Completed 03/30/2023, , 09/17/2021, Additional history exists Influenza Vaccine (FLU shot) Completed , 03/25/2022, 03/25/2022, Additional history exists VITAMIN D LEVEL ONCE IN A LIFETIME-USE SMARTSET# [id number] Completed 09/28/2023, 03/30/2023, 01/26/2021, Additional history exists [...] Not on filedocumented as of this encounter Care Teams Public Health Veterinarian Relationship Specialty Start Date End Date Janell Cain MD 200 [facility] [place] [address] PCP - General 10/28/08 documented as of this encounter
--- OUTSIDE RECORDS SUMMARY | 2023-11-10 22:52 | External Medical Summary | Summary of Care ---
Author Name Unknown Organization [facility] Address [address] [place] [address] Phone [phone] Care Team Providers Care X Ray Equipment Tester Name Role Phone Janell Cain MD Primary Care Provider + Reason for Visit * Reason Onset Date Comments Appointment 10/06/2023 Encounter Details Date Type Department Care Team (Late st Contact Info) Description 10/06/2023 Telephone General Internal Medicine [facility] [address] [place] [address] Janell Cain MD [address] [place] [address] Appointment Allergies Active Allergy Reactions Criticality Noted [...] 45 g 1 08/31/2017 Active Cranberry-Vitamin C 45308-251 MG Oral Capsule 0 02/20/2018 Active Calcium [...] edema 100 Tablet 3 10/13/2022 Active Nystatin 439382 UNIT/GM External OintmentIndication s:Candidal intertrigo Apply topically [...] mRNA, LNP-s, No Pre serve, 2-Dose Series (Optisort) 09/17/2021,04/04/2021,08/25/2020,07/21 Covid-19, Mrna, Lnp-s, Pf, B ivalent, 30 Mcg, IM, 12 yrs and above (Optisort) 03/25/2022 H1N1 2009 Influenza, IM 07/03/2009 Pneumococcal [...] encounter Miscellaneous Notes * Telephone Encounter - Sukhwinder Copeland, EMILY - 10/10/2023 11:29 AM EDT Called patient she has a ZIO patch coming for 14 days, sending back on October 19. Patient is now rescheduled on: Tuesday Arrive by 8:45 AM Appt at 9:00 AM (30 min) Patient is aware of the date and time. * Telephone Encounter - Sukhwinder Copeland OSA - 10/10/2023 8:13 AM EDT Will call patient, set up for: Tuesday October 24, 2023 Arrive by 10:15 AM Appt at 10:30 AM (30 min) * Telephone Encounter - Sukhwinder Copeland OSA - 10/06/2023 3:08 PM EDT LM for patient to call back, currently do not have any openings for Dr. Pace within two weeks. * Telephone Encounter - Osiel Aguilar OSA - 10/06/2023 2:14 PM EDT Procedure: CARDIOLOGY REFERRAL OP Status: Needs Scheduling (Yjaj-of-Zobajpl Pending) Requested appt date: Authorizing: Janell Cain MD in [facility] POD3 Referral: [id number] (Pending Review) Priority: Within 30 days (routine) Diagnosis: SOB (shortness of breath) [R06.02] Please assist patient with scheduling appointment within [address] Pace documented in this encounter Plan of Treatment Upcoming Encounters Date Type Department Care Team (Late st Contact Info) Description 11/08/2023 11:00 AM EDT Nurse Only Ancillary [facility] [address] [place] [address] Ju[place], Nurse Annual Wellness [address] [place] [address] 12/13/2023 9:00 AM EDT Office Visit Cardiology, [place] [address] [place] [address] Pablo Pace MD [address] [place] [address] 12/22/2023 10:20 AM EDT Office Visit Otolaryngology [facility] 132 [facility] [place] [address] Mar Singh PA-C [facility] [place] [address] 12/23/2023 2:30 PM EDT Cardiac Studies Cardiac Studies, [facility] 132 [facility] [place] [address] 02/09/2024 8:20 AM EDT Office Visit General Internal Medicine [facility] [address] [place] [address] Janell Cain MD 200 [facility] [place] [address] 04/03/2024 10:00 AM EDT Office Visit [address] [address] Liya Meade PA-C [address] [place] [address] [place] [address] 04/10/2024 8:30 AM EDT Office Visit Rheumatology [place] [address] [facility] [place] [address] Espinoza Lazo CRNP [facility] [place] [address] 04/11/2024 11:00 AM EDT Office Visit General Internal Medicine [facility] [address] [place] [address] Janell Cain MD 200 [facility] [place] [address] Health Maintenance Due Date Last Done Comments [...] D LEVEL ONCE IN A LIFETIME-USE SMARTSET# [id number] Completed 09/28/2023, 03/30/2023, 01/26/2021, Additional history exists [...] filedocumented as of this encounter Care Teams X Ray Equipment Tester Relationship Specialty Start Date End Date Janell Cain MD [address] [place] [address], [place] [address] PCP - General 10/28/08 documented as of this encounter
--- OUTSIDE RECORDS SUMMARY | 2023-11-10 22:52 | External Medical Summary | Summary of Care ---
Author Name Unknown Organization [facility] Address [address] [place] [address] Phone [phone] Care Team Providers Care Material Handling Equipment Stevedore Name Role Phone Janell Cain MD Primary Care Provider + Encounter Details Date Type Department Care Team (Late st Contact Info) Description 11/09/2023 Orders Only General Internal Medicine [facility] 200 [facility] [place] [id number] Janell Cain MD 200 [place] [address] Encounter for screening mammogram for breast cancer* Allergies Active Allergy Reactions Criticality Noted Date Comments Aspirin 11/28/2015 bleeding Bleeding-stomach ulcers documented as of this encounter (statuses as of 11/09/2023) Medications Medication Sig Dispensed Refills Start Date End Date Status metroNIDAZOLE, topical, (METROCREAM) 0.75 % creamIndications:R osacea Apply topically to affected area 2 times a day. apply to affected area. 45 g 1 08/31/2017 Active Cranberry-Vitamin C 99517-880 MG Oral Capsule 02/20/2018 Active Calcium Citrate-Vitamin D (CITRACAL/VITAMIN D) [...] daily. Active Triamcinolone Acetonide 0.5 % External CreamIndications:I nsect bite of left upper arm with local reaction, initial encounter Apply topically to affected area 4 times a day. To affected area for one week 60 g 12/21/2020 Active hydroCHLOROthiazid e 25 MG Oral Tablet (Hydrodiuril)Indic ations:HTN, goal below 140/90,Contusion of left chest wall, initial encounter Take two days per week and as needed for edema 100 Tablet 3 10/13/2022 Active Nystatin 747318 UNIT/GM External OintmentIndication s:Candidal intertrigo Apply topically [...] 5-1000 MG Oral Capsule Take by mouth. Active Hair Skin & Nails Advanced Oral Tablet Take by mouth. Active Probiotic Daily Oral Capsule Take 1 Capsule by mouth in the morning. Active Juice Plus Fibre Oral Liquid Take by mouth. Active documented as of this encounter (statuses [...] mRNA, LNP-s, No Pre serve, 2-Dose Series ([employer]) 09/17/2021,04/04/2021,08/25/2020,07/21 COVID-19, MRNA-LNP, 23-24, P F, 30 MCG/0.3 mL, 12 YRS AND ABOVE, IM ([facility]) 03/30/2023 Covid-19, Mrna, Lnp-s, Pf, B ivalent, 30 Mcg, IM, 12 yrs and above ([employer]) 03/25/2022 H1N1 2009 Influenza, IM 07/03/2009 Pneumococcal Conjugate Vacc, 13 Valent (Prevnar) 11/28/2015 Pneumococcal Conjugate Vacci ne, 7 Valent 08/09/2005 Pneumococcal Polysaccharide PPV23 (Pneumovax) 01/05/2010 Seasonal Influenza Virus Vac cine, Unspecified Formulation 03/30/2023,03/25/2022,05/26/2021,03/20,03/18/2020,04/16/2019,04/17/2018 ,04/13/2017,06/01/2016,03/08/2014,04/14,03/28/2012,04/08/2011, 0,04/27/2009,04/27/2008,04/19/2006 Seasonal Influenza, Quad, Na ornal (Flumist) 04/17/2018 Seasonal Influenza, Quadrivalent, ID 05/26/2021, [...] on file documented as of this encounter Plan of Treatment Upcoming Encounters Date Type Department Care Team (Late st Contact Info) Description 12/13/2023 9:00 AM EDT Office Visit Cardiology, [facility] [address] [place] [address] Pablo Pace MD [address] [place] [address] 12/23/2023 2:30 PM EDT Cardiac Studies Cardiac Studies, [facility] [address] [place] [address] 02/09/2024 8:20 AM EDT Office Visit General Internal Medicine [facility] [address] [place] [address] Janell Cain MD [address] [place] [address] 04/03/2024 10:00 AM EDT Office Visit Dermatology[address] [place] [address] Liya Meade PA-C [address] [place] [address] [place] [address] 04/10/2024 8:30 AM EDT Office Visit Rheumatology [place] [id number] [facility] [place] [address] Espinoza Lazo CRNP [facility] [place] [address] 04/11/2024 11:00 AM EDT Office Visit General Internal Medicine [facility] [address] [place] [address] Janell Cain MD [address] [place] [place] [address] Scheduled Orders Name Type Priority Associated Diagnoses Orde r Schedule MAMMOGRAM SCREENING JAXON BILATERAL Medical Imaging Routine Encounter for screening mammogram for breast cancer Expected: 02/06/2024 (Approximate), Expires: 12/09/2024 Health Maintenance Due Date Last Done Comments COVID-19 Vaccine (2022-24 season) 2023 03/30/2023, 03/25/2022, 09/17/2021, Additional history [...] D LEVEL ONCE IN A LIFETIME-USE SMARTSET# [id number] Completed 09/28/2023, 03/30/2023, 01/26/2021, Additional history exists [...] as of this encounter Visit Diagnoses Diagnosis Encounter for screening mammogram for breast cancer- Primary documented in this encounter Care Teams Material Handling Equipment Stevedore Relationship Specialty Start Date End Date Janell Cain MD 200 [facility] [place] [address] PCP - General 10/28/08 documented as of this encounter
--- OUTSIDE RECORDS SUMMARY | 2023-11-10 22:52 | External Medical Summary | Summary of Care ---
Author Name Unknown Organization [facility] Address [address] [place] [address] Phone [phone] Care Team Providers Care Top Collar Maker Name Role Phone Janell Cain MD Primary Care Provider + Reason for Referral * Evaluate & Treat - Unlimited Visits (Within 30 days (routine)) - Pending Review Specialty Diagnoses / Procedures Referred By Contact Referred To Contact Cardiovascular Medicine / Cardiology Diagnoses SOB (shortness of breath) Janell Cain MD [address] [place] [address] Referral ID Status Reason Start Date Expiration Date Visits Requested Visits Authorized [id number] Pending Review Specialty Services Required 10/06/[phone] Question Answer Referral Priority Within 30 days (routine) Where should this appointment be scheduled? [facility] To which of the following clinics are you referring your patient? General Cardiology Clinic Comments Please eval for new sob with excertion, fatigue, palpitation. * Precert (Within 10 days (routine)) - Pending Review Specialty Diagnoses / Procedures Referred By Contac t Referred To Contact Cardiac Studies Diagnoses SOB (shortness of breath) Procedures ECHO, COMPLETE (2D), TRANS-THORACIC Janell Cain MD [address] [place] [address] Referral ID Status Reason Start Date Expiration Date Visits Requested Visits Authorized [id number] Pending Review Precert 10/06/[phone] Reason for Visit * Reason Onset Date Comments Hospital Follow-Up Patient was e xperiencing extreme dizziness last Tuesday and had a bp of 197/93. Patient was discharged from [facility] on 09/25 where they believed she was dehydrated when the patient denies this could have been the reason. Patient reports that when using Prolia her bp was 157/78 and she was very lightheaded and is experiencing SOB when going up a flight of stairs. Hospital Follow-Up 10/06/2023 Encounter Details Date Type Department Care Team (Late st Contact Info) Description 10/06/2023 1:20 PM EDT Office Visit General Internal Medicine Janell Lacey [place] 200 [place] [address] Janell Cain MD 200 [facility] [place] [address] HTN, goal below 140/90*; Dehydration; SOB (shortness of breath); Palpitations; Hospital discharge follow-up Allergies Active Allergy Reactions Criticality Noted Date [...] g 1 08/31/2017 Active Cranberry-Vitami n C 33861-447 MG Oral Capsule 0 02/20/2018 Active Calcium [...] edema 100 Tablet 3 10/13/2022 Active Nystatin 089827 UNIT/GM External OintmentIndicati ons:Candidal intertrigo Apply topically [...] before bedtime. 90 Tablet 3 10/06/2023 Active Metoprolol Succinate ER 25 MG Oral Tablet Extended Release 24 Hour (toPROL XL)Indications:H TN, goal below 140/90 Take 0.5 Tablets by mouth in the morning. 45 Tablet 3 06/20/2023 Discontinue d(Medicatio n/Dose Changed) documented as of this encounter (statuses as [...] mRNA, LNP-s, No Pre serve, 2-Dose Series ([email or web address]) 09/17/2021,04/04/2021,08/25/2020,07/21 Covid-19, Mrna, Lnp-s, Pf, B ivalent, 30 Mcg, IM, 12 yrs and above ([email or web address]) 03/25/2022 H1N1 2009 Influenza, IM 07/03/2009 Pneumococcal [...] Sign Reading Time Taken Comments Blood Pressure 152/80 10/06/2023 1:05 PM EDT Pulse 78 10/06/2023 1:05 PM EDT Temperature 37.1 C (98.7 F) 10/06/2023 1:05 PM ED T Respiratory Rate - - Oxygen Saturation 99% 10/06/2023 1:05 PM EDT Inhaled Oxygen Concentration - - Weight 81.1 kg (178 lb 14.4 oz) 10/06/2023 1:05 PM EDT Height 152.4 cm (5') 10/06/2023 1:05 PM EDT Body Mass Index 34.94 10/06/2023 1:05 PM EDT documented in this encounter Progress Notes * Janell Cain MD - 10/06/2023 1:18 PM EDT HPI: Maria A Cheung is a 83 year old female who presents with: Chief Complaint Patient presents with Hospital Follow-Up Patient was experiencing extreme dizziness last Tuesday and had a bp of 197/93. Patient was discharged from [facility] on 09/25 where they believed she was dehydrated when the patient denies this could have been the reason. Patient reports that when using Prolia her bp was 157/78 and she was very lightheaded and is experiencing SOB when going up a flight of stairs. Patient is here for the ER follow up. As per the review of the chart and discussion with the patient on 09/26/2023 patient ended up in emergency room locally with dizziness, lightheadedness with a mild shortness of breath and chest heaviness. Patient states it started at night and was constant till orning. She did not have any headache or vertigo. No nausea or vomiting. Patient did take 2 baby aspirins route 2:00 a.m. in the morning and when her checked her blood pressure at home it wasaround 170 systolic which was high for her. In ER patient was not in any distress and she was afebrile with a heart rate of 90 per minute and blood pressure of 190/100. She did look dehydrated to ER physician and she had no focal neurological deficit. EKG showed normal sinus rhythm and no ST-T changes or any sign of ischemia. Chest x-ray was negative for any acute cardiopulmonary process. Labs showed normal WBC, hemoglobin hematocrit and platelet. BMP normal, BUN was 26 which was slightly high and consistent with clinically dehydration. LFT normal. High sensitivity troponin 5.7 with the normal limit. Lipase normal, TSH normal. UA showed no sign of infection. Patient did receive IV fluid 500 mL x2 of normal saline. After stabilization patient was able to ambulate to the bathroom without any difficulty. Her vitals improved eventually. Patient was advised to follow up with us and was discharged home in stable condition. No med changes were made. States still feels sob with minimal exertion, palpitation+ Reviewed last echo. Patient Active Problem List Diagnosis Code ADVANCE DIRECTIVE INFORMATION Other osteoporosis without current pathological fracture M81.8 HTN, goal below 140/90 I10 BMI 35-39 ISOLATED (SEE ACTUAL BMI) E66.9 Hyperlipidemia with target LDL less than 130 E78.5 Aspirin contraindicated Z53.09 Personal history of malignant neoplasm of breast Z85.3 Senile osteoporosis M81.0 Prediabetes R73.03 Current Outpatient Medications Medication Sig Dispense Refill DAILY MULTIPLE VITAMINS PO TABS 1 TABLET DAILY metroNIDAZOLE, topical, (METROCREAM) 0.75 % cream Apply topically to affected area 2 times a day. apply to affected area. 45 g 1 Cranberry-Vitamin C 49471-055 MG Oral Capsule Calcium Citrate-Vitamin D (CITRACAL/VITAMIN [...] as needed for edema 100 Tablet 3 Pravastatin Sodium 20 MG Oral Tablet (Pravachol) TAKE 1 TABLET DAILY 90 Tablet 3 Lisinopril 5 MG Oral Tablet (Prinivil) Take 1 Tablet by mouth in the morning. 90 Tablet 1 Metoprolol Succinate ER 25 MG Oral Tablet Extended Release 24 Hour (toPROL XL) Take 0.5 Tablets by mouth in the morning. 45 Tablet 3 Nystatin 328746 UNIT/GM External Ointment Apply topically to affected area 2 times a day. To affacted area for two weeks. 30 g 2 Pantoprazole Sodium 40 MG Oral Tablet Delayed Release (Protonix) Take 1 Tablet by mouth in the morning. 90 Tablet 3 No current facility-administered medications for this visit. The patient's medication list was reviewed and updated as needed. 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 Bite by unspecified animal(E906.5) cat bite ~11/19/02, completed 1/ of rabies series, cat ok after ~14 days Breast cancer (HCC) 1991 left breast Diverticulitis of colon 2004 Cscope HTN, goal below 140/90 Hyperlipidemia LDL goal < 130 Malignant neoplasm of female breast (HCC) 1992 Breast; s/p XRT L breast lumpctomy and tamoxifen; in clinical trial now Peptic ulcer Personal history of radiation therapy 1992 Social History Socioeconomic History Marital status: Spouse name: Matti Number of children: 4 Years of education: 12 Tobacco Use Smoking status: Former Smokeless tobacco: Never Tobacco comments: >30 yrs. ago quit / only smoked for a couple yrs. Vaping Use Vaping Use: Never used Substance and Sexual Activity Alcohol use: No Drug use: No Sexual activity: Not Currently Social History Narrative Lives with , for 58 years. Daughter also lives with them. Social Determinants of Health Food Insecurity: No Food Insecurity (11/02/2022) Hunger Vital Sign Worried About Running Out of Food in the Last Year: Never true Ran Out of Food in the Last Year: Never true Family History Problem Relation Age of Onset Heart Disorder Mother Stroke Mother Breast Cancer Mother Dementia Mother Prostate cancer Father Stroke Sister No Known Problems Son No Known Problems Son No Known Problems Son No Known Problems Daughter All system negative except as per hpi. OBJECTIVE: BP 152/80 | Pulse 78 | Temp 37.1 C (98.7 F) (Tympanic) | Ht 1.524 m (5') | Wt 81.1 kg (178 lb 14.4 oz) | SpO2 99% | BMI 34.94 kg/m | BSA 1.85 m PHYSICAL EXAM: HEENT: PERRLA, EOMI, anicteric sclera, b/l tympanic membrane is pearly white, no erythema, no pharyngeal erythema, no lymphadenopathy, neck supple CVS: RRR, no murmurs, rubs or gallops, s1 s 2normal. RESP: clear to auscultation, no wheezing or crackles ABD: soft, NT/ND EXT: no edema, cyanosis, peripheral pulses palpable bilaterally No large joint swelling, no redness, range of motion normal. Skin normal. Gait normal. Mood stable No focal weakness ASSESSMENT AND PLAN: HTN, goal below 140/90 (Primary) - Increase Metoprolol Succinate ER 25 MG Oral Tablet Extended Release 24 Hour (toPROL XL); Take 0.5Tablets by mouth in the morning and 0.5 Tablets before bedtime. Dehydration Continue hydration with 7 to 8 glasses of water. SOB (shortness of breath) - ECHO, COMPLETE (2D), TRANS-THORACIC; Future; Expected date: 10/06/2023 - CARDIOLOGY REFERRAL OP Palpitations - EXTERNAL EKG 8 TO 15 DAYS HOME ENROLLMENT; Future; Expected date: 10/07/2023 Increase metoprolol. TSH , cbcd was normal in hospital. Janell Cain MD documented in this encounter Nursing Notes * Sirena Mckinley MED ASSIST - 10/06/2023 1:05 PM EDT Chief Complaint Patient presents with Hospital Follow-Up Patient was experiencing extreme dizziness last Tuesday and had a bp of 197/93. Patient was discharged from [facility] on 09/25 where they believed she was dehydrated when the patient denies this could have been the reason. Patient reports that when using Prolia her bp was 157/78 and she was very lightheaded and is experiencing SOB when going up a flight of stairs. documented in this encounter Plan of Treatment Upcoming Encounters Date Type Department Care Team (Late st Contact Info) Description 11/08/2023 11:00 AM EDT Nurse Only Ancillary Meir Jauregui [place] [address] [facility] [place] [address] [place] Nurse Annual Wellness Ethan [address] [place] [address] 12/22/2023 10:20 AM EDT Office Visit Otolaryngology Meir Jauregui [place] [address] [place] [address] Mar Singh PA-C [address] [place] [address] 02/09/2024 8:20 AM EDT Office Visit General Internal Medicine [facility] 200 [facility] [place] [address] Janell Cain MD 200 [facility] [place] [address] 04/03/2024 10:00 AM EDT Office Visit Dermatology[address] [place] [address] Liya Meade PA-C [address] [place] [address] [place] [address] 04/10/2024 8:30 AM EDT Office Visit Rheumatology [facility] [address] [facility] [place], [place] [address] Espinoza Lazo CRNP [address] [facility] [place], [place] [address] 04/11/2024 11:00 AM EDT Office Visit General Internal Medicine [facility] [address] [facility] [place] [address] Janell Cain MD 200 [facility] [place], [place] [address] Scheduled Orders Name Type Priority Associated Diagnoses Orde r Schedule EXTERNAL EKG 8 TO 15 DAYS HOME ENROLLMENT Holter Routine Palpitations Expected: 10/07/2023 (Approximate), Expires: 10/05/2024 ECHO, COMPLETE (2D), TRANS-THORACIC Echocardiology Routine SOB (shortness of breath) Expected: 10/06/2023, Expires: 11/04/2025 Scheduled Referrals Name Type Priority Associated Diagnoses Orde r Schedule CARDIOLOGY REFERRAL OP Referral Within 30 days (routine) SOB (shortness of breath) Ordered: 10/06/2023 Health Maintenance Due Date Last Done Comments [...] D LEVEL ONCE IN A LIFETIME-USE SMARTSET# [id number] Completed 09/28/2023, 03/30/2023, 01/26/2021, Additional history exists [...] as of this encounter Visit Diagnoses Diagnosis HTN, goal below 140/90- Primary Unspecified essential hypertension Dehydration SOB (shortness of breath) Shortness of breath Palpitations Hospital discharge follow-up Other follow-up examination documented in this encounter Care Teams Top Collar Maker Relationship Specialty Start Date End Date Janell Cain MD [address] [place] [address] PCP - General 10/28/08 documented as of this encounter"
--- OUTSIDE RECORDS SUMMARY | 2023-11-10 22:52 | External Medical Summary | Summary of Care ---
Author Name Unknown Organization [facility] Address [address] [place] [address] Phone [phone] Care Team Providers Care Production Machine Operator Name Role Phone Janell Cain MD Primary Care Provider + Reason for Visit * Reason Onset Date Comments Appointment 10/06/2023 Encounter Details Date Type Department Care Team (Late st Contact Info) Description 10/06/2023 Telephone General Internal Medicine [facility] [address] [place] [address] Janell Cain MD 200 [place] [address] Appointment Allergies Active Allergy Reactions Criticality Noted [...] 45 g 1 08/31/2017 Active Cranberry-Vitamin C 00015-118 MG Oral Capsule 0 02/20/2018 Active Calcium [...] edema 100 Tablet 3 10/13/2022 Active Nystatin 819097 UNIT/GM External OintmentIndication s:Candidal intertrigo Apply topically [...] mRNA, LNP-s, No Pre serve, 2-Dose Series ([employer]) 09/17/2021,04/04/2021,08/25/2020,07/21 Covid-19, Mrna, Lnp-s, Pf, B ivalent, 30 Mcg, IM, 12 yrs and above ([employer]) 03/25/2022 H1N1 2009 Influenza, IM 07/03/2009 Pneumococcal [...] Miscellaneous Notes * Telephone Encounter - Sukhwinder Copeland OSA [...] Procedure: CARDIOLOGY REFERRAL OP Status: Needs Scheduling (Nxvo-dl-Icdjawc Pending) Requested appt date: Authorizing: Janell Cain MD in [facility] P[facility] Referral: [id number] (Pending Review) Priority: Within 30 days (routine) Diagnosis: SOB (shortness of breath) [R06.02] Please assist patient with scheduling appointment within [address] Pace documented in this encounter Plan of Treatment Upcoming Encounters Date Type Department Care Team (Late st Contact Info) Description 10/24/2023 10:30 AM EDT Office Visit Cardiology, [facility] [address] [place] [address] Pablo Pace MD [address] [place] [address] 11/08/2023 11:00 AM EDT Nurse Only Ancillary [facility] [address] [place] [address] [facility], Nurse Annual Wellness [facility] [address] [place] [address] 12/22/2023 10:20 AM EDT Office Visit Otolaryngology [facility] [address] [place] [address] Mar Singh PA-C [address] [place] [address] 12/23/2023 2:30 PM EDT [facility] [address] [place] [address] 02/09/2024 8:20 AM EDT Office Visit General Internal Medicine [facility] [address] [place] [place] [address] Janell Cain MD [address] [place] [address] 04/03/2024 10:00 AM EDT Office [address] [address] Liya Meade, PAIvory [address] [place] [address] [place] [address] 04/10/2024 8:30 AM EDT Office Visit Rheumatology [facility] [address] [place] [address] Espinoza Lazo CRNP [address] [place] [address] 04/11/2024 11:00 AM EDT Office Visit General Internal Medicine [facility] [address] [place] [address] Janell Cain MD [address] [facility] [place] [address] Health Maintenance Due Date Last Done Comments [...] D LEVEL ONCE IN A LIFETIME-USE SMARTSET# [id number] Completed 09/28/2023, 03/30/2023, 01/26/2021, Additional history exists [...] filedocumented as of this encounter Care Teams Production Machine Operator Relationship Specialty Start Date End Date Janell Cain MD [address] [place] [address] PCP - General 10/28/08 documented as of this encounter
--- OUTSIDE RECORDS SUMMARY | 2023-11-10 22:52 | External Medical Summary | Summary of Care ---
Author Name Unknown Organization [facility] Address [address] [place] [address] Phone [phone] Care Team Providers Care Video Intern Name Role Phone Janell Cain MD Primary Care Provider + Reason for Visit * Reason Onset Date Comments Appointment 10/06/2023 Encounter Details Date Type Department Care Team (Late st Contact Info) Description 10/06/2023 Telephone General Internal Medicine [facility] [address] [place] [address] Janell Cain MD [address] [place] [address] Appointment Allergies Active Allergy Reactions Criticality Noted [...] 45 g 1 08/31/2017 Active Cranberry-Vitamin C 51691-822 MG Oral Capsule 0 02/20/2018 Active Calcium [...] edema 100 Tablet 3 10/13/2022 Active Nystatin 906257 UNIT/GM External OintmentIndication s:Candidal intertrigo Apply topically [...] mRNA, LNP-s, No Pre serve, 2-Dose Series ([employer]) 09/17/2021,04/04/2021,08/25/2020,07/21 Covid-19, Mrna, Lnp-s, Pf, B ivalent, 30 Mcg, IM, 12 yrs and above ([employer]) 03/25/2022 H1N1 2009 Influenza, IM 07/03/2009 Pneumococcal [...] Procedure: CARDIOLOGY REFERRAL OP Status: Needs Scheduling (Ylup-tf-Vivisiu Pending) Requested appt date: Authorizing: Janell Cain MD in [facility] POD[facility] Referral: [id number] (Pending Review) Priority: Within 30 days (routine) Diagnosis: SOB (shortness of breath) [R06.02] Please assist patient with scheduling appointment within [address] Pace documented in this encounter Plan of Treatment Upcoming Encounters Date Type Department Care Team (Late st Contact Info) Description 11/08/2023 11:00 AM EDT [facility] 132 [facility] [place] [address] [facility], Nurse Annual Wellness [facility] [address] [facility] [place] [address] 12/22/2023 10:20 AM EDT [facility] 132 [facility] [place] [address] Mar Singh PA-C 132 [facility] [place] [address] 02/09/2024 8:20 AM EDT Office Visit General Internal Medicine [facility] 200 [facility] [place] [address] Janell Cain MD [address] [place] [address] 04/03/2024 10:00 AM EDT Office Visit Dermatology[address] [place] [address] Liya Meade PA-C [address] [place] [address] [place] [address] 04/10/2024 8:30 AM EDT Office Visit Rheumatology [facility] [address] [place], [place] [address] Espinoza Lazo CRNP [address] [place] [address] 04/11/2024 11:00 AM EDT Office Visit General Internal Medicine [facility] [place] 200 [facility] [place] [address] Janell Cain MD 200 [facility] [place] [address] Health Maintenance Due Date Last Done Comments [...] D LEVEL ONCE IN A LIFETIME-USE SMARTSET# 71309 Completed 09/28/2023, 03/30/2023, 01/26/2021, Additional history exists [...] filedocumented as of this encounter Care Teams Video Intern Relationship Specialty Start Date End Date Janell Cain MD [address] [place] [address] PCP - General 10/28/08 documented as of this encounter
--- OUTSIDE RECORDS SUMMARY | 2023-11-10 22:53 | External Medical Summary | Summary of Care ---
Author Name Unknown Organization [facility] Address [address] [place] [address] Phone [phone] Care Team Providers Care Supervisor Shuttle Fitting Name Role Phone Janell Cain MD Primary Care Provider + Reason for Visit * Reason Onset Date Comments Medication Administration Prolia Medication Administration 10/05/2023 Prolia * Precert (Within 30 days (routine)) - Authorized Specialty Diagnoses / Procedures Referred By Contac t Referred To Contact Rheumatology Diagnoses Age-related osteoporosis without current pathological fracture Procedures AL DENOSUMAB INJECTION Jorge Bunn MD [facility] [place] [address] [place] [address] Jorge Bunn MD [address] [place] [address] [place] [address] Referral ID Status Reason Start Date Expiration Date V isits Requested Visits Authorized [id number] Authorized Precert 09/20/2023 09/18/2024 2 2 Encounter Details Date Type Department Care Team (Late st Contact Info) Description 10/05/2023 8:30 AM EDT Nurse Only Rheumatology [place] [address] [place] [address] Pf, Nurse Rheum [facility]0 [address] [place] [address] Medication Administration (Prolia); Medica... Allergies Active Allergy Reactions Criticality Noted Date Comments Aspirin 11/28/2015 bleeding Bleeding-stomach ulcers documented as of this encounter (statuses as of 10/05/2023) Medications Medication Sig Dispensed Refills Start Date End Date Status DAILY MULTIPLE VITAMINS PO TABS 1 TABLET DAILY 0 05/28/2014 Acti ve metroNIDAZOLE, topical, (METRO[employer]) 0.75 % creamIndications:R osacea Apply topically to affected area 2 times a day. apply to affected area. 45 g 1 08/31/2017 Active Cranberry-Vitamin C 22766-915 MG Oral Capsule 0 02/20/2018 Active Calcium [...] edema 100 Tablet 3 10/13/2022 Active Nystatin 015095 UNIT/GM External OintmentIndication s:Candidal intertrigo Apply topically [...] in the morning. 45 Tablet 3 06/20/2023 Active Hospital, Clinic, or Other Facility Administered Medication Ordered Dose Route Frequency Start Date End Date Status Denosumab (Prolia) subcut inj 60 mgIndications:Senile osteoporosis 60 mg SC ONCE 10/05/2023 10/05/2023 Ended documented as of this encounter (statuses as of 10/05/2023) Active Problems Problem Noted Date Diagnosed Date [...] as of this encounter (statuses as of 10/05/2023) Resolved Problems Problem Noted Date Diagnosed Date Resolved Date Malignant neoplasm of lower- inner quadrant of female breast 02/08/2005 02/24/2018 Overview: 1992 HTN, goal below 140/90 11/30 documented as of this encounter (statuses as of 10/05/2023) Immunizations Name Administration Dates Next Due COVID-19 mRNA, LNP-s, No Pre serve, 2-Dose Series ([employer]) 09/17/2021,04/04/2021,08/25/2020,07/21 Covid-19, Mrna, Lnp-s, Pf, B ivalent, 30 Mcg, IM, 12 yrs and above ([employer]) 03/25/2022 H1N1 2009 Influenza, IM 07/03/2009 Pneumococcal [...] Sign Reading Time Taken Comments Blood Pressure 156/90 10/05/2023 8:25 AM EDT Pulse - - Temperature 36.5 C (97.7 F) 10/05/2023 8:25 AM ED T Respiratory Rate - - Oxygen Saturation - - Inhaled Oxygen Concentration - - Weight - - Height - - Body Mass Index - - documented in this encounter Patient Instructions * Patient Instructions* Toni Sandy LPN - 10/05/2023 8:26 AM EDT MEDICATION GUIDE Prolia (AL-demetrio-a) (denosumab) Injection Read the Medication Guide that comes with Prolia before you start taking it and each time you get arefill. There may be new information. This Medication Guide does not take the place of talking withyour doctor about your medical condition or treatment. Talk to your doctor if you have any questions about Prolia. What is the most important information I should know about Prolia? Prolia can cause serious side effects includin. Low calcium levels in your blood (hypocalcemia). Prolia may lower the calcium levels in your blood. If you have low blood calcium before you start receiving Prolia, it may get worse during treatment. Your low blood calcium must be treated before you receive Prolia. Most people with low blood calcium levels do not have symptoms, but some people may have symptoms. Call your doctor right away if you have symptoms of low blood calcium such as: Spasms, twitches, or cramps in your muscles Numbness or tingling in your fingers, toes, or around your mouth Your doctor may prescribe calcium and vitamin D to help prevent low calcium levels in your blood while you take Prolia. Take calcium and vitamin D as your doctor tells you to. 2. Serious infections. Serious infections in your skin, lower stomach area (abdomen), bladder, or ear may happen if you take Prolia. Inflammation of the inner lining of the heart (endocarditis) due to an infection also mayhappen more often in people who take Prolia. You may need to go to the hospital for treatment if you develop an infection. Prolia is a medicine that may affect your immune system. People who have weakened immune system or take medicines that affect the immune system may have an increased risk for developing serious infections. Call your doctor right away if you have any of the following symptoms of infection: Fever or chills Skin that looks red or swollen and is hot or tender to touch Severe abdominal pain Frequent or urgent need to urinate or burning feeling when you urinate 3. Skin problems. Skin problems such as inflammation of your skin (dermatitis), rash, and eczema may happen if you take Prolia. Call your doctor if you have any of the following symptoms of skin problems that do not go away or get worse: Redness Itching Small bumps or patches (rash) Your skin is dry or feels like leather Blisters that ooze or become crusty Skin peeling 4. Severe jaw bone problems (osteonecrosis). Severe jaw bone problems may happen when you take Prolia. Your doctor should examine your mouth before you start Prolia. Your doctor may tell you to see your dentist before you start Prolia. It is important for you to practice good mouth care during treatment with Prolia. Call your doctor right away if you have any of these side effects. What is Prolia? Prolia is a prescription medicine used to treat osteoporosis (thinning and weakening of bone) in women after menopause (change of life) who Have an increased risk for fractures (broken bones). Cannot use another osteoporosis medicine or other osteoporosis medicines did not work well. Who should not receive Prolia? Do not take Prolia if you have been told by your doctor that your blood calcium level is too low. What should I tell my doctor before receiving Prolia? Before taking Prolia, tell your doctor if you: Have low blood calcium. Cannot take daily calcium and vitamin D. Had parathyroid or thyroid surgery (glands located in your neck). Have been told you have trouble absorbing minerals in your stomach or intestines (malabsorptionsyndrome). Have kidney problems or are on kidney dialysis. Plan to have dental surgery or teeth removed. Are or plan to become . Prolia may harm your unborn baby. Tell your doctor right away if you become while taking Prolia. Surveillance Program: Prolia is not intended for use in women. If you become while taking Prolia, talk to your doctor about enrolling with [employer] or call (h-287-52-[facility]). The purpose of this program is to collect information about women who have become while taking Prolia. Are breast-feeding or plan to breast-feed. It is not known if Prolia passes into your breast milk. You and your doctor should decide if you will take Prolia or breast-feed. You should not do both. Tell your doctor about all the medicines you take, including prescription and nonprescription drugs, vitamins, and herbal supplements. Know the medicines you take. Keep a list of medicines with you to show to your doctor or pharmacistwhen you get a new medicine. How will I receive Prolia? Prolia is an injection that will be given to you by a healthcare professional. Prolia is injected under your skin (subcutaneous). You will receive Prolia 1 time every 6 months. You should take calcium and vitamin D as your doctor tells you to while you receive Prolia. If you miss a dose of Prolia, you should receive your injection as soon as you can. Take good care of your teeth and gums while you receive Prolia. Marble and floss your teeth regularly. Tell your dentist that you are receiving Prolia before you have dental work. What are the possible side effects of Prolia? Prolia may cause serious side effects. See What is the most important information I should know about Prolia? Long-term effects on bone: It is not known if the use of Prolia over a long period of time may cause slow healing of broken bones or unusual fractures. The most common side effects of Prolia are: Back pain Pain in your arms and legs High cholesterol Muscle pain Bladder infection These are not all the possible side effects of Prolia. For more information, ask your doctor or pharmacist. Call your doctor for medical advice about side effects. You may report side effects to FDA at 7-475-TIQ-6951. How should I handle Prolia if I need to pick it up from a pharmacy? Keep Prolia in a refrigerator at 36F to 46F (2C to 8C) in the original carton. Do not freeze Prolia. When you remove Prolia from the refrigerator, Prolia must be kept at room temperature [up to 77F (25C)] in the original carton and must be used within 14 days. Do not keep Prolia at temperatures above 77F (25C). Warm temperatures will affect how Prolia works. Do not shake Prolia. Keep Prolia in the original carton to protect from light. Keep Prolia and all medicines out of reach of children. General information about Prolia Do not give Prolia to other people even if they have the same symptoms that you have. It may harm them. This Medication Guide summarizes the most important information about Prolia. If you would like more information, talk with your doctor. You can ask your doctor or pharmacist for information about Prolia that is written for health professionals. For more information, go to www.[employer] or call [employer] at . What are the ingredients in Prolia? Active ingredient: denosumab Inactive ingredients: sorbitol, acetate, polysorbate 20 (prefilled syringe only), Water for Injection (LONGTERM), and sodium hydroxide What is osteoporosis? Osteoporosis is a disease in which the bones become thin and weak, increasing the chance of having a broken bone. Osteoporosis usually causes no symptoms until a fracture happens. The most common fractures are in the spine (backbone). They can shorten height, even without causing pain. Over time, the spine can become curved or deformed and the body bent over. Fractures from osteoporosis can also happen in almost any bone in the body, for example: the wrist, rib, or hip. Once you have had a fracture, the chance for more fractures greatly increases. The following risk factors increase your chance of getting fractures from osteoporosis: Past broken bones from osteoporosis Very low bone mineral density (BMD) Frequent falls Limited movement, such as using a wheelchair Medical conditions likely to cause bone loss, such as some kinds of arthritis Taking steroid medicines called glucocorticoids, such as prednisone Other medicines that may cause bone loss, for example: seizure medicines (such as phenytoin), blood thinners (such as heparin), high doses of vitamin A What can I do to treat osteoporosis? There are many steps you can take to treat osteoporosis. Taking Prolia, along with calcium and vitamin D, may be one option for you. [employer], a subsidiary of [facility]. [employer] [place], [place] [address] This Medication Guide has been approved by the US Food and Drug Administration. 1xxxxxx - v1 Issued: 11/2009 documented in this encounter Progress Notes * Toni Sandy LPN - 10/05/2023 8:26 AM EDT Maria A Cheung presents today for administration of Prolia. She understands the benefits and risks of this treatment. An educational pamphlet was given to the patient. Prolia 60 mg was administered subcutaneously. The patient tolerated the procedure without problems. She will return in 6 months for the next injection and evaluation. Toni Sandy LPN documented in this encounter Nursing Notes * Toni Sandy LPN - 10/05/2023 8:24 AM EDT Chief Complaint Patient presents with Medication Administration Prolia documented in this encounter Plan of Treatment Upcoming Encounters Date Type Department Care Team (Late st Contact Info) Description 10/06/2023 1:20 PM EDT Office Visit General Internal Medicine Janell Lacey [place] [address] [place] [address] Janell [place] MD [address] [place] [address] 11/08/2023 11:00 AM EDT Nurse Only Ancillary [facility] [place] [address] JaureguiNurse [facility]or [facility] [place] 132 [facility] [address] 12/22/2023 10:20 AM EDT Office Visit Otolaryngology [facility] 132 [place] [address] Mar Singh PA-C 132 [place] [address] 02/09/2024 8:20 AM EDT Office Visit General Internal Medicine [facility] [place] 200 [facility] [address] [place] [address] Janell [place] MD 200 [facility] [place] [address] 04/03/2024 10:00 AM EDT Office Visit Dermatology[address], [place] [address] Liya Meade PA-C [address] [place] [address] [place] [address] 04/10/2024 8:30 AM EDT Office Visit Rheumatology [facility] [address] [place] [address] Espinoza Lazo CRNP [address] [place], [place] [address] Health Maintenance Due Date Last Done Comments [...] D LEVEL ONCE IN A LIFETIME-USE SMARTSET# [id number] Completed 09/28/2023, 03/30/2023, 01/26/2021, Additional history exists [...] as of this encounter Visit Diagnoses Diagnosis Senile osteoporosis- Primary documented in this encounter Administered Medications Inactive Administered Medications - up to 3 most recent administrations Medication Order MAR Action Action Date Dose Rate Site Denosumab (Prolia) subcut inj 60 mg 60 mg, Subcutaneous, ONCE, On Tue10/05/23 at 0830, For 1 dose Given 10/05/2023 8:35 AM EDT 60 mg Arm L eft Upper documented in this encounter Care Teams Supervisor Shuttle Fitting Relationship Specialty Start Date End Date Janell Cain MD 200 [facility] [place] [address] PCP - General 10/28/08 documented as of this encounter
--- OUTSIDE RECORDS SUMMARY | 2023-11-10 22:53 | External Medical Summary | Summary of Care ---
Author Name Unknown Organization [facility] Address [address] [facility] [place] [address] Phone [phone] Care Team Providers Care Track Repair Supervisor Name Role Phone Janell Cain MD Primary Care Provider + Encounter Details Date Type Department Care Team (Late st Contact Info) Description 09/27/2023 Orders Only PATIENT PORTAL DO NOT DELETE THIS DEPT USED BY [place] [id number] Allergies Active Allergy Reactions Criticality Noted Date Comments Aspirin 11/28/2015 bleeding Bleeding-stomach ulcers documented as of this encounter (statuses as of 09/27/2023) Medications Medication Sig Dispensed Refills Start Date End Date Status DAILY MULTIPLE VITAMINS PO TABS 1 TABLET DAILY 0 05/28/2014 Acti ve metroNIDAZOLE, topical, (METROCREAM) 0.75 % creamIndications:R osacea Apply topically to affected area 2 times a day. apply to affected area. 45 g 1 08/31/2017 Active Cranberry-Vitamin C 26989-792 MG Oral Capsule 0 02/20/2018 Active Calcium [...] edema 100 Tablet 3 10/13/2022 Active Nystatin 718856 UNIT/GM External OintmentIndication s:Candidal intertrigo Apply topically [...] osteoporosis 60 mg SC ONCE 10/05/2023 10/05/2023 Active documented as of this encounter (statuses as of 09/27/2023) Active Problems Problem Noted Date Diagnosed Date [...] as of this encounter (statuses as of 09/27/2023) Resolved Problems Problem Noted Date Diagnosed Date Resolved Date Malignant neoplasm of lower- inner quadrant of female breast 02/08/2005 02/24/2018 Overview: 1993 HTN, goal below 140/90 11/30 documented as of this encounter (statuses as of 09/27/2023) Immunizations Name Administration Dates Next Due COVID-19 mRNA, LNP-s, No Pre serve, 2-Dose Series ([employer] 09/17/2021,04/04/2021,08/25/2020,07/21 Covid-19, Mrna, Lnp-s, Pf, B ivalent, 30 Mcg, IM, 12 yrs and above ([employer] 03/25/2022 H1N1 2009 Influenza, IM 07/03/2009 Pneumococcal [...] 10/05/2023 8:30 AM EDT Nurse Only Rheumatology [facility] [address] [place] [address] Pf, Nurse Rheum [facility] [place] [address] 11/08/2023 10:00 AM EDT Nurse Only Ancillary [facility] [place] [address] [place] [address] Im, Nurse Annual Wellness [facility] 200 [facility] [place] [address] 12/22/2023 10:20 AM EDT Office Visit Otolaryngology [facility] [address] [place] [address] Mar Singh PA-C [address] [place] [address] 02/09/2024 8:20 AM EDT Office Visit General Internal Medicine [facility] [address] [place] [address] Janell Cain MD 200 [facility] [place] [address] 04/03/2024 10:00 AM EDT Office Visit Dermatology[address] [place] [address] Liya Meade PA-C [address] [place] [address] [place] [address] 04/10/2024 8:30 AM EDT Office Visit Rheumatology [place] [address] [facility] [place] [address] Espinoza Lazo CRNP [address] [place] [address] [place] [address] Health Maintenance Due Date Last Done Comments COVID-19 Vaccine ( season) 2023 03/25/2022, 09/17/2021, 09/17/2021, Additional history exists Depression Screening 11/03/2023 11/02/2022 DXA Scan 06/09/2024 06/09/2022, 05/14, 05/30/2018, Additional history exists GFR 07/29/2024 07/29/2023, 01/12, 01/28/2022, Additional history exists HbA1c 07/29/2024 07/29/2023, 01/12, 01/28/2022, Additional history exists Albumin/Creatinine Ratio 01/28/2025 022, 07/10/2019, 08/25/2017, Additional history exists COLONOSCOPY-EVERY 5 YRS AGES 18-100 02/12/2026 02/12/2021, 02/12/2021, 01/07/2016, Additional history exists DTaP,Tdap,and Td Vaccines (3 - Td or Tdap) 09/07/2032 09/07/2022, 06/28/2012, 11/19/2002, Additional history exists Pneumococcal Vaccine: 65+ Years Completed 11/28/2015, 01/05/2010 Zoster Vaccines Completed 06/10/2020, 03/13, 03/28/2020, Additional history exists Influenza Vaccine (FLU shot) Completed , 03/25/2022, 03/25/2022, Additional history exists VITAMIN D LEVEL ONCE IN A LIFETIME-USE SMARTSET# [id number] Completed 03/30/2023, 01/26/2021, 08/29/2019, Additional history exists GARDASIL-HPV IMMUNIZATION SERIES Aged [...] filedocumented as of this encounter Care Teams Track Repair Supervisor Relationship Specialty Start Date End Date Janell Cain MD [address] [place] [address] PCP - General 10/28/08 documented as of this encounter
--- OUTSIDE RECORDS SUMMARY | 2023-11-10 22:53 | External Medical Summary | Summary of Care ---
Author Name Unknown Organization [facility] Address [address] [place] [address] Phone [phone] Care Team Providers Care Remedial Project Manager Name Role Phone Janell Cain MD Primary Care Provider + Reason for Visit * Reason Comments Outpatient Testing Encounter Details Date Type Department Care Team (Late st Contact Info) Description 09/28/2023 10:00 AM EDT Laboratory Laboratory [facility] [address] [place] [address] [facility] [address] [place] [address] Senile osteoporosis Allergies Active Allergy Reactions Criticality Noted Date Comments Aspirin 11/28/2015 bleeding Bleeding-stomach ulcers documented as of this encounter (statuses as of 09/28/2023) Medications Medication Sig Dispensed Refills Start Date End Date Status DAILY MULTIPLE VITAMINS PO TABS 1 TABLET DAILY 0 05/28/2014 Acti ve metroNIDAZOLE, topical, (METROCREAM) 0.75 % creamIndications:R osacea Apply topically to affected area 2 times a day. apply to affected area. 45 g 1 08/31/2017 Active Cranberry-Vitamin C 78299-894 MG Oral Capsule 0 02/20/2018 Active Calcium [...] edema 100 Tablet 3 10/13/2022 Active Nystatin 457507 UNIT/GM External OintmentIndication s:Candidal intertrigo Apply topically [...] as of this encounter (statuses as of 09/28/2023) Active Problems Problem Noted Date Diagnosed Date [...] as of this encounter (statuses as of 09/28/2023) Resolved Problems Problem Noted Date Diagnosed Date Resolved Date Malignant neoplasm of lower- inner quadrant of female breast 02/08/2005 02/24/2018 Overview: 1992 HTN, goal below 140/90 11/30 documented as of this encounter (statuses as of 09/28/2023) Immunizations Name Administration Dates Next Due COVID-19 mRNA, LNP-s, No Pre serve, 2-Dose Series (IngBoo) 09/17/2021,04/04/2021,08/25/2020,07/21 Covid-19, Mrna, Lnp-s, Pf, B ivalent, 30 Mcg, IM, 12 yrs and above (IngBoo) 03/25/2022 H1N1 2009 Influenza, IM 07/03/2009 Pneumococcal [...] 10/05/2023 8:30 AM EDT Nurse Only Rheumatology [facility] [address] [place] [address] Pf, Nurse Rheum [address] [place] [address] 11/08/2023 10:00 AM EDT Nurse Only Ancillary [facility] [address] [place] [address] Im, Nurse Annual Wellness [facility] [address] [facility] [place] [address] 12/22/2023 10:20 AM EDT Office Visit Otolaryngology [facility] [address] [facility] [place] [address] Mar Singh PA-C [address] [place] [address] 02/09/2024 8:20 AM EDT Office Visit General Internal Medicine [facility] [address] [place] [address] Janell Cain MD [address] [place] [address] 04/03/2024 10:00 AM EDT Office Visit [address] [address] Liya Meade PA-C [address] [place] [address] [place] [address] 04/10/2024 8:30 AM EDT Office Visit Rheumatology [place] [id number] [place] [address] Espinoza Lazo CRNP [address] [place] [address] Pending Results Name Type Priority Associated Diagnoses Date /Time 25-HYDROXY VITAMIN D Lab Routine Senile osteoporosis 09/28/2023 9:52 AM EDT CALCIUM Lab Routine Senile osteoporosis 09/28/2023 9:52 AM EDT CREATININE Lab Routine Senile osteoporosis 09/28/2023 9:52 AM EDT Health Maintenance Due Date Last Done Comments [...] D LEVEL ONCE IN A LIFETIME-USE SMARTSET# [id number] Completed 03/30/2023, 01/26/2021, 08/29/2019, Additional history exists [...] of this encounter Visit Diagnoses Diagnosis Senile osteoporosis documented in this encounter Care Teams Remedial Project Manager Relationship Specialty Start Date End Date Janell Cain MD [address] [place] [address] PCP - General 10/28/08 documented as of this encounter
--- OUTSIDE RECORDS SUMMARY | 2023-11-10 22:53 | External Medical Summary ---
Author Name Unknown Address Unknown Organization K09:[facility] [place] [address] Laboratory Report Ordering Provider Test Date Status VERN HAMMOND 09/28/2023 09:52:37 Final Observation Date Value Abnormality Reference (Units ) Status Creatinine 09/28/2023 09:52:37 0.8 0.5-1.0 (mg/dL) Final Glomerular filtration rate/1.73 sq M.predicted [Volume Rate/Area] in Serum, Plasma or Blood by Creatinine-based formula (CKD-EPI) 09/28/2023 09:52:37 74 >=60 (mL/min) Final eGFR is calculated based on the CKD-EPI 2020 equation Performing Location [facility] [place] [address]
--- OUTSIDE RECORDS SUMMARY | 2023-11-10 22:53 | External Medical Summary ---
Author Name Unknown Address Unknown Organization K09:[facility] [place] [address] Laboratory Report Ordering Provider Test Date Status VERN HAMMOND 09/28/2023 09:52:37 Final Observation Date Value Abnormality Reference (Units ) Status Calcium 09/28/2023 09:52:37 9.8 8.4-10.2 ( mg/dL) Final Performing Location [facility] [place] [address]
--- OUTSIDE RECORDS SUMMARY | 2023-11-10 22:53 | External Medical Summary ---
Author Name Unknown Address Unknown Organization K01:[facility] - [address] [place] [address] Laboratory Report Ordering Provider Test Date Status VERN HAMMOND 09/28/2023 09:52:37 Final Deficient: <20 ng/mL
Ins ufficient: 20-29 ng/mL
Recommended/Optimum:30-50 ng/mL

Vitamin D intoxication is rare. If suspicious of Vitamin D toxicity, evaluation of serum Calcium and PTH is recommended. Observation Date Value Abnormality Reference (Units ) Status 25-OH Vitamin D total 09/28/2023 09:52:37 42 >19 (ng/mL) Final Performing Location [facility] - [address] [place] [address]
[2023-11-11] MEDS: ACETAMINOPHEN 1,000 MG/100 ML VIAL IV PRN (02:16)
[2023-11-11 05:07] LABS: Hematocrit (blood only) 36.1 % (37.0-47.0); Hemoglobin 12.1 g/dl (12.0-16.0); Mean Corpuscular Hemoglobin 30.2 pg (25.0-34.0); Mean Corpuscular Hgb Conc 33.5 g/dL (32.0-36.0); Mean Platelet Volume 10.1 fL (9.4-12.4); Platelet Count 254 K/uL (130-400); RDW Standard Deviation 43.2 fL (36.4-46.3); Red Blood Count 4.01 M/uL (4.20-5.40); White Blood Count 5.28 K/ul (4.8-10.8)
[2023-11-11 05:18] LABS: Creatinine Clr Calc Pharmacy 72.4 ml/min; Est GFR (African American) 100.5 ml/min; Est GFR (Non-African American) 86.7 ml/min; Magnesium 1.8 mg/dl (1.7-2.4); Phosphorus 3.1 mg/dl (2.5-4.9); Potassium 3.5 mmol/L (3.5-5.1)
[2023-11-11] MEDS: cefTRIAXone SODIUM 2,000 MG/50 ML BAG IV SCH (05:57)
[2023-11-11] MEDS: amLODIPine BESYLATE 5 MG TAB PO SCH (09:33)
--- NOTE | 2023-11-11 11:53 | Surgery Progress Note ---
<Statement entered by Elaina Mcgovern DO - 11/11/23 20:39> I have seen and examined this patient. She may be advanced to clear liquids. Date of Service November 11, 2023 Assessment & Plan (1) SBO (small bowel obstruction): Plan: Pt with history of hernia repair and mesh here with SBO WBC 8. Vitals are stable, a bit hypertensive Reports improvement in admitting symptoms, still some mild LLQ pain, but no nausea/vomiting + small amount of gas. No BM Feels some hunger Will obtain KUB for further evaluation, if ok may start on clears Admission and Anticipated Discharge Date Admission Date: November 09, 2023 Subjective Patient feeling fairly well. Mild LLQ pain that is improved. Denies nausea/vomiting. Passing small amounts of gas no BM yet. Physical Exam Physical Exam: awake/alert, sitting up in chair Gastrointestinal (Abdomen): Inspection/Auscultation: abdomen not distended Percussion/Palpation: + abdomen tender (very mild discomfort to palpation in the LLQ) and abdomen soft Results & Data Vital Signs (Past 12 Hours) Vital Signs Temp Pulse Pulse Resp BP Pulse Ox O2 Del Method 11/11/23 07:07 97.3 F L 84 20 181/96 H 97 Room Air 11/11/23 07:00 72 11/11/23 04:19 97.7 F 70 18 167/91 H 97 Room Air PG Care Time/CCT Total # of Minutes Spent Total Time Spent with Patient: Total time spent is greater than 50% in coordination of care (as documented) at patient's floor/unit and/or counseling patient: Coding Level of Care Code 08623 SUB INP/OBS CARE 07/07MIN Diagnoses SBO (small bowel obstruction) K56.609
--- NOTE | 2023-11-11 12:20 | Cardiology Progress Note ---
Date of Service November 11, 2023 Assessment & Plan (1) SBO (small bowel obstruction): (2) Asymptomatic hypertensive urgency: (3) Premature ventricular contraction: Plan 11/10/23: Patient admitted for abdominal pain and diagnosed with small bowel obstruction. Hypertensive on arrival to ER. Strong situational component and underlying discomfort contributing. Treated with IV Lopressor overnight for HTN urgency and there was concern regarding episode of transient bradycardia on bus monitor. After further review, these strips are consistent with NSR with 1st degree AV block and PVC's in the form of bigeminy. The PVC's were not being conducted and counted by the bus monitor. There was no evidence of significant bradycardia or high degree AV block. Home dose metoprolol succinate 12.5 mg BID was held/discontinued. She had recent outpatient ZIO without bradyarrhythmias and rare PVC's. Recommend resuming metoprolol succinate 12.5 mg BID at this time. Acceptable to titrate lisinopril as needed for BP support. Surgery has been consulted for SBO obstruction. Will proceed with updated echo for further potential preop risk stratification given HTN, PVC's and outpatient echo pending. Acceptable to remove pacer pads at this time. 11/11/23: Abdominal pain improving. No BM yet. No need for surgical intervention at this time. Echo with hyperdynamic LVEF, moderate LVH. No bradycardia on telemetry Metoprolol resumed at 12.5 mg BID (home dose) Continue lisinopril 5 mg Add amlodipine 2.5 mg daily and titrate as needed for BP. Patient has been hesitant in regards to medication adjustments. Monitor BP. Case discussed with Dr. Sanjeev Dickinson spent a total of 30 minutes on the date of service in preparation, delivery, and documentation of the care provided to this patient, excluding any time spent in the performance of separately billed services. Meenakshi Doshi PA-C Department of Cardiology, [facility] This chart was completed in part utilizing Speech Voice Recognition Software. Grammatical errors, random word insertions, pronoun errors, and incomplete sentences are an occasional consequence of this system due to software limitations, ambient noise, and hardware issues. Any formal questions or concerns about the content, text, or information contained within the body of this dictation should be directly addressed to the provider for clarification. Admission and Anticipated Discharge Date Admission Date: November 09, 2023 Supervising Physician Co-Signing Physician Notes Patient was seen and personally examined. Full assessment and plan as outlined by advanced provider as above. Care and management discussed and personally endorsed 83-year-old female presented with abdominal pain and discomfort evidence of partial small bowel obstruction. While on telemetry was noted to have transient bigeminy with artifactual lowering of heart rate on the monitor (ventricular ectopy not detected) No pauses or bradycardia arrhythmias As above beta-tali resumed for chronic ventricular ectopy suppression Antihypertensive regimen titrated with addition of amlodipine to regimen Medication use was discussed in detail with patient Still awaiting full return of bowel function I spent a total of 15 minutes on the date of service in preparation, delivery, and documentation of the care provided to this patient, excluding any time spent in the performance of separately billed services. This chart was completed in part utilizing Speech Voice Recognition Software. Grammatical errors, random word insertions, pronoun errors, and incomplete sentences are an occasional consequence of this system due to software limitations, ambient noise, and hardware issues. Any formal questions or concerns about the content, text, or information contained within the body of this dictation should be directly addressed to the provider for clarification. Subjective Patient resting in chair feeling well. No abdominal pain. No BM yet. No dizziness or lightheadedness. No chest pain or dyspnea. No orthopnea, PND. Chronic ankle edema noted Review of Systems Review of Systems: All systems reviewed & are unremarkable except as noted in HPI & below Physical Exam Constitutional: well developed; no acute distress Respiratory: normal respiratory effort, lungs clear to auscultation Cardiovascular: Rate/Rhythm: regular rate and regular rhythm Heart Sounds: no murmur Vessels: no JVD Extremities: + edema (1+ LE edema) Gastrointestinal (Abdomen): Inspection/Auscultation: abdomen normal to inspection; abdomen not distended Percussion/Palpation: abdomen nontender Neurologic: PERRL, EOMI, accommodation nl, no face palsy, no dysarthria Psychiatric: A+Ox3, euthymic affect Results & Data Vital Signs (Past 12 Hours) Vital Signs Temp Pulse Pulse Resp BP Pulse Ox O2 Del Method 11/11/23 07:07 36.3 C L 84 20 181/96 H 97 Room Air 11/11/23 07:00 72 11/11/23 04:19 36.5 C 70 18 167/91 H 97 Room Air Laboratory Results CBC 11/11/23 Range/Units 03:59 WBC 5.28 (4.8-10.8) K/ul RBC 4.01 L (4.20-5.40) M/uL Hgb 12.1 (12.0-16.0) g/dl Hct 36.1 L (37.0-47.0) % Plt Count 254 (130-400) K/uL Comprehensive Metabolic Panel 11/11/23 Range/Units 03:59 Sodium 139 (136-145) mmol/L Potassium 3.5 (3.5-5.1) mmol/L Chloride 110 H (98-107) mmol/L Carbon Dioxide 22 (21-32) mmol/L BUN 11 (6-23) mg/dl Creatinine 0.55 L (0.6-1.2) mg/dl Glucose 70 (70-99(Fasting)) mg/dl Calcium 8.0 L (8.6-10.3) mg/dl Intake and Output 11/10/23 11/11/23 11/11/23 22:59 06:59 14:59 Intake Total 1069 / 1833 150 / 150 Balance 1069 / 1833 150 / 150 Intake: IV 1069 / 1833 150 / 150 Acetaminophen 1,000 mg In 100 100 / 100 100 / 100 ml @ 400 mls/hr IV Q8H PRN Rx#: [id number] Sodium Chloride 0.9% 1,000 ml @ 969 / 1733 60 mls/hr IV .[id number] [facility] Rx#: [id number] cefTRIAXone SODIUM 2,000 mg In 50 / 50 50 ml @ 100 mls/hr IV Q24H [facility] Rx#:[id number] Other: # Unmeasured Voids 2 2 Weight 82.9 kg Weight Measurement Method Built in [facility] Diagnostic Findings Telemetry reviewed: NSR in the 70-80's; occ PVC. No bradycardia Echo report reviewed from 11/10/23: Normal LV size and function EF hyperdynamic at > 70% Grade I diastolic dysfunction Aortic valve sclerosis mild without significant aortic valvular stenosis Medications Administered Current Inpatient Medications Amlodipine Besylate (Amlodipine Besylate 5 Mg Tab) 2.5 mg PO QAM [facility] Stop: 12/11/23 08:59 Last Admin: 11/11/23 09:33 Dose: 2.5 mg Atropine Sulfate (Atropine Sulfate 0.1 Mg/Ml 10ml Syr) 1 mg IV Q3M PRN PRN Reason: symptomatic bradycardia Stop: 12/10/23 03:05 Enoxaparin Sodium (Enoxaparin Inj 40 Mg/0.4 Ml Syr) 40 mg SQ QAM [facility] Stop: 12/10/23 08:59 Last Admin: 11/11/23 08:26 Dose: 40 mg Hydralazine HCl (Hydralazine Hcl 20 Mg/Ml Vial) 5 mg IV Q4H PRN PRN Reason: Hypertension Stop: 12/10/23 14:35 Sodium Chloride (Nss) 1,000 mls @ 60 mls/hr IV .[id number] [facility] Stop: 12/09/23 23:14 Last Admin: 11/11/23 05:56 Dose: 60 mls/hr Promethazine HCl 6.25 mg/ (Sodium Chloride) 50.25 mls @ 201 mls/hr IV Q6H PRN PRN Reason: Nausea And Vomiting Stop: 12/10/23 00:21 Acetaminophen (Ofirmev) 1,000 mg in 100 mls @ 400 mls/hr IV Q8H PRN PRN Reason: pain/fever Stop: 11/13/23 00:21 Last Infusion: 11/11/23 09:33 Dose: Infused Ceftriaxone Sodium (Rocephin) 2,000 mg in 50 mls @ 100 mls/hr IV Q24H [facility] Stop: 11/21/23 05:59 Last Infusion: 11/11/23 07:16 Dose: Infused Lisinopril (Lisinopril 5 Mg Tab) 5 mg PO QAM [facility] Stop: 12/10/23 08:59 Last Admin: 11/11/23 08:25 Dose: 5 mg Metoprolol Succinate (Metoprolol Succ 25mg Ext Rel Tab) 12.5 mg PO BID [facility] Stop: 12/10/23 11:59 Last Admin: 11/11/23 08:25 Dose: 12.5 mg Morphine Sulfate (Morphine Sulfate 2 Mg/Ml Carp) 2 mg IV Q6H PRN PRN Reason: Pain Stop: 11/24/23 00:21 Pantoprazole Sodium (Pantoprazole 40 Mg Tab) 40 mg PO QAM [facility] Stop: 12/10/23 08:59 Last Admin: 11/11/23 08:26 Dose: 40 mg Pravastatin Sodium (Pravastatin Sod 20 Mg Tab) 20 mg PO DAILY [facility] Stop: 12/10/23 08:59 Last Admin: 11/11/23 08:26 Dose: 20 mg
--- NOTE | 2023-11-11 15:50 | XRay Report ---
KUB HISTORY: Small bowel obstruction. Follow-up. COMPARISON: Abdomen and pelvis CT 11/09/2023. FINDINGS: There again noted a few dilated loops of small bowel within the abdomen consistent the tamia ent's known small bowel obstruction. In comparison to the recent abdomen and pelvis CT this appears t o be secondary to a left lower quadrant abdominal wall hernia. Evidence for prior ventral hernia repa ir. There is gas and stool remaining within the colon.. No renal calculi. No ureteral calculi. No pn eumoperitoneum or pneumatosis. IMPRESSION: Persistent small bowel obstruction. This appears to be secondary to a left lower quadrant abdominal w all hernia. Therefore, surgical consultation recommended for decompression. This report was called/fa xed to the ordering physician following dictation. ACT 112: Negative or not required by law. Electronically signed by: Sukhwinder Noland M.D. 11/11/2023 3:48 PM
--- NOTE | 2023-11-11 16:56 | Hospitalist Progress Note ---
Date of Service November 11, 2023 Assessment & Plan (1) Asymptomatic hypertensive urgency: Plan: 83-year-old female with PMH of HTN, HLD, left breast cancer status post surgery/radiation/tamoxifen treatment, prediabetes, past tobacco abuse presented to the ED 11/08 with complaint of lower abdominal discomfort reminiscent of diverticulitis attack. Patient also complained of constipation. Denied any nausea or vomiting or fever or chills or headache or dizziness. Her initial labs SBPs was in 200s at presentation. She is being managed for the following: Small bowel obstruction Patient presenting with lower abdominal pain and constipation Admitting CTAP consistent with small bowel obstruction likely from postoperative adhesions. Cl liq diet, IV fluids. Pain management. General surgery on board, appreciate recommendation. Patient is moving gas, reports improvement in her lower belly pain. NO BM. No N,V. Hypertensive urgency: Initial SBP's in 200s, likely secondary to pain secondary to a small bowel obstruction. Expect to improve with improvement in SBO. As needed blood pressure medication, continue home blood pressure medication. Telemetry monitoring. Amlod added 11/10. Abnormal admitting CTAP: Endometrial complex measuring up to 3.1 cm, follow-up with gynecology upon discharge. Complicated UTI: Continue with ceftriaxone 11/09, UCx contaminated. complete 3 days course. Concern for symptomatic bradycardia: Patient heart rate noted to be 30s around 2:30 AM as per RN on 11/09. Patient felt lightheaded during episode per HnP. Cardio on board - no evidence of significant bradycardia or high degree AV block, appreciate recs. Other chronic medical conditions: Continue with/resume home meds as and when able. valvular heart disease (mild MR/TR, TTE 2018) hyperlipidemia on statin Rx left breast cancer status post surgery/radiation/tamoxifen Rx, in remission prediabetes, 5.9 last July 2023 past tobacco abuse DVT prophylaxis. Lovenox subcu Full code Patient Mr. Matti Cheung, contact #[phone]. Text document was generated using [employer] voice recognition software. It may contain grammatical or spelling errors. Kindly contact undersigned for clarification of any documentation item in question. Admission and Anticipated Discharge Date Admission Date: November 09, 2023 Subjective Patient was seen and examined at bedside. Patient was sitting up in chair, on room air, NAD, resting comfortably. Patient reports moving gas, reports no abdominal pain. No BM so far. Patient denies febrile illness or cough or chest pain or dizziness. Physical Exam Physical Exam: GENERAL: NAD, obese, pleasant, no respiratory distress SKIN: Normal color, warm HEENT: [place] palpebral conjunctivae, no ptosis, moist buccal mucosa NECK : Supple, short neck, no tenderness CHEST : CTA, no tenderness HEART : RRR, no obvious murmurs ABDOMEN: distention, hypogastric tenderness resolved EXTREMITIES : Minimal LE swelling, no LE tenderness, no other conspicuous deformities noted NEUROLOGIC : Coherent, no facial asymmetry, no other gross focality Results & Data Results & Data Vital Signs (Past 12 Hours) Vital Signs Temp Pulse Pulse Resp BP Pulse Ox O2 Del Method 11/11/23 15:37 36.4 C L 96 H 19 167/81 H 99 Room Air 11/11/23 07:07 36.3 C L 84 20 181/96 H 97 Room Air 11/11/23 07:00 72
[2023-11-11 19:20] VITALS: RESP 18
[2023-11-12 06:27] LABS: Hematocrit (blood only) 35.2 % (37.0-47.0); Hemoglobin 12.1 g/dl (12.0-16.0); Mean Corpuscular Hemoglobin 30.8 pg (25.0-34.0); Mean Corpuscular Hgb Conc 34.4 g/dL (32.0-36.0); Mean Corpuscular Volume 89.6 fL (80.0-100.0); Mean Platelet Volume 10.3 fL (9.4-12.4); Platelet Count 253 K/uL (130-400); RDW Coefficient of Variation 12.9 % (11.5-14.5); RDW Standard Deviation 42.5 fL (36.4-46.3); Red Blood Count 3.93 M/uL (4.20-5.40); White Blood Count 4.57 K/ul (4.8-10.8)
[2023-11-12 06:35] LABS: BUN Creatinine Ratio 15.4 (10-20); Calcium 7.7 mg/dl (8.6-10.3); Creatinine Clr Calc Pharmacy 77.2 ml/min; Est GFR (African American) 102.4 ml/min; Est GFR (Non-African American) 88.4 ml/min; Phosphorus 2.6 mg/dl (2.5-4.9); Potassium 3.6 mmol/L (3.5-5.1)
[2023-11-12 12:19] VITALS: O2SAT 97
--- NOTE | 2023-11-12 15:18 | Surgery Progress Note ---
<Statement entered by Elaina Mcgovern, - 11/12/23 16:19> Patient may D/C to home. Multiple small meals throughout the day. Date of Service November 12, 2023 Assessment & Plan (1) SBO (small bowel obstruction): Plan: Pt with history of hernia repair and mesh here with SBO She is feeling much better today and feels that she is ready to go home. She is tolerating a low fiber diet. She has been moving her bowels and denies nausea or vomiting. She is ok to go home from a General Surgery standpoint. She was reminded to go slow with her diet, eating small meals throughout the day. Return precautions reviewed. Patient seen and examined with Dr. Mcgovern. Admission and Anticipated Discharge Date Admission Date: November 09, 2023 Subjective Maria A is sitting in chair by bed, eating lunch. She has been advanced to a low fiber diet. She reports that she is feeling well. She denies abdominal pain, denies nausea or vomiting. She is moving her bowels. Review of Systems Constitutional: as per Subjective / HPI; no fever and no chills Cardiovascular: no chest pain Gastrointestinal: no abdominal pain, no nausea and no vomiting Physical Exam Physical Exam: awake/alert, sitting up in chair Gastrointestinal (Abdomen): Inspection/Auscultation: abdomen not distended Percussion/Palpation: abdomen soft; no guarding and abdomen not rigid Results & Data Vital Signs (Past 12 Hours) Vital Signs Temp Pulse Pulse Resp BP BP Pulse Ox 11/12/23 12:17 36.4 C L 66 18 162/82 H 97 11/12/23 08:01 36.3 C L 77 18 177/84 H 98 11/12/23 07:00 74 11/12/23 03:23 36.4 C L 66 18 153/78 H 97 O2 Del Method 11/12/23 12:17 Room Air 11/12/23 08:01 Room Air 11/12/23 07:00 11/12/23 03:23 Room Air PG Care Time/CCT Total # of Minutes Spent Total Time Spent with Patient: Total time spent is greater than 50% in coordination of care (as documented) at patient's floor/unit and/or counseling patient: Coding Level of Care Code 32632 SUB INP/OBS CARE 07/07MIN Diagnoses SBO (small bowel obstruction) K56.609
[2023-11-12 15:22] VITALS: BP 168/79; PULSE 69; TEMP 97.3
--- NOTE | 2023-11-12 15:56 | Discharge Summary ---
Date of Service November 12, 2023 Admission HPI Per Admitting Provider History obtained from patient, family, and records. Medical history significant for valvular heart disease (mild MR/TR, TTE 2018), hypertension, hyperlipidemia, left breast cancer status post surgery/radiation/tamoxifen Rx, prediabetes, past tobacco abuse. Last confinement August 2018 for palpitations attributed to PVCs. This morning, patient noted achy lower abdominal discomfort reminiscent of diverticulitis attack. Some constipation. No nausea, no emesis. No fever, no chills. No headache, no chest pain, no SOB. Patient brought to ER by family. Initial SBP 200s. Medical History as above Patient home beta-tali increased in frequency last month following ER visit for uncontrolled BP, dizziness, SOB, palpitations. Outpatient Zio patch ordered by PCP last month showed Fifteen patient triggered events were submitted and two diary events were submitted. Symptoms correlated with sensed premature ventricular contractions and premature atrial contractions. The overall frequency of the premature ventricular contractions was moderate, accounting for 1% of the total QRS complexes. No symptoms were associated with relatively brief episodes of supraventricular tachycardia. Surgical History : Partial mastectomy left, hernia repair, breast biopsy, cataract surgeries Family History : Dementia, breast cancer, heart disease, stroke Personal/Social history : Past tobacco abuse, no EtOH intake, retired [employer] employee Admission Exam Per Admitting Provider GENERAL: Slightly uncomfortable, obese, pleasant, no respiratory distress SKIN: Normal color, warm HEENT: [place] palpebral conjunctivae, no ptosis, dry buccal mucosa NECK : Supple, short neck, no tenderness CHEST : CTA, no tenderness HEART : RRR, no obvious murmurs ABDOMEN: distention, hypogastric tenderness EXTREMITIES : Minimal LE swelling, no LE tenderness, no other conspicuous deformities noted NEUROLOGIC : Coherent, no facial asymmetry, no other gross focality Principal Diagnosis Small bowel obstruction Hypertensive urgency Abnormal admitting CTAP Discharge Exam GENERAL: NAD, obese, pleasant, no respiratory distress SKIN: Normal color, warm HEENT: [place] palpebral conjunctivae, no ptosis, moist buccal mucosa NECK : Supple, short neck, no tenderness CHEST : CTA, no tenderness HEART : RRR, no obvious murmurs ABDOMEN: distention, hypogastric tenderness resolved EXTREMITIES : Minimal LE swelling, no LE tenderness, no other conspicuous deformities noted NEUROLOGIC : Coherent, no facial asymmetry, no other gross focality Discharge Data Allergies Allergy/AdvReac Type Severity Reaction Status Date / Time aspirin AdvReac Intermediate HX Verified 11/09/23 23:31 BLEEDING ULCERS Consultations 11/09/23 23:15 ED Decision to Admit Stat 11/10/23 00:48 Consult General Surgery Routine 11/10/23 03:08 Consult Cardiology Routine Ordered Studies 11/09/23 19:47 CT abd pelvis IV con only Stat Hospital Course (1) Asymptomatic hypertensive urgency: 83-year-old female with PMH of HTN, HLD, left breast cancer status post surgery/radiation/tamoxifen treatment, prediabetes, past tobacco abuse presented to the ED 11/08 with complaint of lower abdominal discomfort reminiscent of diverticulitis attack. Patient also complained of constipation. Denied any nausea or vomiting or fever or chills or headache or dizziness. Her initial labs SBPs was in 200s at presentation. She is being managed for the following: Small bowel obstruction Patient presenting with lower abdominal pain and constipation Admitting CTAP consistent with small bowel obstruction likely from postoperative adhesions. Patient moved bowel, discussed with general surgery, advanced diet to low fibe r diet. General surgery evaluated, patient good to be discharged from their point of view. Patient advised to have low fiber diet, small volume at the time. Hypertensive urgency: Initial SBP's in 200s, likely secondary to pain secondary to a small bowel obstruction. Expect to improve with improvement in SBO. As needed blood pressure medication, continue home blood pressure medication. Telemetry monitoring. Amlod added 11/10. Patient advised to measure blood pressure twice a day, maintain a log, follow-up with PCP office for ongoing management. Abnormal admitting CTAP: Endometrial complex measuring up to 3.1 cm, follow-up with gynecology upon discharge. Patient has been made aware. Complicated UTI: Continue with ceftriaxone 11/09, UCx contaminated.s/p 3 days course. Concern for symptomatic bradycardia: Patient heart rate noted to be 30s around 2:30 AM as per RN on 11/09. Patient felt lightheaded during episode per HnP. Cardio on board - no evidence of significant bradycardia or high degree AV block, appreciate recs. Other chronic medical conditions: Continue with/resume home meds as and when able. valvular heart disease (mild MR/TR, TTE 2018) hyperlipidemia on statin Rx left breast cancer status post surgery/radiation/tamoxifen Rx, in remission prediabetes, 5.9 last July 2023 past tobacco abuse DVT prophylaxis. Lovenox subcu Full code Patient Mr. Matti Cheugn, contact #[phone]. Patient is being discharged with following instruction at the point of discharge: Follow-up with your primary care physician within a week time and likely you will need labs CBC/CMP/magnesium/phosphorus. You were admitted for small bowel obstruction, recommend low fiber diet, eat small volume at a time. You can have multiple frequencies of food intake throughout the day. Your blood pressure were elevated while in the hospital, amlodipine has been added. Continue to measure blood pressure twice a day, maintain a log to take to your primary care physician within a week time for ongoing management of your blood pressure. Also during hospital stay, your CT scan of the abdomen and pelvis revealed endometrial complex measuring up to 3.1 cm. Recommend to follow-up with gynecology upon discharge. Coordinate with your PCP office to set up the referral. Take your medications as prescribed. Please make sure that you are able to get your medications today by calling your pharmacy before you leave the hospital so that your treatment continuity is not broken. Text document was generated using [employer] voice recognition software. It may contain grammatical or spelling errors. Kindly contact undersigned for clarification of any documentation item in question. Home Health Attestation I certify that this patient is under my care and that I, or a physicians digital assistant working with me, had a face to-face encounter that meets the home health [id number] encounter requirements with this patient. The encounter with the patient was in whole, or in part, for the following medical condition, which is the primary reason for home health care (list medical condition): I certify that, based on my findings, the following services are medically necessary home health services: My clinical findings support the need for the above services because: Further, I certify that my clinical findings support that this patient is homebound (i.e. absences from home require considerable and taxing effort and are for medical reasons or samaritan services or infrequently or of short duration when for other reasons) because: Certification for Home Health Services: Based on the above findings, I certify that this patient is confined to the home and needs intermittent intermediate care, physical therapy and/or speech therapy or continues to need occupational therapy. The patient is under my care, and I have initiated the establishment of the plan of care. This patient will be followed by a physician who will periodically review the plan of care. Total Time Total Time Spent Total Time Spent (In Minutes): 45 Discharge Plan Discharge Items Patient Disposition: Home - Self-Care Reason For Visit: HTN URG, SBO Discharge Diagnosis: Small bowel obstruction Hypertensive urgency Abnormal admitting CTAP Activity: Resume your previous activity Non-emergency contact: Primary Care Provider Call non-emergency contact if: you have any medication questions, your symptoms worsen and your pain is worsening Follow-up/Referrals: Janell Cain MD [Primary Care Provider] - Diet: Low Fiber Addtl Attending Provider Instructions: Follow-up with your primary care physician within a week time and likely you will need labs CBC/CMP/magnesium/phosphorus. You were admitted for small bowel obstruction, recommend low fiber diet, eat small volume at a time. You can have multiple frequencies of food intake throughout the day. Your blood pressure were elevated while in the hospital, amlodipine has been a dded. Continue to measure blood pressure twice a day, maintain a log to take to your primary care physician within a week time for ongoing management of your blood pressure. Also during hospital stay, your CT scan of the abdomen and pelvis revealed endometrial complex measuring up to 3.1 cm. Recommend to follow-up with gynecology upon discharge. Coordinate with your PCP office to set up the ref erral. Take your medications as prescribed. Please make sure that you are able to get your medications today by calling your pharmacy before you leave the hospital so that your treatment continuity is not broken. Pending Studies at Discharge: No Stand-Alone Forms: My [facility] [employer], Smoking Cessation Medications and DC Order Prescriptions: New amlodipine [Norvasc] 5 mg Tablet 2.5 mg PO QAM Qty: 15 0RF Continued pantoprazole 40 mg tablet,delayed release (DR/EC) 40 mg PO QAM pravastatin 20 mg tablet 20 mg PO DAILY lisinopril 5 mg Tablet 5 mg PO QAM metoprolol succinate 25 mg tablet extended release 24 hr 12.5 mg PO AMHS hydrochlorothiazide 25 mg tablet 25 mg PO [id number] Rx Instructions: may take as needed for edema magnesium 250 mg Tablet 250 mg PO QAM cholecalciferol (vitamin D3) [Vitamin D3] 50 mcg (2,000 unit) Tablet 50 mcg PO DAILY Prolia 60 mg/mL Syringe 60 mg SUBCUT .EVERY 6 MONTHS Rx Instructions: last dose July 2022 Hair,Skin and Nails Tablet 2 tab PO DAILY Turmeric Curcumin 5-1000mg 1,000 mg PO DAILY calcium carbonate-vitamin D3 [Calcium 600 + D(3)] 600 mg-5 mcg (200 unit) Tablet 2 tab PO DAILY glucosamine-chondroitin [Osteo Bi-Flex] 250-200 mg Tablet 2 tab PO DAILY Rx Instructions: give after food/meal cranberry extract 500 mg Capsule 1,000 mg PO DAILY Rx Instructions: administer with meals apple cider vinegar 300 mg Tablet 300 mg PO DAILY Probiotic Digestive Care 10-15 mg Tablet,Delayed Release (Dr/Ec) 1 tab PO QAM Juice Plus Fibre Liquid 2 ea PO DAILY Rx Instructions: 2 doses daily of fruit and vegetables Discharge Orders: Discharge Order (Routine); Ordered 11/12/23 Ordered By: Mundo Cancino Admission Data Admit Date/Time: 11/09/23 23:40 Attending Provider: Mundo Cancino Admit Provider: Thaddeus Ferreira Primary Care Provider: Janell Cain Other Providers: Thaddeus Ferreira; Lorena Inman; Isrrael Garcia; Tom Loya; Ashu Vernon; Pato Pennington; Maritza Balderrama; Joseph Bonilla; Jerald Russ Kennita L.; Murtaza France; Chelsea Tejeda; Jayce Skelton; Pablo Pace; Gen Solorzano; Melvin Vences; Jason Key Rebecca K; Cristal Bond; Sumit Lazo Ashley M.; Alonzo Beckford; Keven Love; Maritza lBock; Livia Vega; Brianne Ponce; Mitzy Herrera; Lennox Garcia; Renae Alatorre
== END 2023-11-12 18:07 | disposition home or self-care (01) | DRG 389 ==
LOC: ED 19:13 → EDINP 23:40 → 4W 11-10 12:32